=== PATIENT | female | born 1945 | race Caucasian/White ===

== ENCOUNTER 2018-05-12 20:30 | Inpatient (IN) | payer MEDICARE ==
[~2018-05-12] VITALS: Ht 167.6 cm; Wt 97.2 kg
[2018-05-12] MEDS ORDERED: MAG HYDROX/AL HYDROX/SIMETH 30 ML ORAL.SUSP PO PRN (21:45)
[2018-05-12] MEDS ORDERED: METHYL SALICYLATE/MENTHOL TOPICAL OINTMENT 29GM TUBE. TP PRN (21:45)
[2018-05-12] MEDS ORDERED: MAGNESIUM HYDROXIDE 2,400 MG/30 ML ORAL.SUSP. PO PRN (21:45)
[2018-05-12] MEDS ORDERED: ACETAMINOPHEN 325 MG TABLET PO PRN (21:45)
--- NOTE | 2018-05-12 21:49 | EKG ---
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
[2018-05-12 22:22] LABS: BASO % 0 % (0-3); EOS # 0.1 x10^3/uL (0.0-0.7); EOS % 3 % (0-3); HEMATOCRIT 31.8 % (36.0-47.0); HEMOGLOBIN 10.7 g/dL (12.0-15.5); LYMPH # 0.9 x10^3/uL (1.0-4.8); LYMPH % 21 % (24-48); MEAN CORPUSCULAR HEMOGLOBIN 28 pg (25-35); MEAN CORPUSCULAR HGB CONC 34 g/dL (31-37); MEAN CORPUSCULAR VOLUME 83 fL (79-100); MONO # 0.5 x10^3/uL (0.0-1.1); MONO % 11 % (0-9); NEUT # 2.8 x10^3uL (1.8-7.7); NEUT % 65 % (31-73); PLATELET COUNT 228 x10^3/uL (140-400); RED BLOOD COUNT 3.85 x10^6/uL (3.50-5.40); RED CELL DISTRIBUTION WIDTH 17.7 % (11.5-14.5); WHITE BLOOD COUNT 4.3 x10^3/uL (4.0-11.0)
[2018-05-12] MEDS ORDERED: ASCO500T3 PO (22:24)
[2018-05-12] MEDS ORDERED: HYDR30CR61 RC (22:24)
[2018-05-12] MEDS ORDERED: XOPENEX1.25 MG/3 IH (22:24)
[2018-05-12] MEDS ORDERED: CYAN100T PO (22:24)
[2018-05-12] MEDS ORDERED: ACET325T9 PO (22:24)
[2018-05-12] MEDS ORDERED: CARB1TAB2 PO (22:24)
[2018-05-12] MEDS ORDERED: MULT1TAB52 PO (22:24)
[2018-05-12] MEDS ORDERED: SERT50TA PO (22:24)
[2018-05-12] MEDS ORDERED: ROPI1TAB PO ×2 (22:24)
[2018-05-12] MEDS ORDERED: VITA200C7 PO (22:24)
[2018-05-12] MEDS ORDERED: LEVE500T56 PO (22:24)
[2018-05-12] MEDS ORDERED: CEFD300C PO (22:24)
[2018-05-12] MEDS ORDERED: BACL10TA PO (22:24)
[2018-05-12] MEDS ORDERED: PANT20TA58 PO (22:24)
[2018-05-12] MEDS ORDERED: MAGN400T22 PO (22:24)
[2018-05-12] MEDS ORDERED: [UNRECOGNIZED DRUG - CODE] PO (22:24)
[2018-05-12] MEDS ORDERED: CALC1TAB75 PO (22:24)
[2018-05-12] MEDS ORDERED: KRIL1CAP8 PO (22:24)
[2018-05-12] MEDS ORDERED: POTA20TA82 PO (22:24)
[2018-05-12] MEDS ORDERED: BENA20TA16 PO (22:24)
[2018-05-12] MEDS ORDERED: OMEG1CAP2 PO (22:24)
[2018-05-12 22:30] LABS: ALBUMIN 2.9 g/dL (3.4-5.0); CREATININE 0.7 mg/dL (0.6-1.0); GFR 82.3; MAGNESIUM 1.4 mg/dL (1.8-2.4); POTASSIUM 3.3 mmol/L (3.5-5.1); TOTAL BILIRUBIN 0.4 mg/dL (0.2-1.0); TOTAL PROTEIN 5.8 g/dL (6.4-8.2)
[2018-05-12] MEDS ORDERED: HYDROCORTISONE 2.5% RECTAL CREAM 30GM TUBE. RC PRN (22:30)
[2018-05-12] MEDS ORDERED: NON FORMULARY ITEM (Levalbuterol Hcl (Xopenex) 1.25 MG) IH PRN (22:45)
[2018-05-12] MEDS ORDERED: DEXTROSE 50% 25 GM / 50ML DISP.SYRIN. IV PRN (22:45)
[2018-05-12] MEDS: CARBIDOPA/LEVODOPA 25/100MG TABLET PO SCH (22:50)
[2018-05-12] MEDS: levETIRAcetam 500 MG TABLET PO SCH (22:52)
[2018-05-12] MEDS: BACLOFEN 10 MG TABLET PO SCH (22:52)
[2018-05-12] MEDS ORDERED: ALBUTEROL SULFATE 2.5 MG/3 ML NEBU. NEB PRN (23:00)
[2018-05-12] MEDS: CEFPODOXIME PROXETIL 100 MG TABLET PO SCH (23:07)
[2018-05-13] MEDS: ACETAMINOPHEN 325 MG TABLET PO PRN (01:37)
[2018-05-13] MEDS: rOPINIRole 1 MG TABLET. PO SCH ×3 (01:42→14:18)
[2018-05-13] MEDS: CARBIDOPA/LEVODOPA 25/100MG TABLET PO SCH ×8 (01:43→22:58)
[2018-05-13] MEDS: ENTACAPONE 200 MG TABLET PO SCH ×6 (04:00→20:00)
[2018-05-13 04:30] VITALS: BP 176/85
[2018-05-13] MEDS: CALCIUM CARB/VIT D3 500/200 TABLET PO SCH ×2 (05:44→08:08)
[2018-05-13 06:02] VITALS: BP 144/68
[2018-05-13] MEDS: INSULIN LISPRO 300 UNITS/3 ML INSULN.PEN. SQ SCH ×3 (08:00→17:00)
[2018-05-13] MEDS: MAGNESIUM OXIDE 400 MG TABLET PO SCH (08:08)
[2018-05-13] MEDS: MULTIVITAMIN with MINERAL TABLET. PO SCH (08:08)
[2018-05-13] MEDS: levETIRAcetam 500 MG TABLET PO SCH ×2 (08:08→20:12)
[2018-05-13] MEDS: LACTOBACILLUS RHAMNOSUS GG 1 CAPSULE. PO SCH ×2 (08:08→20:12)
[2018-05-13] MEDS: CEFPODOXIME PROXETIL 100 MG TABLET PO SCH ×2 (08:08→20:13)
[2018-05-13] MEDS: POTASSIUM CHLORIDE 20 MEQ TABLET.ER. PO SCH (08:08)
[2018-05-13] MEDS: LISINOPRIL 20 MG TABLET PO SCH (08:08)
[2018-05-13] MEDS: BACLOFEN 10 MG TABLET PO SCH ×4 (08:09→20:12)
[2018-05-13] MEDS: PANTOPRAZOLE 40 MG TABLET. PO SCH ×2 (08:09→17:42)
[2018-05-13] MEDS ORDERED: SERTRALINE 50 MG TABLET. PO SCH (09:00)
[2018-05-13 11:52] LABS: THYROID STIM HORMONE (TSH) 1.754 uIU/mL (0.358-3.740)
[2018-05-13] MEDS ORDERED: CLON0.5T11 PO (13:38)
[2018-05-13] MEDS ORDERED: OXYC-411 PO (13:38)
[2018-05-13] MEDS ORDERED: SERT25TA PO (13:38)
[2018-05-13] MEDS ORDERED: METF10007 PO (13:38)
[2018-05-13] MEDS ORDERED: METF500T16 PO (13:38)
[2018-05-13] MEDS ORDERED: oxyCODONE/APAP 10/325 1 TAB TABLET PO PRN (13:45)
[2018-05-13] MEDS: clonazePAM 0.5 MG TABLET PO SCH ×2 (14:21→20:15)
[2018-05-13 15:42] VITALS: BP 145/73
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
[2018-05-13] MEDS ORDERED: OMEGA ACID ETHYL ESTERS PO SCH (17:00)
[2018-05-13] MEDS: VITAMIN E 200 UNIT CAPSULE. PO SCH (17:00)
[2018-05-13] MEDS: metFORMIN 500 MG TABLET PO SCH (17:41)
[2018-05-13] MEDS: CYANOCOBALAMIN (VITAMIN B-12) 1,000 MCG TABLET. PO SCH (17:42)
[2018-05-13] MEDS: OMEGA-3 FATTY ACIDS/FISH OIL 1,000 MG CAPSULE. PO SCH (17:42)
[2018-05-13] MEDS: rOPINIRole 2 MG TABLET. PO SCH (17:42)
[2018-05-13] MEDS: ASCORBIC ACID 500 MG TABLET PO SCH (17:42)
[2018-05-13 21:07] LABS: HEMOGLOBIN A1C 5.8 % (4.8-5.6); THYROXINE 7.7 ug/dL (4.5-12.0)
--- NOTE | 2018-05-13 22:49 | PDOC ---
Exam Note: Junior Note: Please also refer to the separate dictated note~for this date of service dictated separately.~Patient seen individually. Discussed the patient with Nursing staff reviewed the chart.~Reviewed interim history and current functioning. Reviewed vital signs,~Labs/ Radiology~and current medications noted below. Continue current treatment with the changes noted in the dictated addendum note Assessment: Vital Signs: Vital Signs Date Time Temp Pulse Resp B/P (MAP) Pulse Ox O2 Delivery O2 Flow Rate FiO2 05/13/18 15:42 99.1 77 20 145/73 (97) 95 I&O Intake and Output 05/13/18 07:00 Intake Total 120 ml Balance 120 ml Intake Oral 120 ml # Voids 1 Labs: Laboratory Tests Test 05/12/18 22:54 05/13/18 07:13 05/13/18 11:25 05/13/18 16:53 Glucose (Fingerstick) 152 mg/dL (70-99) H 141 mg/dL (70-99) H 166 mg/dL (70-99) H 153 mg/dL (70-99) H Test 05/13/18 19:07 Glucose (Fingerstick) 159 mg/dL (70-99) H Current Medications: Meds: Current Medications Acetaminophen (Tylenol) 650 mg PRN Q6HRS PRN PO PAIN / TEMP; Start 05/12/18 at 21:45; Stop 05/12/18 at 22:47; Status DC Multi-Ingredient Ointment (Analgesic [place]) 1 mynor PRN QID PRN TP MUSCLE PAIN; Start 05/12/18 at 21:45 Al Hydroxide/Mg Hydroxide (Mylanta Plus Xs) 15 ml PRN AFTMEALHC PRN PO DYSPEPSIA; Start 05/12/18 at 21:45 Magnesium Hydroxide (Milk Of Magnesia) 2,400 mg PRN QHS PRN PO CONSTIPATION; Start 05/12/18 at 21:45 Sertraline HCl (Zoloft) 50 mg DAILY PO Last administered on 05/13/18at 08:08; Start 05/13/18 at 09:00; Stop 05/13/18 at 13:38; Status DC Acetaminophen (Tylenol) 650 mg PRN Q4HRS PRN PO PAIN / TEMP Last administered on 05/13/18at 01:37; Start 05/12/18 at 22:30 Ascorbic Acid (Vitamin C) 500 mg DAILY@1700 PO Last administered on 05/13/18at 17:42; Start 05/13/18 at 17:00 Carbidopa/Levodopa (Sinemet 25/100) 1.5 tab 0200,0530,1100,1700 PO Last administered on 05/13/18 17:41; Start 05/13/18 at 02:00 Carbidopa/Levodopa (Sinemet 25/100) 1 tab 0845,1415,2000,2230 PO Last administered on 05/13/18at 20:12; Start 05/12/18 at 23:00 Cyanocobalamin (Vitamin B-12) 250 mcg DAILY@1700 PO Last administered on 17:42; Start 05/13/18 at 17:00 Hydrocortisone (Proctosol-Hc) 1 mynor PRN QID PRN RC HEMORRHOIDS; Start 05/12/18 at 22:30 Baclofen (Lioresal) 10 mg QID PO Last administered on 05/13/18at 20:12; Start at 23:00 Entacapone (Comtan) 200 mg Q4HRS PO ; Start 05/13/18 at 00:00 Lisinopril (Prinivil) 20 mg DAILY PO Last administered on 05/13/18at 08:08; Start 05/13/18 at 09:00 Calcium/Vitamin D (Oscal D 500mg/ 200uts) 1 tab BID@0530,0845 PO Last administered on 05/13/18 08:08; Start 05/13/18 at 05:30 Cefpodoxime Proxetil (Vantin) 200 mg BID PO Last administered on 05/13/18at 20: 13; Start 05/12/18 at 23:00; Stop 05/19/18 at 09:01 Fish Oil (Fish Oil) 1,000 mg DAILY@1700 PO Last administered on 05/13/18at 17:42 ; Start 05/13/18 at 17:00 Non-Formulary Medication (Levalbuterol Hcl (Xopenex)) 1.25 mg PRN Q6HRS PRN IH SHORTNESS OF BREATH; Start 05/12/18 at 22:45; Status UNV Levetiracetam (Keppra) 500 mg BID PO Last administered on 05/13/18 20:12; Start 05/12/18 at 23:00 Magnesium Oxide (Magnesium Oxide) 400 mg DAILY PO Last administered on 08:08; Start 05/13/18 at 09:00 Multivitamins/ Calcium (Thera-M Plus) 1 tab DAILY PO Last administered on 08:08; Start 05/13/18 at 09:00 Non-Formulary Medication (Sullivan-3 Acid Ethyl Esters (Lovaza)) 1 gm DAILY@1700 PO ; Start 05/13/18 at 17:00; Stop 05/13/18 at 17:00; Status DC Pantoprazole Sodium (Protonix) 20 mg BIDWMEALS PO Last administered on 17:42; Start 05/13/18 at 08:00 Potassium Chloride (Klor-Con) 20 meq DAILYWBKFT PO Last administered on 08:08; Start 05/13/18 at 08:00 Ropinirole HCl (Requip) 1.5 mg TID@0200,0530,1100 PO Last administered on 14:18; Start 05/13/18 at 02:00 Ropinirole HCl (Requip) 2 mg DAILY@1700 PO Last administered on 05/13/18 17:42 ; Start 05/13/18 at 17:00 Vitamin E 200 unit DAILY@1700 PO Last administered on 05/13/18at 17:00; Start at 17:00 Insulin Human Lispro (HumaLOG) 0-9 UNITS TIDWMEALS SQ Last administered on 05/13at 17:00; Start 05/13/18 at 08:00 Dextrose 12.5 gm PRN Q15MIN PRN IV SEE COMMENTS; Start 05/12/18 at 22:45 Albuterol Sulfate (Ventolin) 2.5 mg PRN Q6HRS PRN NEB SHORTNESS OF BREATH; Start 05/12/18 at 23:00 Lactobacillus Rhamnosus (Culturelle) 1 cap BID PO Last administered on at 20:12; Start 05/13/18 at 09:00 Clonazepam (KlonoPIN) 0.5 mg TID PO Last administered on 9/15/18at 20:15; Start 05/13/18 at 14:00 Oxycodone/ Acetaminophen (Percocet 10/325) 1 tab PRN QID PRN PO PAIN; Start at 13:45 Metformin HCl (Glucophage) 1,000 mg DAILYWBKFT PO ; Start 05/14/18 at 08:00 Metformin HCl (Glucophage) 500 mg DAILYWSUP PO Last administered on 05/13/18at 17:41; Start 05/13/18 at 17:00 Sertraline HCl (Zoloft) 25 mg DAILY PO ; Start 05/14/18 at 09:00 Active Scripts Active Reported Oxycodone-Acetaminophen 10-325 (Oxycodone Hcl/Acetaminophen) 1 Each Tablet 1 Each PO PRN QID PRN Metformin Hcl 500 Mg Tablet 500 Mg PO DAILYWSUP Metformin Hcl 1,000 Mg Tablet 1,000 Mg PO DAILYWBKFT Clonazepam 0.5 Mg Tablet 0.5 Mg PO TID Zoloft (Sertraline Hcl) 25 Mg Tablet 25 Mg PO DAILY Requip (Ropinirole Hcl) 1 Mg Tablet 2 Mg PO DAILY@1700 Requip (Ropinirole Hcl) 1 Mg Tablet 1.5 Mg PO TID@0200,0530,1100 Keppra (Levetiracetam) 500 Mg Tablet 500 Mg PO BID Zoloft (Sertraline Hcl) 50 Mg Tablet 50 Mg PO DAILY Potassium Chloride 20 Meq Tablet.er 20 Meq PO DAILY Protonix (Pantoprazole Sodium) 20 Mg Tablet.dr 20 Mg PO BIDWMEALS Lovaza (Sullivan-3 Acid Ethyl Esters) 1 Gm Capsule 1 Gm PO DAILY@1700 Multivitamins (Multivitamin) 1 Each Tablet 1 Each PO DAILY Mag-Oxide (Magnesium Oxide) 400 Mg Tablet 400 Mg PO DAILY Xopenex (Levalbuterol Hcl) 1.25 Mg/3 Ml Vial.neb 1.25 Mg IH PRN Q6HRS PRN Sullivan-3 Krill Oil 300 Mg Sftg (Krill/Sullivan-3/Dha/Epa/Lipids) 1 Each Capsule 1 Each PO DAILY@1700 Anusol-Hc (Hydrocortisone) 30 Gm Cream..g. 1 Mynor RC PRN QID PRN Comtan (Entacapone) 200 Mg Tablet 50 Mg PO Q4HRS Vitamin E (Vitamin E Acetate) 200 Unit Capsule 200 Unit PO DAILY@1700 Vitamin B-12 (Cyanocobalamin (Vitamin B-12)) 100 Mcg Tablet 100 Mcg PO DAILY@ 1700 Cefdinir 300 Mg Capsule 300 Mg PO BID 7 Days Sinemet 25-100 Mg Tablet (Carbidopa/Levodopa) 1 Each Tablet 1 Each PO QID Sinemet 25-100 Mg Tablet (Carbidopa/Levodopa) 1 Each Tablet 1 Each PO QID Calcium 600 + Vit D 200 Tablet (Calcium Carbonate/Vitamin D3) 1 Each Tablet 1 Each PO BID@0530,0845 Lotensin (Benazepril Hcl) 20 Mg Tablet 20 Mg PO DAILY Baclofen 10 Mg Tablet 10 Mg PO QID Ascorbic Acid 500 Mg Tablet 500 Mg PO DAILY@1700 Tylenol (Acetaminophen) 325 Mg Tablet 650 Mg PO PRN Q4HRS PRN I have reviewed the current psychotropics carefully including drug interactions. Risk benefit ratio favors no change other than as noted in my dictated progress note. Diagnosis: Problems: (1) Anxiety disorder (2) Parkinson's disease (3) Impulse control disorder (4) Major depressive disorder, recurrent episode (5) Delirium due to general medical condition VIRY MCGRAW MD May 13, 2018 22:49
[2018-05-14] MEDS: rOPINIRole 1 MG TABLET. PO SCH ×3 (03:02→13:11)
[2018-05-14] MEDS: ENTACAPONE 200 MG TABLET PO SCH ×4 (03:03→12:00)
[2018-05-14] MEDS: CARBIDOPA/LEVODOPA 25/100MG TABLET PO SCH ×8 (03:03→23:14)
[2018-05-14 05:49] VITALS: BP 161/80
[2018-05-14] MEDS: CALCIUM CARB/VIT D3 500/200 TABLET PO SCH ×3 (06:05→20:05)
[2018-05-14] MEDS: MAGNESIUM OXIDE 400 MG TABLET PO SCH (07:20)
[2018-05-14] MEDS: PANTOPRAZOLE 40 MG TABLET. PO SCH ×2 (07:20→18:18)
[2018-05-14] MEDS: MULTIVITAMIN with MINERAL TABLET. PO SCH (07:20)
[2018-05-14] MEDS: LISINOPRIL 20 MG TABLET PO SCH (07:21)
[2018-05-14] MEDS: CEFPODOXIME PROXETIL 100 MG TABLET PO SCH ×2 (07:21→20:07)
[2018-05-14] MEDS: BACLOFEN 10 MG TABLET PO SCH ×4 (07:21→20:08)
[2018-05-14] MEDS: POTASSIUM CHLORIDE 20 MEQ TABLET.ER. PO SCH (07:22)
[2018-05-14] MEDS: LACTOBACILLUS RHAMNOSUS GG 1 CAPSULE. PO SCH ×2 (07:22→20:08)
[2018-05-14] MEDS: levETIRAcetam 500 MG TABLET PO SCH ×2 (07:22→20:07)
[2018-05-14] MEDS: clonazePAM 0.5 MG TABLET PO SCH ×3 (07:28→20:07)
[2018-05-14] MEDS: metFORMIN 500 MG TABLET PO SCH ×2 (07:28→18:17)
[2018-05-14] MEDS: SERTRALINE 25 MG TABLET. PO SCH (07:37)
[2018-05-14] MEDS: INSULIN LISPRO 300 UNITS/3 ML INSULN.PEN. SQ SCH ×3 (08:00→16:56)
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
[2018-05-14 16:36] VITALS: BP 138/71
[2018-05-14] MEDS: VITAMIN E 200 UNIT CAPSULE. PO SCH (17:00)
[2018-05-14] MEDS: ASCORBIC ACID 500 MG TABLET PO SCH (18:17)
[2018-05-14] MEDS: CYANOCOBALAMIN (VITAMIN B-12) 1,000 MCG TABLET. PO SCH (18:17)
[2018-05-14] MEDS: OMEGA-3 FATTY ACIDS/FISH OIL 1,000 MG CAPSULE. PO SCH (18:18)
[2018-05-14] MEDS: rOPINIRole 2 MG TABLET. PO SCH (18:18)
[2018-05-14] MEDS: ENTACAPONE 200 MG PO SCH ×3 (18:18→23:14)
[2018-05-14] MEDS: oxyCODONE/APAP 10/325 1 TAB TABLET PO SCH (20:10)
[2018-05-14] MEDS ORDERED: oxyCODONE/APAP 10/325 1 TAB TABLET PO PRN (21:00)
--- NOTE | 2018-05-14 21:00 | PDOC ---
Exam Note: Junior Note: Please also refer to the separate dictated note~for this date of service dictated separately.~Patient seen individually. Discussed the patient with Nursing staff reviewed the chart.~Reviewed interim history and current functioning. Reviewed vital signs,~Labs/ Radiology~and current medications noted below. Continue current treatment with the changes noted in the dictated addendum note Assessment: Vital Signs: Vital Signs Date Time Temp Pulse Resp B/P (MAP) Pulse Ox O2 Delivery O2 Flow Rate FiO2 05/14/18 16:36 97.6 72 18 138/71 (93) 96 I&O Intake and Output 05/14/18 07:00 Intake Total 240 ml Balance 240 ml Intake Oral 240 ml # Voids 2 # Bowel Movements 2 Labs: Laboratory Tests Test 05/14/18 07:13 05/14/18 11:22 05/14/18 16:31 05/14/18 19:07 Glucose (Fingerstick) 138 mg/dL (70-99) H 161 mg/dL (70-99) H 143 mg/dL (70-99) H 136 mg/dL (70-99) H Current Medications: Meds: Current Medications Acetaminophen (Tylenol) 650 mg PRN Q6HRS PRN PO PAIN / TEMP; Start 05/12/18 at 21:45; Stop 05/12/18 at 22:47; Status DC Multi-Ingredient Ointment (Analgesic [place]) 1 mynor PRN QID PRN TP MUSCLE PAIN; Start 05/12/18 at 21:45 Al Hydroxide/Mg Hydroxide (Mylanta Plus Xs) 15 ml PRN AFTMEALHC PRN PO DYSPEPSIA; Start 05/12/18 at 21:45 Magnesium Hydroxide (Milk Of Magnesia) 2,400 mg PRN QHS PRN PO CONSTIPATION; Start 05/12/18 at 21:45 Sertraline HCl (Zoloft) 50 mg DAILY PO Last administered on 05/13/18at 08:08; Start 05/13/18 at 09:00; Stop 05/13/18 at 13:38; Status DC Acetaminophen (Tylenol) 650 mg PRN Q4HRS PRN PO PAIN / TEMP Last administered on 05/13/18at 01:37; Start 05/12/18 at 22:30 Ascorbic Acid (Vitamin C) 500 mg DAILY@1700 PO Last administered on 05/14/18 18:17; Start 05/13/18 at 17:00 Carbidopa/Levodopa (Sinemet 25/100) 1.5 tab 0200,0530,1100,1700 PO Last administered on 05/14/18 18:17; Start 05/13/18 at 02:00 Carbidopa/Levodopa (Sinemet 25/100) 1 tab 0845,1415,2000,2230 PO Last administered on 05/14/18at 20:07; Start 05/12/18 at 23:00 Cyanocobalamin (Vitamin B-12) 250 mcg DAILY@1700 PO Last administered on 18:17; Start 05/13/18 at 17:00 Hydrocortisone (Proctosol-Hc) 1 mynor PRN QID PRN RC HEMORRHOIDS; Start 05/12/18 at 22:30 Baclofen (Lioresal) 10 mg QID PO Last administered on 05/14/18at 20:08; Start at 23:00 Entacapone (Comtan) 200 mg Q4HRS PO ; Start 05/13/18 at 00:00; Stop 05/14/18 at 12:26; Status DC Lisinopril (Prinivil) 20 mg DAILY PO Last administered on 05/14/18at 07:21; Start 05/13/18 at 09:00 Calcium/Vitamin D (Oscal D 500mg/ 200uts) 1 tab BID@0530,0845 PO Last administered on 05/14/18at 20:05; Start 05/13/18 at 05:30 Cefpodoxime Proxetil (Vantin) 200 mg BID PO Last administered on 05/14/18at 20: 07; Start 05/12/18 at 23:00; Stop 05/19/18 at 09:01 Fish Oil (Fish Oil) 1,000 mg DAILY@1700 PO Last administered on 05/14/18 18:18 ; Start 05/13/18 at 17:00 Non-Formulary Medication (Levalbuterol Hcl (Xopenex)) 1.25 mg PRN Q6HRS PRN IH SHORTNESS OF BREATH; Start 05/12/18 at 22:45; Status UNV Levetiracetam (Keppra) 500 mg BID PO Last administered on 05/14/18 20:07; Start 05/12/18 at 23:00 Magnesium Oxide (Magnesium Oxide) 400 mg DAILY PO Last administered on 07:20; Start 05/13/18 at 09:00 Multivitamins/ Calcium (Thera-M Plus) 1 tab DAILY PO Last administered on at 07:20; Start 05/13/18 at 09:00 Non-Formulary Medication ([place]-3 Acid Ethyl Esters (Lovaza)) 1 gm DAILY@1700 PO ; Start 05/13/18 at 17:00; Stop 05/13/18 at 17:00; Status DC Pantoprazole Sodium (Protonix) 20 mg BIDWMEALS PO Last administered on 18:18; Start 05/13/18 at 08:00 Potassium Chloride (Klor-Con) 20 meq DAILYWBKFT PO Last administered on at 07:22; Start 05/13/18 at 08:00 Ropinirole HCl (Requip) 1.5 mg TID@0200,0530,1100 PO Last administered on at 13:11; Start 05/13/18 at 02:00 Ropinirole HCl (Requip) 2 mg DAILY@1700 PO Last administered on 05/14/18 18:18 ; Start 05/13/18 at 17:00 Vitamin E 200 unit DAILY@1700 PO Last administered on 05/14/18at 17:00; Start at 17:00 Insulin Human Lispro (HumaLOG) 0-9 UNITS TIDWMEALS SQ Last administered on 05/13at 17:00; Start 05/13/18 at 08:00 Dextrose 12.5 gm PRN Q15MIN PRN IV SEE COMMENTS; Start 05/12/18 at 22:45 Albuterol Sulfate (Ventolin) 2.5 mg PRN Q6HRS PRN NEB SHORTNESS OF BREATH; Start 05/12/18 at 23:00 Lactobacillus Rhamnosus (Culturelle) 1 cap BID PO Last administered on at 20:08; Start 05/13/18 at 09:00 Clonazepam (KlonoPIN) 0.5 mg TID PO Last administered on 05/14/18at 07:28; Start 05/13/18 at 14:00; Stop 05/14/18 at 12:07; Status DC Oxycodone/ Acetaminophen (Percocet 10/325) 1 tab PRN QID PRN PO PAIN Last administered on 05/14/18at 07:28; Start 05/13/18 at 13:45; Stop 05/14/18 at 17:29 ; Status DC Metformin HCl (Glucophage) 1,000 mg DAILYWBKFT PO Last administered on at 07:28; Start 05/14/18 at 08:00 Metformin HCl (Glucophage) 500 mg DAILYWSUP PO Last administered on 05/14/18at 18:17; Start 05/13/18 at 17:00 Sertraline HCl (Zoloft) 25 mg DAILY PO Last administered on 05/14/18at 07:37; Start 05/14/18 at 09:00 Clonazepam (KlonoPIN) 0.5 mg BID PO Last administered on 05/14/18at 20:07; Start 05/14/18 at 21:00; Stop 05/16/18 at 21:01 Clonazepam (KlonoPIN) 0.25 mg DAILY@1400 PO ; Start 05/14/18 at 14:00; Stop at 14:01 Non-Formulary Medication 1 ea Q4HRS PO Last administered on 05/14/18at 20:08; Start 05/14/18 at 16:00 Clonazepam (KlonoPIN) 0.25 mg Taper BID92 PO ; Start 05/17/18 at 09:00; Stop at 08:59 Clonazepam (KlonoPIN) 0.5 mg HS PO ; Start 05/17/18 at 21:00; Stop 05/19/18 at 21:01 Olanzapine (ZyPREXA ZYDIS) 1.25 mg PRN Q2HR PRN PO PSYCHOSIS; Start 05/14/18 at 14:15 Oxycodone/ Acetaminophen (Percocet 10/325) 1 tab QID PRN PO PAIN; Start at 21:00; Stop 05/14/18 at 21:00; Status DC Oxycodone/ Acetaminophen (Percocet 10/325) 1 tab QID PO Last administered on at 20:10; Start 05/14/18 at 21:00 Active Scripts Active Reported Oxycodone-Acetaminophen 10-325 (Oxycodone Hcl/Acetaminophen) 1 Each Tablet 1 Each PO PRN QID PRN Metformin Hcl 500 Mg Tablet 500 Mg PO DAILYWSUP Metformin Hcl 1,000 Mg Tablet 1,000 Mg PO DAILYWBKFT Clonazepam 0.5 Mg Tablet 0.5 Mg PO TID Zoloft (Sertraline Hcl) 25 Mg Tablet 25 Mg PO DAILY Requip (Ropinirole Hcl) 1 Mg Tablet 2 Mg PO DAILY@1700 Requip (Ropinirole Hcl) 1 Mg Tablet 1.5 Mg PO TID@0200,0530,1100 Keppra (Levetiracetam) 500 Mg Tablet 500 Mg PO BID Zoloft (Sertraline Hcl) 50 Mg Tablet 50 Mg PO DAILY Potassium Chloride 20 Meq Tablet.er 20 Meq PO DAILY Protonix (Pantoprazole Sodium) 20 Mg Tablet.dr 20 Mg PO BIDWMEALS Lovaza ([place]-3 Acid Ethyl Esters) 1 Gm Capsule 1 Gm PO DAILY@1700 Multivitamins (Multivitamin) 1 Each Tablet 1 Each PO DAILY Mag-Oxide (Magnesium Oxide) 400 Mg Tablet 400 Mg PO DAILY Xopenex (Levalbuterol Hcl) 1.25 Mg/3 Ml Vial.neb 1.25 Mg IH PRN Q6HRS PRN [place]-3 Krill Oil 300 Mg Sftg (Krill/[place]-3/Dha/Epa/Lipids) 1 Each Capsule 1 Each PO DAILY@1700 Anusol-Hc (Hydrocortisone) 30 Gm Cream..g. 1 Mynor RC PRN QID PRN Comtan (Entacapone) 200 Mg Tablet 50 Mg PO Q4HRS Vitamin E (Vitamin E Acetate) 200 Unit Capsule 200 Unit PO DAILY@1700 Vitamin B-12 (Cyanocobalamin (Vitamin B-12)) 100 Mcg Tablet 100 Mcg PO DAILY@ 1700 Cefdinir 300 Mg Capsule 300 Mg PO BID 7 Days Sinemet 25-100 Mg Tablet (Carbidopa/Levodopa) 1 Each Tablet 1 Each PO QID Sinemet 25-100 Mg Tablet (Carbidopa/Levodopa) 1 Each Tablet 1 Each PO QID Calcium 600 + Vit D 200 Tablet (Calcium Carbonate/Vitamin D3) 1 Each Tablet 1 Each PO BID@0530,0845 Lotensin (Benazepril Hcl) 20 Mg Tablet 20 Mg PO DAILY Baclofen 10 Mg Tablet 10 Mg PO QID Ascorbic Acid 500 Mg Tablet 500 Mg PO DAILY@1700 Tylenol (Acetaminophen) 325 Mg Tablet 650 Mg PO PRN Q4HRS PRN I have reviewed the current psychotropics carefully including drug interactions. Risk benefit ratio favors no change other than as noted in my dictated progress note. Diagnosis: Problems: (1) Anxiety disorder (2) Parkinson's disease (3) Impulse control disorder (4) Major depressive disorder, recurrent episode (5) Delirium due to general medical condition VIRY MCGRAW MD May 14, 2018 21:00
[2018-05-15] MEDS: CARBIDOPA/LEVODOPA 25/100MG TABLET PO SCH ×8 (02:19→23:18)
[2018-05-15] MEDS: rOPINIRole 1 MG TABLET. PO SCH ×3 (02:20→12:16)
[2018-05-15] MEDS: ENTACAPONE 200 MG PO SCH ×5 (04:56→20:43)
[2018-05-15 06:33] VITALS: BP 148/68
[2018-05-15] MEDS: metFORMIN 500 MG TABLET PO SCH ×2 (09:35→16:32)
[2018-05-15] MEDS: POTASSIUM CHLORIDE 20 MEQ TABLET.ER. PO SCH (09:35)
[2018-05-15] MEDS: PANTOPRAZOLE 40 MG TABLET. PO SCH ×2 (09:36→16:33)
[2018-05-15] MEDS: LACTOBACILLUS RHAMNOSUS GG 1 CAPSULE. PO SCH ×2 (09:36→20:44)
[2018-05-15] MEDS: levETIRAcetam 500 MG TABLET PO SCH ×2 (09:37→20:44)
[2018-05-15] MEDS: BACLOFEN 10 MG TABLET PO SCH ×4 (09:37→20:45)
[2018-05-15] MEDS: MAGNESIUM OXIDE 400 MG TABLET PO SCH (09:37)
[2018-05-15] MEDS: LISINOPRIL 20 MG TABLET PO SCH (09:38)
[2018-05-15] MEDS: MULTIVITAMIN with MINERAL TABLET. PO SCH (09:38)
[2018-05-15] MEDS: CEFPODOXIME PROXETIL 100 MG TABLET PO SCH ×2 (09:38→20:45)
[2018-05-15] MEDS: SERTRALINE 25 MG TABLET. PO SCH (09:39)
[2018-05-15] MEDS: clonazePAM 0.5 MG TABLET PO SCH ×3 (09:47→20:46)
[2018-05-15] MEDS: CALCIUM CARB/VIT D3 500/200 TABLET PO SCH (09:47)
[2018-05-15] MEDS: oxyCODONE/APAP 10/325 1 TAB TABLET PO SCH ×4 (09:48→20:47)
[2018-05-15] MEDS: INSULIN LISPRO 300 UNITS/3 ML INSULN.PEN. SQ SCH ×3 (09:49→16:35)
[2018-05-15 15:51] VITALS: BP 127/83
[2018-05-15] MEDS: VITAMIN E 200 UNIT CAPSULE. PO SCH (16:30)
[2018-05-15] MEDS: OMEGA-3 FATTY ACIDS/FISH OIL 1,000 MG CAPSULE. PO SCH (16:31)
[2018-05-15] MEDS: rOPINIRole 2 MG TABLET. PO SCH (16:33)
[2018-05-15] MEDS: ASCORBIC ACID 500 MG TABLET PO SCH (16:34)
[2018-05-15] MEDS: CYANOCOBALAMIN (VITAMIN B-12) 1,000 MCG TABLET. PO SCH (16:34)
--- NOTE | 2018-05-15 20:51 | PDOC ---
Exam Note: Junior Note: Please also refer to the separate dictated note~for this date of service dictated separately.~Patient seen individually. Discussed the patient with Nursing staff reviewed the chart.~Reviewed interim history and current functioning. Reviewed vital signs,~Labs/ Radiology~and current medications noted below. Continue current treatment with the changes noted in the dictated addendum note Assessment: Vital Signs: Vital Signs Date Time Temp Pulse Resp B/P (MAP) Pulse Ox O2 Delivery O2 Flow Rate FiO2 05/15/18 15:51 97.9 80 18 127/83 (98) 94 05/15/18 06:33 Room Air I&O Intake and Output 05/15/18 07:00 Intake Total 485 ml Balance 485 ml Intake Oral 485 ml # Voids 1 # Bowel Movements 1 Labs: Laboratory Tests Test 05/15/18 07:13 05/15/18 11:19 05/15/18 16:24 Glucose (Fingerstick) 133 mg/dL (70-99) H 152 mg/dL (70-99) H 69 mg/dL (70-99) L Current Medications: Meds: Current Medications Acetaminophen (Tylenol) 650 mg PRN Q6HRS PRN PO PAIN / TEMP; Start 05/12/18 at 21:45; Stop 05/12/18 at 22:47; Status DC Multi-Ingredient Ointment (Analgesic [place]) 1 mynor PRN QID PRN TP MUSCLE PAIN; Start 05/12/18 at 21:45 Al Hydroxide/Mg Hydroxide (Mylanta Plus Xs) 15 ml PRN AFTMEALHC PRN PO DYSPEPSIA; Start 05/12/18 at 21:45 Magnesium Hydroxide (Milk Of Magnesia) 2,400 mg PRN QHS PRN PO CONSTIPATION; Start 05/12/18 at 21:45 Sertraline HCl (Zoloft) 50 mg DAILY PO Last administered on 05/13/18at 08:08; Start 05/13/18 at 09:00; Stop 05/13/18 at 13:38; Status DC Acetaminophen (Tylenol) 650 mg PRN Q4HRS PRN PO PAIN / TEMP Last administered on 05/13/18at 01:37; Start 05/12/18 at 22:30 Ascorbic Acid (Vitamin C) 500 mg DAILY@1700 PO Last administered on 05/15/18at 16:34; Start 05/13/18 at 17:00 Carbidopa/Levodopa (Sinemet 25/100) 1.5 tab 0200,0530,1100,1700 PO Last administered on 05/15/18at 16:34; Start 05/13/18 at 02:00 Carbidopa/Levodopa (Sinemet 25/100) 1 tab 0845,1415,2000,2230 PO Last administered on 05/15/18at 20:44; Start 05/12/18 at 23:00 Cyanocobalamin (Vitamin B-12) 250 mcg DAILY@1700 PO Last administered on at 16:34; Start 05/13/18 at 17:00 Hydrocortisone (Proctosol-Hc) 1 mynor PRN QID PRN RC HEMORRHOIDS; Start 05/12/18 at 22:30 Baclofen (Lioresal) 10 mg QID PO Last administered on 05/15/18at 20:45; Start at 23:00 Entacapone (Comtan) 200 mg Q4HRS PO ; Start 05/13/18 at 00:00; Stop 05/14/18 at 12:26; Status DC Lisinopril (Prinivil) 20 mg DAILY PO Last administered on 05/15/18at 09:38; Start 05/13/18 at 09:00 Calcium/Vitamin D (Oscal D 500mg/ 200uts) 1 tab BID@0530,0845 PO Last administered on 05/15/18at 09:47; Start 05/13/18 at 05:30 Cefpodoxime Proxetil (Vantin) 200 mg BID PO Last administered on 05/15/18at 20: 45; Start 05/12/18 at 23:00; Stop 05/19/18 at 09:01 Fish Oil (Fish Oil) 1,000 mg DAILY@1700 PO Last administered on 05/15/18at 16:31 ; Start 05/13/18 at 17:00 Non-Formulary Medication (Levalbuterol Hcl (Xopenex)) 1.25 mg PRN Q6HRS PRN IH SHORTNESS OF BREATH; Start 05/12/18 at 22:45; Status UNV Levetiracetam (Keppra) 500 mg BID PO Last administered on 05/15/18at 20:44; Start 05/12/18 at 23:00 Magnesium Oxide (Magnesium Oxide) 400 mg DAILY PO Last administered on 09:37; Start 05/13/18 at 09:00 Multivitamins/ Calcium (Thera-M Plus) 1 tab DAILY PO Last administered on at 09:38; Start 05/13/18 at 09:00 Non-Formulary Medication ([place]-3 Acid Ethyl Esters (Lovaza)) 1 gm DAILY@1700 PO ; Start 05/13/18 at 17:00; Stop 05/13/18 at 17:00; Status DC Pantoprazole Sodium (Protonix) 20 mg BIDWMEALS PO Last administered on 16:33; Start 05/13/18 at 08:00 Potassium Chloride (Klor-Con) 20 meq DAILYWBKFT PO Last administered on at 09:35; Start 05/13/18 at 08:00 Ropinirole HCl (Requip) 1.5 mg TID@0200,0530,1100 PO Last administered on at 12:16; Start 05/13/18 at 02:00 Ropinirole HCl (Requip) 2 mg DAILY@1700 PO Last administered on 05/15/18 16:33 ; Start 05/13/18 at 17:00 Vitamin E 200 unit DAILY@1700 PO Last administered on 05/15/18at 16:30; Start at 17:00 Insulin Human Lispro (HumaLOG) 0-9 UNITS TIDWMEALS SQ Last administered on 05/15 12:19; Start 05/13/18 at 08:00 Dextrose 12.5 gm PRN Q15MIN PRN IV SEE COMMENTS; Start 05/12/18 at 22:45 Albuterol Sulfate (Ventolin) 2.5 mg PRN Q6HRS PRN NEB SHORTNESS OF BREATH; Start 05/12/18 at 23:00 Lactobacillus Rhamnosus (Culturelle) 1 cap BID PO Last administered on at 20:44; Start 05/13/18 at 09:00 Clonazepam (KlonoPIN) 0.5 mg TID PO Last administered on 05/14/18at 07:28; Start 05/13/18 at 14:00; Stop 05/14/18 at 12:07; Status DC Oxycodone/ Acetaminophen (Percocet 10/325) 1 tab PRN QID PRN PO PAIN Last administered on 05/14/18at 07:28; Start 05/13/18 at 13:45; Stop 05/14/18 at 17:29 ; Status DC Metformin HCl (Glucophage) 1,000 mg DAILYWBKFT PO Last administered on at 09:35; Start 05/14/18 at 08:00 Metformin HCl (Glucophage) 500 mg DAILYWSUP PO Last administered on 05/15/18at 16:32; Start 05/13/18 at 17:00 Sertraline HCl (Zoloft) 25 mg DAILY PO Last administered on 05/15/18at 09:39; Start 05/14/18 at 09:00 Clonazepam (KlonoPIN) 0.5 mg BID PO Last administered on 05/15/18at 20:46; Start 05/14/18 at 21:00; Stop 05/16/18 at 21:01 Clonazepam (KlonoPIN) 0.25 mg DAILY@1400 PO Last administered on 05/15/18at 13: 46; Start 05/14/18 at 14:00; Stop 05/16/18 at 14:01 Non-Formulary Medication 1 ea Q4HRS PO Last administered on 05/15/18at 20:43; Start 05/14/18 at 16:00 Clonazepam (KlonoPIN) 0.25 mg Taper BID92 PO ; Start 05/17/18 at 09:00; Stop at 08:59 Clonazepam (KlonoPIN) 0.5 mg HS PO ; Start 05/17/18 at 21:00; Stop 05/19/18 at 21:01 Olanzapine (ZyPREXA ZYDIS) 1.25 mg PRN Q2HR PRN PO PSYCHOSIS; Start 05/14/18 at 14:15 Oxycodone/ Acetaminophen (Percocet 10/325) 1 tab QID PRN PO PAIN; Start at 21:00; Stop 05/14/18 at 21:00; Status DC Oxycodone/ Acetaminophen (Percocet 10/325) 1 tab QID PO Last administered on 9/ 17/18at 20:47; Start 05/14/18 at 21:00 Active Scripts Active Reported Oxycodone-Acetaminophen 10-325 (Oxycodone Hcl/Acetaminophen) 1 Each Tablet 1 Each PO PRN QID PRN Metformin Hcl 500 Mg Tablet 500 Mg PO DAILYWSUP Metformin Hcl 1,000 Mg Tablet 1,000 Mg PO DAILYWBKFT Clonazepam 0.5 Mg Tablet 0.5 Mg PO TID Zoloft (Sertraline Hcl) 25 Mg Tablet 25 Mg PO DAILY Requip (Ropinirole Hcl) 1 Mg Tablet 2 Mg PO DAILY@1700 Requip (Ropinirole Hcl) 1 Mg Tablet 1.5 Mg PO TID@0200,0530,1100 Keppra (Levetiracetam) 500 Mg Tablet 500 Mg PO BID Zoloft (Sertraline Hcl) 50 Mg Tablet 50 Mg PO DAILY Potassium Chloride 20 Meq Tablet.er 20 Meq PO DAILY Protonix (Pantoprazole Sodium) 20 Mg Tablet.dr 20 Mg PO BIDWMEALS Lovaza ([place]-3 Acid Ethyl Esters) 1 Gm Capsule 1 Gm PO DAILY@1700 Multivitamins (Multivitamin) 1 Each Tablet 1 Each PO DAILY Mag-Oxide (Magnesium Oxide) 400 Mg Tablet 400 Mg PO DAILY Xopenex (Levalbuterol Hcl) 1.25 Mg/3 Ml Vial.neb 1.25 Mg IH PRN Q6HRS PRN [place]-3 Krill Oil 300 Mg Sftg (Krill/[place]-3/Dha/Epa/Lipids) 1 Each Capsule 1 Each PO DAILY@1700 Anusol-Hc (Hydrocortisone) 30 Gm Cream..g. 1 Myn[place] RC PRN QID PRN Comtan (Entacapone) 200 Mg Tablet 50 Mg PO Q4HRS Vitamin E (Vitamin E Acetate) 200 Unit Capsule 200 Unit PO DAILY@1700 Vitamin B-12 (Cyanocobalamin (Vitamin B-12)) 100 Mcg Tablet 100 Mcg PO DAILY@ 1700 Cefdinir 300 Mg Capsule 300 Mg PO BID 7 Days Sinemet 25-100 Mg Tablet (Carbidopa/Levodopa) 1 Each Tablet 1 Each PO QID Sinemet 25-100 Mg Tablet (Carbidopa/Levodopa) 1 Each Tablet 1 Each PO QID Calcium 600 + Vit D 200 Tablet (Calcium Carbonate/Vitamin D3) 1 Each Tablet 1 Each PO BID@0530,0845 Lotensin (Benazepril Hcl) 20 Mg Tablet 20 Mg PO DAILY Baclofen 10 Mg Tablet 10 Mg PO QID Ascorbic Acid 500 Mg Tablet 500 Mg PO DAILY@1700 Tylenol (Acetaminophen) 325 Mg Tablet 650 Mg PO PRN Q4HRS PRN I have reviewed the current psychotropics carefully including drug interactions. Risk benefit ratio favors no change other than as noted in my dictated progress note. Diagnosis: Problems: (1) Anxiety disorder (2) Parkinson's disease (3) Impulse control disorder (4) Major depressive disorder, recurrent episode (5) Delirium due to general medical condition VIRY MCGRAW MD May 15, 2018 20:51
[2018-05-16] MEDS: ENTACAPONE 200 MG PO SCH ×7 (00:04→23:54)
--- NOTE | 2018-05-16 00:39 | PN ---
DATE: 05/14/2018 This is a late entry, 05/14/2018, covers the elements not covered in my initial note. SUBJECTIVE: I met with the patient in the evening. This patient slept 4 hours previous night. I have discussed with the nursing staff several times during the day and also in the evening. I met with her individually and also talked with her daughter, Elizabeth at length, but the patient's diagnosis, past history where she was functioning reasonably well, living at home until she had a UTI, became delirious, was admitted to [facility], and continues to have an ongoing urinary tract infection, on Vantin. Previous night, she was screaming, anxious. At home, she was on oxycodone scheduled, but she has been getting it p.r.n. since being [facility]. Klonopin is being tapered gradually. She remains on Zoloft 25 mg a day. REVIEW OF SYSTEMS: Ambulation impaired. No CV, , pulmonary, eye system symptoms on review. MENTAL STATUS EXAM: Reasonably oriented. Speech moderate latency. Abstraction fair, computation impaired, language function intact, attention span short. Mood and affect somewhat withdrawn at times, confused. LABORATORY DATA: Reviewed. IMPRESSION: Major depressive disorder with psychotic features, delirium due to general medical condition gradually improving, rest unchanged. PLAN: Maintain Zoloft, taper the Klonopin. Treat the urinary tract infection and then depending on what symptoms are remaining, we will address these. MAN Radha MCGRAW MD DR: JAIMIE/maverick JOB#: [id number] / [id number]
[2018-05-16] MEDS: rOPINIRole 1 MG TABLET. PO SCH ×3 (02:22→12:01)
[2018-05-16] MEDS: CARBIDOPA/LEVODOPA 25/100MG TABLET PO SCH ×8 (02:23→22:33)
[2018-05-16] MEDS: CALCIUM CARB/VIT D3 500/200 TABLET PO SCH ×2 (05:34→07:58)
[2018-05-16 06:00] VITALS: BP 160/83
[2018-05-16] MEDS: CEFPODOXIME PROXETIL 100 MG TABLET PO SCH ×2 (07:56→20:03)
[2018-05-16] MEDS: MULTIVITAMIN with MINERAL TABLET. PO SCH (07:56)
[2018-05-16] MEDS: BACLOFEN 10 MG TABLET PO SCH ×4 (07:57→20:03)
[2018-05-16] MEDS: clonazePAM 0.5 MG TABLET PO SCH ×3 (07:57→20:04)
[2018-05-16] MEDS: metFORMIN 500 MG TABLET PO SCH ×2 (07:57→17:29)
[2018-05-16] MEDS: MAGNESIUM OXIDE 400 MG TABLET PO SCH (07:58)
[2018-05-16] MEDS: LISINOPRIL 20 MG TABLET PO SCH (07:59)
[2018-05-16] MEDS: levETIRAcetam 500 MG TABLET PO SCH ×2 (07:59→20:03)
[2018-05-16] MEDS: INSULIN LISPRO 300 UNITS/3 ML INSULN.PEN. SQ SCH ×3 (08:00→17:00)
[2018-05-16] MEDS: PANTOPRAZOLE 40 MG TABLET. PO SCH ×2 (08:01→17:30)
[2018-05-16] MEDS: LACTOBACILLUS RHAMNOSUS GG 1 CAPSULE. PO SCH ×2 (08:01→20:03)
[2018-05-16] MEDS: SERTRALINE 25 MG TABLET. PO SCH (08:02)
[2018-05-16] MEDS: POTASSIUM CHLORIDE 20 MEQ TABLET.ER. PO SCH (08:02)
[2018-05-16] MEDS: oxyCODONE/APAP 10/325 1 TAB TABLET PO SCH ×4 (08:03→20:04)
[2018-05-16 15:51] VITALS: BP 141/74
[2018-05-16] MEDS: ASCORBIC ACID 500 MG TABLET PO SCH (17:00)
[2018-05-16] MEDS: rOPINIRole 2 MG TABLET. PO SCH (17:29)
[2018-05-16] MEDS: OMEGA-3 FATTY ACIDS/FISH OIL 1,000 MG CAPSULE. PO SCH (17:29)
[2018-05-16] MEDS: VITAMIN E 200 UNIT CAPSULE. PO SCH (17:29)
[2018-05-16] MEDS: CYANOCOBALAMIN (VITAMIN B-12) 1,000 MCG TABLET. PO SCH (17:31)
--- NOTE | 2018-05-16 20:52 | PDOC ---
Exam Note: Junior Note: Please also refer to the separate dictated note~for this date of service dictated separately.~Patient seen individually. Discussed the patient with Nursing staff reviewed the chart.~Reviewed interim history and current functioning. Reviewed vital signs,~Labs/ Radiology~and current medications noted below. Continue current treatment with the changes noted in the dictated addendum note Assessment: Vital Signs: Vital Signs Date Time Temp Pulse Resp B/P (MAP) Pulse Ox O2 Delivery O2 Flow Rate FiO2 05/16/18 15:51 97.4 87 16 141/74 (96) 93 05/15/18 06:33 Room Air I&O Intake and Output 05/16/18 07:00 Intake Total 480 ml Balance 480 ml Intake Oral 480 ml # Voids 1 Labs: Laboratory Tests Test 05/15/18 23:12 05/16/18 07:13 05/16/18 11:32 05/16/18 16:44 Glucose (Fingerstick) 112 mg/dL (70-99) H 118 mg/dL (70-99) H 155 mg/dL (70-99) H 146 mg/dL (70-99) H Test 05/16/18 19:29 Glucose (Fingerstick) 154 mg/dL (70-99) H Current Medications: Meds: Current Medications Acetaminophen (Tylenol) 650 mg PRN Q6HRS PRN PO PAIN / TEMP; Start 05/12/18 at 21:45; Stop 05/12/18 at 22:47; Status DC Multi-Ingredient Ointment (Analgesic [place]) 1 mynor PRN QID PRN TP MUSCLE PAIN Last administered on 05/16/18at 02:53; Start 05/12/18 at 21:45 Al Hydroxide/Mg Hydroxide (Mylanta Plus Xs) 15 ml PRN AFTMEALHC PRN PO DYSPEPSIA; Start 05/12/18 at 21:45 Magnesium Hydroxide (Milk Of Magnesia) 2,400 mg PRN QHS PRN PO CONSTIPATION; Start 05/12/18 at 21:45 Sertraline HCl (Zoloft) 50 mg DAILY PO Last administered on 05/13/18at 08:08; Start 05/13/18 at 09:00; Stop 05/13/18 at 13:38; Status DC Acetaminophen (Tylenol) 650 mg PRN Q4HRS PRN PO PAIN / TEMP Last administered on 05/13/18at 01:37; Start 05/12/18 at 22:30 Ascorbic Acid (Vitamin C) 500 mg DAILY@1700 PO Last administered on 05/16/18at 17:00; Start 05/13/18 at 17:00 Carbidopa/Levodopa (Sinemet 25/100) 1.5 tab 0200,0530,1100,1700 PO Last administered on 05/16/18at 17:29; Start 05/13/18 at 02:00 Carbidopa/Levodopa (Sinemet 25/100) 1 tab 0845,1415,2000,2230 PO Last administered on 05/16/18at 20:05; Start 05/12/18 at 23:00 Cyanocobalamin (Vitamin B-12) 250 mcg DAILY@1700 PO Last administered on at 17:31; Start 05/13/18 at 17:00 Hydrocortisone (Proctosol-Hc) 1 mynor PRN QID PRN RC HEMORRHOIDS; Start 05/12/18 at 22:30 Baclofen (Lioresal) 10 mg QID PO Last administered on 05/16/18at 20:03; Start at 23:00 Entacapone (Comtan) 200 mg Q4HRS PO ; Start 05/13/18 at 00:00; Stop 05/14/18 at 12:26; Status DC Lisinopril (Prinivil) 20 mg DAILY PO Last administered on 05/16/18at 07:59; Start 05/13/18 at 09:00 Calcium/Vitamin D (Oscal D 500mg/ 200uts) 1 tab BID@0530,0845 PO Last administered on 05/16/18at 07:58; Start 05/13/18 at 05:30 Cefpodoxime Proxetil (Vantin) 200 mg BID PO Last administered on 05/16/18 20: 03; Start 05/12/18 at 23:00; Stop 05/19/18 at 09:01 Fish Oil (Fish Oil) 1,000 mg DAILY@1700 PO Last administered on 05/16/18at 17:29 ; Start 05/13/18 at 17:00 Non-Formulary Medication (Levalbuterol Hcl (Xopenex)) 1.25 mg PRN Q6HRS PRN IH SHORTNESS OF BREATH; Start 05/12/18 at 22:45; Status UNV Levetiracetam (Keppra) 500 mg BID PO Last administered on 05/16/18 20:03; Start 05/12/18 at 23:00 Magnesium Oxide (Magnesium Oxide) 400 mg DAILY PO Last administered on 07:58; Start 05/13/18 at 09:00 Multivitamins/ Calcium (Thera-M Plus) 1 tab DAILY PO Last administered on at 07:56; Start 05/13/18 at 09:00 Non-Formulary Medication ([place]-3 Acid Ethyl Esters (Lovaza)) 1 gm DAILY@1700 PO ; Start 05/13/18 at 17:00; Stop 05/13/18 at 17:00; Status DC Pantoprazole Sodium (Protonix) 20 mg BIDWMEALS PO Last administered on 17:30; Start 05/13/18 at 08:00 Potassium Chloride (Klor-Con) 20 meq DAILYWBKFT PO Last administered on at 08:02; Start 05/13/18 at 08:00 Ropinirole HCl (Requip) 1.5 mg TID@0200,0530,1100 PO Last administered on at 12:01; Start 05/13/18 at 02:00 Ropinirole HCl (Requip) 2 mg DAILY@1700 PO Last administered on 05/16/18at 17:29 ; Start 05/13/18 at 17:00 Vitamin E 200 unit DAILY@1700 PO Last administered on 05/16/18at 17:29; Start at 17:00 Insulin Human Lispro (HumaLOG) 0-9 UNITS TIDWMEALS SQ Last administered on 05/16at 12:11; Start 05/13/18 at 08:00 Dextrose 12.5 gm PRN Q15MIN PRN IV SEE COMMENTS; Start 05/12/18 at 22:45 Albuterol Sulfate (Ventolin) 2.5 mg PRN Q6HRS PRN NEB SHORTNESS OF BREATH; Start 05/12/18 at 23:00 Lactobacillus Rhamnosus (Culturelle) 1 cap BID PO Last administered on at 20:03; Start 05/13/18 at 09:00 Clonazepam (KlonoPIN) 0.5 mg TID PO Last administered on 05/14/18at 07:28; Start 05/13/18 at 14:00; Stop 05/14/18 at 12:07; Status DC Oxycodone/ Acetaminophen (Percocet 10/325) 1 tab PRN QID PRN PO PAIN Last administered on 05/14/18at 07:28; Start 05/13/18 at 13:45; Stop 05/14/18 at 17:29 ; Status DC Metformin HCl (Glucophage) 1,000 mg DAILYWBKFT PO Last administered on at 07:57; Start 05/14/18 at 08:00 Metformin HCl (Glucophage) 500 mg DAILYWSUP PO Last administered on 05/16/18at 17:29; Start 05/13/18 at 17:00 Sertraline HCl (Zoloft) 25 mg DAILY PO Last administered on 05/16/18at 08:02; Start 05/14/18 at 09:00; Stop 05/16/18 at 18:02; Status DC Clonazepam (KlonoPIN) 0.5 mg BID PO Last administered on 05/16/18at 20:04; Start 05/14/18 at 21:00; Stop 05/16/18 at 21:01 Clonazepam (KlonoPIN) 0.25 mg DAILY@1400 PO Last administered on 05/16/18at 14: 42; Start 05/14/18 at 14:00; Stop 05/16/18 at 14:01; Status DC Non-Formulary Medication 1 ea Q4HRS PO Last administered on 05/16/18at 20:08; Start 05/14/18 at 16:00 Clonazepam (KlonoPIN) 0.25 mg Taper BID92 PO ; Start 05/17/18 at 09:00; Stop at 08:59 Clonazepam (KlonoPIN) 0.5 mg HS PO ; Start 05/17/18 at 21:00; Stop 05/19/18 at 21:01 Olanzapine (ZyPREXA ZYDIS) 1.25 mg PRN Q2HR PRN PO PSYCHOSIS; Start 05/14/18 at 14:15 Oxycodone/ Acetaminophen (Percocet 10/325) 1 tab QID PRN PO PAIN; Start at 21:00; Stop 05/14/18 at 21:00; Status DC Oxycodone/ Acetaminophen (Percocet 10/325) 1 tab QID PO Last administered on at 20:04; Start 05/14/18 at 21:00 Sertraline HCl (Zoloft) 50 mg DAILY PO ; Start 05/17/18 at 09:00 Active Scripts Active Reported Oxycodone-Acetaminophen 10-325 (Oxycodone Hcl/Acetaminophen) 1 Each Tablet 1 Each PO PRN QID PRN Metformin Hcl 500 Mg Tablet 500 Mg PO DAILYWSUP Metformin Hcl 1,000 Mg Tablet 1,000 Mg PO DAILYWBKFT Clonazepam 0.5 Mg Tablet 0.5 Mg PO TID Zoloft (Sertraline Hcl) 25 Mg Tablet 25 Mg PO DAILY Requip (Ropinirole Hcl) 1 Mg Tablet 2 Mg PO DAILY@1700 Requip (Ropinirole Hcl) 1 Mg Tablet 1.5 Mg PO TID@0200,0530,1100 Keppra (Levetiracetam) 500 Mg Tablet 500 Mg PO BID Zoloft (Sertraline Hcl) 50 Mg Tablet 50 Mg PO DAILY Potassium Chloride 20 Meq Tablet.er 20 Meq PO DAILY Protonix (Pantoprazole Sodium) 20 Mg Tablet.dr 20 Mg PO BIDWMEALS Lovaza ([place]-3 Acid Ethyl Esters) 1 Gm Capsule 1 Gm PO DAILY@1700 Multivitamins (Multivitamin) 1 Each Tablet 1 Each PO DAILY Mag-Oxide (Magnesium Oxide) 400 Mg Tablet 400 Mg PO DAILY Xopenex (Levalbuterol Hcl) 1.25 Mg/3 Ml Vial.neb 1.25 Mg IH PRN Q6HRS PRN [place]-3 Krill Oil 300 Mg Sftg (Krill/[place]-3/Dha/Epa/Lipids) 1 Each Capsule 1 Each PO DAILY@1700 Anusol-Hc (Hydrocortisone) 30 Gm Cream..g. 1 Mynor RC PRN QID PRN Comtan (Entacapone) 200 Mg Tablet 50 Mg PO Q4HRS Vitamin E (Vitamin E Acetate) 200 Unit Capsule 200 Unit PO DAILY@1700 Vitamin B-12 (Cyanocobalamin (Vitamin B-12)) 100 Mcg Tablet 100 Mcg PO DAILY@ 1700 Cefdinir 300 Mg Capsule 300 Mg PO BID 7 Days Sinemet 25-100 Mg Tablet (Carbidopa/Levodopa) 1 Each Tablet 1 Each PO QID Sinemet 25-100 Mg Tablet (Carbidopa/Levodopa) 1 Each Tablet 1 Each PO QID Calcium 600 + Vit D 200 Tablet (Calcium Carbonate/Vitamin D3) 1 Each Tablet 1 Each PO BID@0530,0845 Lotensin (Benazepril Hcl) 20 Mg Tablet 20 Mg PO DAILY Baclofen 10 Mg Tablet 10 Mg PO QID Ascorbic Acid 500 Mg Tablet 500 Mg PO DAILY@1700 Tylenol (Acetaminophen) 325 Mg Tablet 650 Mg PO PRN Q4HRS PRN I have reviewed the current psychotropics carefully including drug interactions. Risk benefit ratio favors no change other than as noted in my dictated progress note. Diagnosis: Problems: (1) Anxiety disorder (2) Parkinson's disease (3) Impulse control disorder (4) Major depressive disorder, recurrent episode (5) Delirium due to general medical condition VIRY MCGRAW MD May 16, 2018 20:52
--- NOTE | 2018-05-16 23:12 | PN ---
DATE: 05/15/2018 PSYCHIATRIC PROGRESS NOTE This is a late entry of 05/15/2018, covers elements not covered in my initial note. SUBJECTIVE: I met with the patient in the evening. Per nursing report, the patient has been pleasant, compliant with medications, slept 6 hours previous evening. Oral intake is poor. She spends much time in the wheelchair. I met with her in her room. She is not very verbal, appears more confused. Ambulation impaired. REVIEW OF SYSTEMS: No CV, , pulmonary, eye, ENT system symptoms on review. Reliability is somewhat poor. MENTAL STATUS EXAM: Oriented to herself and situation. Speech coherent at times. Abstraction fair, computation impaired, language function intact. Attention span short. She appears a little more delirious. LABORATORY DATA: Reviewed. IMPRESSION: Unchanged from initial note. PLAN: No change from initial note for now, treat the UTI and then we can decide on further changes in psychotropics. VIRY MCGRAW MD DR: JAIMIE/maverick JOB#: [id number] / [id number]
[2018-05-17] MEDS: rOPINIRole 1 MG TABLET. PO SCH ×4 (02:12→17:15)
[2018-05-17] MEDS: CARBIDOPA/LEVODOPA 25/100MG TABLET PO SCH ×8 (02:15→22:42)
[2018-05-17] MEDS: ENTACAPONE 200 MG PO SCH ×5 (04:37→19:52)
[2018-05-17] MEDS: CALCIUM CARB/VIT D3 500/200 TABLET PO SCH ×2 (05:18→08:38)
[2018-05-17 05:56] VITALS: BP 138/67
[2018-05-17] MEDS: LISINOPRIL 20 MG TABLET PO SCH (08:24)
[2018-05-17] MEDS: CEFPODOXIME PROXETIL 100 MG TABLET PO SCH ×2 (08:24→19:53)
[2018-05-17] MEDS: POTASSIUM CHLORIDE 20 MEQ TABLET.ER. PO SCH (08:24)
[2018-05-17] MEDS: metFORMIN 500 MG TABLET PO SCH ×2 (08:24→17:13)
[2018-05-17] MEDS: PANTOPRAZOLE 40 MG TABLET. PO SCH ×2 (08:26→17:29)
[2018-05-17] MEDS: LACTOBACILLUS RHAMNOSUS GG 1 CAPSULE. PO SCH ×2 (08:26→19:53)
[2018-05-17] MEDS: MULTIVITAMIN with MINERAL TABLET. PO SCH (08:26)
[2018-05-17] MEDS: levETIRAcetam 500 MG TABLET PO SCH ×2 (08:27→19:53)
[2018-05-17] MEDS: BACLOFEN 10 MG TABLET PO SCH ×4 (08:27→19:53)
[2018-05-17] MEDS: MAGNESIUM OXIDE 400 MG TABLET PO SCH (08:27)
[2018-05-17] MEDS: clonazePAM 0.5 MG TABLET PO SCH ×3 (08:36→19:56)
[2018-05-17] MEDS: SERTRALINE 50 MG TABLET. PO SCH (08:38)
[2018-05-17] MEDS: oxyCODONE/APAP 10/325 1 TAB TABLET PO SCH ×4 (08:38→19:57)
[2018-05-17] MEDS: INSULIN LISPRO 300 UNITS/3 ML INSULN.PEN. SQ SCH ×3 (08:39→17:27)
[2018-05-17 16:53] VITALS: BP 123/55
[2018-05-17] MEDS: VITAMIN E 200 UNIT CAPSULE. PO SCH (17:00)
[2018-05-17] MEDS: rOPINIRole 2 MG TABLET. PO SCH (17:15)
[2018-05-17] MEDS: OMEGA-3 FATTY ACIDS/FISH OIL 1,000 MG CAPSULE. PO SCH (17:15)
[2018-05-17] MEDS: CYANOCOBALAMIN (VITAMIN B-12) 1,000 MCG TABLET. PO SCH (17:23)
[2018-05-17] MEDS: ASCORBIC ACID 500 MG TABLET PO SCH (17:24)
--- NOTE | 2018-05-17 21:12 | PDOC ---
Exam Note: Junior Note: Please also refer to the separate dictated note~for this date of service dictated separately.~Patient seen individually. Discussed the patient with Nursing staff reviewed the chart.~Reviewed interim history and current functioning. Reviewed vital signs,~Labs/ Radiology~and current medications noted below. Continue current treatment with the changes noted in the dictated addendum note Assessment: Vital Signs: Vital Signs Date Time Temp Pulse Resp B/P (MAP) Pulse Ox O2 Delivery O2 Flow Rate FiO2 05/17/18 16:53 98.3 83 20 123/55 (77) 94 Room Air I&O Intake and Output 05/17/18 07:00 Intake Total 520 ml Balance 520 ml Intake Oral 520 ml # Bowel Movements 1 Labs: Laboratory Tests Test 05/17/18 07:43 05/17/18 11:39 05/17/18 16:42 05/17/18 19:20 Glucose (Fingerstick) 153 mg/dL (70-99) H 102 mg/dL (70-99) H 138 mg/dL (70-99) H 72 mg/dL (70-99) Current Medications: Meds: Current Medications Acetaminophen (Tylenol) 650 mg PRN Q6HRS PRN PO PAIN / TEMP; Start 05/12/18 at 21:45; Stop 05/12/18 at 22:47; Status DC Multi-Ingredient Ointment (Analgesic [place]) 1 mynor PRN QID PRN TP MUSCLE PAIN Last administered on 05/16/18at 02:53; Start 05/12/18 at 21:45 Al Hydroxide/Mg Hydroxide (Mylanta Plus Xs) 15 ml PRN AFTMEALHC PRN PO DYSPEPSIA; Start 05/12/18 at 21:45 Magnesium Hydroxide (Milk Of Magnesia) 2,400 mg PRN QHS PRN PO CONSTIPATION; Start 05/12/18 at 21:45 Sertraline HCl (Zoloft) 50 mg DAILY PO Last administered on 05/13/18at 08:08; Start 05/13/18 at 09:00; Stop 05/13/18 at 13:38; Status DC Acetaminophen (Tylenol) 650 mg PRN Q4HRS PRN PO PAIN / TEMP Last administered on 05/13/18at 01:37; Start 05/12/18 at 22:30 Ascorbic Acid (Vitamin C) 500 mg DAILY@1700 PO Last administered on 05/17/18 17:24; Start 05/13/18 at 17:00 Carbidopa/Levodopa (Sinemet 25/100) 1.5 tab 0200,0530,1100,1700 PO Last administered on 05/17/18at 17:23; Start 05/13/18 at 02:00 Carbidopa/Levodopa (Sinemet 25/100) 1 tab 0845,1415,2000,2230 PO Last administered on 05/17/18at 19:53; Start 05/12/18 at 23:00 Cyanocobalamin (Vitamin B-12) 250 mcg DAILY@1700 PO Last administered on at 17:23; Start 05/13/18 at 17:00 Hydrocortisone (Proctosol-Hc) 1 mynor PRN QID PRN RC HEMORRHOIDS; Start 05/12/18 at 22:30 Baclofen (Lioresal) 10 mg QID PO Last administered on 05/17/18 19:53; Start at 23:00 Entacapone (Comtan) 200 mg Q4HRS PO ; Start 05/13/18 at 00:00; Stop 05/14/18 at 12:26; Status DC Lisinopril (Prinivil) 20 mg DAILY PO Last administered on 05/17/18at 08:24; Start 05/13/18 at 09:00 Calcium/Vitamin D (Oscal D 500mg/ 200uts) 1 tab BID@0530,0845 PO Last administered on 05/17/18at 08:38; Start 05/13/18 at 05:30 Cefpodoxime Proxetil (Vantin) 200 mg BID PO Last administered on 05/17/18 19: 53; Start 05/12/18 at 23:00; Stop 05/19/18 at 09:01 Fish Oil (Fish Oil) 1,000 mg DAILY@1700 PO Last administered on 05/17/18at 17:15 ; Start 05/13/18 at 17:00 Non-Formulary Medication (Levalbuterol Hcl (Xopenex)) 1.25 mg PRN Q6HRS PRN IH SHORTNESS OF BREATH; Start 05/12/18 at 22:45; Status UNV Levetiracetam (Keppra) 500 mg BID PO Last administered on 05/17/18 19:53; Start 05/12/18 at 23:00 Magnesium Oxide (Magnesium Oxide) 400 mg DAILY PO Last administered on 08:27; Start 05/13/18 at 09:00 Multivitamins/ Calcium (Thera-M Plus) 1 tab DAILY PO Last administered on 08:26; Start 05/13/18 at 09:00 Non-Formulary Medication ([place]-3 Acid Ethyl Esters (Lovaza)) 1 gm DAILY@1700 PO ; Start 05/13/18 at 17:00; Stop 05/13/18 at 17:00; Status DC Pantoprazole Sodium (Protonix) 20 mg BIDWMEALS PO Last administered on 17:29; Start 05/13/18 at 08:00 Potassium Chloride (Klor-Con) 20 meq DAILYWBKFT PO Last administered on 08:24; Start 05/13/18 at 08:00 Ropinirole HCl (Requip) 1.5 mg TID@0200,0530,1100 PO Last administered on 17:15; Start 05/13/18 at 02:00 Ropinirole HCl (Requip) 2 mg DAILY@1700 PO Last administered on 05/17/18 17:15 ; Start 05/13/18 at 17:00 Vitamin E 200 unit DAILY@1700 PO Last administered on 05/16/18 17:29; Start at 17:00 Insulin Human Lispro (HumaLOG) 0-9 UNITS TIDWMEALS SQ Last administered on 05/17 17:27; Start 05/13/18 at 08:00 Dextrose 12.5 gm PRN Q15MIN PRN IV SEE COMMENTS; Start 05/12/18 at 22:45 Albuterol Sulfate (Ventolin) 2.5 mg PRN Q6HRS PRN NEB SHORTNESS OF BREATH; Start 05/12/18 at 23:00 Lactobacillus Rhamnosus (Culturelle) 1 cap BID PO Last administered on 19:53; Start 05/13/18 at 09:00 Clonazepam (KlonoPIN) 0.5 mg TID PO Last administered on 9/16/18at 07:28; Start 05/13/18 at 14:00; Stop 05/14/18 at 12:07; Status DC Oxycodone/ Acetaminophen (Percocet 10/325) 1 tab PRN QID PRN PO PAIN Last administered on 05/14/18at 07:28; Start 05/13/18 at 13:45; Stop 05/14/18 at 17:29 ; Status DC Metformin HCl (Glucophage) 1,000 mg DAILYWBKFT PO Last administered on at 08:24; Start 05/14/18 at 08:00 Metformin HCl (Glucophage) 500 mg DAILYWSUP PO Last administered on 05/17/18at 17:13; Start 05/13/18 at 17:00 Sertraline HCl (Zoloft) 25 mg DAILY PO Last administered on 05/16/18at 08:02; Start 05/14/18 at 09:00; Stop 05/16/18 at 18:02; Status DC Clonazepam (KlonoPIN) 0.5 mg BID PO Last administered on 05/16/18at 20:04; Start 05/14/18 at 21:00; Stop 05/16/18 at 21:01; Status DC Clonazepam (KlonoPIN) 0.25 mg DAILY@1400 PO Last administered on 05/16/18at 14: 42; Start 05/14/18 at 14:00; Stop 05/16/18 at 14:01; Status DC Non-Formulary Medication 1 ea Q4HRS PO Last administered on 05/17/18at 19:52; Start 05/14/18 at 16:00 Clonazepam (KlonoPIN) 0.25 mg Taper BID92 PO Last administered on 05/17/18at 15: 56; Start 05/17/18 at 09:00; Stop 05/29/18 at 08:59 Clonazepam (KlonoPIN) 0.5 mg HS PO Last administered on 05/17/18at 19:56; Start 05/17/18 at 21:00; Stop 05/19/18 at 21:01 Olanzapine (ZyPREXA ZYDIS) 1.25 mg PRN Q2HR PRN PO PSYCHOSIS; Start 05/14/18 at 14:15 Oxycodone/ Acetaminophen (Percocet 10/325) 1 tab QID PRN PO PAIN; Start at 21:00; Stop 05/14/18 at 21:00; Status DC Oxycodone/ Acetaminophen (Percocet 10/325) 1 tab QID PO Last administered on at 19:57; Start 05/14/18 at 21:00 Sertraline HCl (Zoloft) 50 mg DAILY PO Last administered on 05/17/18at 08:38; Start 05/17/18 at 09:00 Active Scripts Active Reported Oxycodone-Acetaminophen 10-325 (Oxycodone Hcl/Acetaminophen) 1 Each Tablet 1 Each PO PRN QID PRN Metformin Hcl 500 Mg Tablet 500 Mg PO DAILYWSUP Metformin Hcl 1,000 Mg Tablet 1,000 Mg PO DAILYWBKFT Clonazepam 0.5 Mg Tablet 0.5 Mg PO TID Zoloft (Sertraline Hcl) 25 Mg Tablet 25 Mg PO DAILY Requip (Ropinirole Hcl) 1 Mg Tablet 2 Mg PO DAILY@1700 Requip (Ropinirole Hcl) 1 Mg Tablet 1.5 Mg PO TID@0200,0530,1100 Keppra (Levetiracetam) 500 Mg Tablet 500 Mg PO BID Zoloft (Sertraline Hcl) 50 Mg Tablet 50 Mg PO DAILY Potassium Chloride 20 Meq Tablet.er 20 Meq PO DAILY Protonix (Pantoprazole Sodium) 20 Mg Tablet.dr 20 Mg PO BIDWMEALS Lovaza ([place]-3 Acid Ethyl Esters) 1 Gm Capsule 1 Gm PO DAILY@1700 Multivitamins (Multivitamin) 1 Each Tablet 1 Each PO DAILY Mag-Oxide (Magnesium Oxide) 400 Mg Tablet 400 Mg PO DAILY Xopenex (Levalbuterol Hcl) 1.25 Mg/3 Ml Vial.neb 1.25 Mg IH PRN Q6HRS PRN [place]-3 Krill Oil 300 Mg Sftg (Krill/[place]-3/Dha/Epa/Lipids) 1 Each Capsule 1 Each PO DAILY@1700 Anusol-Hc (Hydrocortisone) 30 Gm Cream..g. 1 Mynor RC PRN QID PRN Comtan (Entacapone) 200 Mg Tablet 50 Mg PO Q4HRS Vitamin E (Vitamin E Acetate) 200 Unit Capsule 200 Unit PO DAILY@1700 Vitamin B-12 (Cyanocobalamin (Vitamin B-12)) 100 Mcg Tablet 100 Mcg PO DAILY@ 1700 Cefdinir 300 Mg Capsule 300 Mg PO BID 7 Days Sinemet 25-100 Mg Tablet (Carbidopa/Levodopa) 1 Each Tablet 1 Each PO QID Sinemet 25-100 Mg Tablet (Carbidopa/Levodopa) 1 Each Tablet 1 Each PO QID Calcium 600 + Vit D 200 Tablet (Calcium Carbonate/Vitamin D3) 1 Each Tablet 1 Each PO BID@0530,0845 Lotensin (Benazepril Hcl) 20 Mg Tablet 20 Mg PO DAILY Baclofen 10 Mg Tablet 10 Mg PO QID Ascorbic Acid 500 Mg Tablet 500 Mg PO DAILY@1700 Tylenol (Acetaminophen) 325 Mg Tablet 650 Mg PO PRN Q4HRS PRN I have reviewed the current psychotropics carefully including drug interactions. Risk benefit ratio favors no change other than as noted in my dictated progress note. Diagnosis: Problems: (1) Anxiety disorder (2) Parkinson's disease (3) Impulse control disorder (4) Major depressive disorder, recurrent episode (5) Delirium due to general medical condition VIRY MCGRAW MD May 17, 2018 21:12
--- NOTE | 2018-05-17 22:07 | PN ---
DATE: 05/16/2018 PSYCHIATRIC PROGRESS NOTE This late entry 05/16/2018 covers elements not covered in my initial note. SUBJECTIVE: Met with the patient at length in the evening. The patient slept 4 hours previous night. Per nursing report, she pretends as if she cannot do anything including feeding herself or taking care of any ADLs herself some of which she is capable off. She has been obsessive, anxious. REVIEW OF SYSTEMS: Ambulation impaired, in wheelchair. No CV, , pulmonary, eye, ENT system symptoms on review. MENTAL STATUS EXAM: Oriented to herself and situation. Speech has some latency, coherent. Abstraction fair, computation impaired, language function intact, attention span short. Mood and affect remain somewhat labile, anxious, withdrawn. LABORATORY DATA: Reviewed. IMPRESSION: Delirium due to general medical condition, urinary tract infection, major depressive disorder with psychotic features; anxiety disorder, unspecified. PLAN: Given her ongoing mood symptoms, increase Zoloft from 25 mg a day to 50 after she has been on 25 for 3 days. Klonopin is being tapered. Maintain Zyprexa p.r.n. MAN Radha MCGRAW MD DR: JAIMIE/maverick JOB#: [id number] / [id number]
[2018-05-18] MEDS: ENTACAPONE 200 MG PO SCH ×7 (00:02→23:54)
[2018-05-18] MEDS: CARBIDOPA/LEVODOPA 25/100MG TABLET PO SCH ×8 (02:10→22:37)
[2018-05-18 05:51] VITALS: BP 140/72
[2018-05-18] MEDS: rOPINIRole 1 MG TABLET. PO SCH ×2 (06:27→13:11)
[2018-05-18] MEDS: CALCIUM CARB/VIT D3 500/200 TABLET PO SCH ×2 (06:28→09:12)
[2018-05-18] MEDS: LISINOPRIL 20 MG TABLET PO SCH (08:54)
[2018-05-18] MEDS: PANTOPRAZOLE 40 MG TABLET. PO SCH ×2 (08:55→18:45)
[2018-05-18] MEDS: metFORMIN 500 MG TABLET PO SCH ×2 (08:56→18:45)
[2018-05-18] MEDS: POTASSIUM CHLORIDE 20 MEQ TABLET.ER. PO SCH (08:56)
[2018-05-18] MEDS: CEFPODOXIME PROXETIL 100 MG TABLET PO SCH ×2 (08:56→20:39)
[2018-05-18] MEDS: levETIRAcetam 500 MG TABLET PO SCH ×2 (08:57→20:38)
[2018-05-18] MEDS: SERTRALINE 50 MG TABLET. PO SCH (08:57)
[2018-05-18] MEDS: BACLOFEN 10 MG TABLET PO SCH ×4 (08:57→20:38)
[2018-05-18] MEDS: MAGNESIUM OXIDE 400 MG TABLET PO SCH (08:58)
[2018-05-18] MEDS: INSULIN LISPRO 300 UNITS/3 ML INSULN.PEN. SQ SCH ×3 (08:58→18:47)
[2018-05-18] MEDS: LACTOBACILLUS RHAMNOSUS GG 1 CAPSULE. PO SCH ×2 (08:58→20:38)
[2018-05-18] MEDS: MULTIVITAMIN with MINERAL TABLET. PO SCH (08:58)
[2018-05-18] MEDS: clonazePAM 0.5 MG TABLET PO SCH ×4 (09:08→20:41)
[2018-05-18] MEDS: oxyCODONE/APAP 10/325 1 TAB TABLET PO SCH ×4 (09:09→20:40)
[2018-05-18 16:50] VITALS: BP 112/58
[2018-05-18] MEDS: OMEGA-3 FATTY ACIDS/FISH OIL 1,000 MG CAPSULE. PO SCH (18:44)
[2018-05-18] MEDS: rOPINIRole 2 MG TABLET. PO SCH (18:44)
[2018-05-18] MEDS: ASCORBIC ACID 500 MG TABLET PO SCH (18:45)
[2018-05-18] MEDS: CYANOCOBALAMIN (VITAMIN B-12) 1,000 MCG TABLET. PO SCH (18:46)
[2018-05-18] MEDS: VITAMIN E 200 UNIT CAPSULE. PO SCH (18:47)
--- NOTE | 2018-05-18 20:45 | PDOC ---
Exam Note: Junior Note: Please also refer to the separate dictated note~for this date of service dictated separately.~Patient seen individually. Discussed the patient with Nursing staff reviewed the chart.~Reviewed interim history and current functioning. Reviewed vital signs,~Labs/ Radiology~and current medications noted below. Continue current treatment with the changes noted in the dictated addendum note Assessment: Vital Signs: Vital Signs Date Time Temp Pulse Resp B/P (MAP) Pulse Ox O2 Delivery O2 Flow Rate FiO2 05/18/18 16:50 98.0 73 18 112/58 (76) 96 05/17/18 16:53 Room Air I&O Intake and Output 05/18/18 07:00 Intake Total 720 ml Balance 720 ml Intake Oral 720 ml # Voids 1 # Bowel Movements 1 Labs: Laboratory Tests Test 05/17/18 22:53 05/18/18 07:39 05/18/18 11:54 05/18/18 16:37 Glucose (Fingerstick) 138 mg/dL (70-99) H 140 mg/dL (70-99) H 187 mg/dL (70-99) H 157 mg/dL (70-99) H Test 05/18/18 19:06 Glucose (Fingerstick) 177 mg/dL (70-99) H Current Medications: Meds: Current Medications Acetaminophen (Tylenol) 650 mg PRN Q6HRS PRN PO PAIN / TEMP; Start 05/12/18 at 21:45; Stop 05/12/18 at 22:47; Status DC Multi-Ingredient Ointment (Analgesic [place]) 1 mynor PRN QID PRN TP MUSCLE PAIN Last administered on 05/16/18at 02:53; Start 05/12/18 at 21:45 Al Hydroxide/Mg Hydroxide (Mylanta Plus Xs) 15 ml PRN AFTMEALHC PRN PO DYSPEPSIA; Start 05/12/18 at 21:45 Magnesium Hydroxide (Milk Of Magnesia) 2,400 mg PRN QHS PRN PO CONSTIPATION; Start 05/12/18 at 21:45 Sertraline HCl (Zoloft) 50 mg DAILY PO Last administered on 05/13/18at 08:08; Start 05/13/18 at 09:00; Stop 05/13/18 at 13:38; Status DC Acetaminophen (Tylenol) 650 mg PRN Q4HRS PRN PO PAIN / TEMP Last administered on 05/13/18at 01:37; Start 05/12/18 at 22:30 Ascorbic Acid (Vitamin C) 500 mg DAILY@1700 PO Last administered on 05/18/18 18:45; Start 05/13/18 at 17:00 Carbidopa/Levodopa (Sinemet 25/100) 1.5 tab 0200,0530,1100,1700 PO Last administered on 05/18/18 18:45; Start 05/13/18 at 02:00 Carbidopa/Levodopa (Sinemet 25/100) 1 tab 0845,1415,2000,2230 PO Last administered on 05/18/18at 20:38; Start 05/12/18 at 23:00 Cyanocobalamin (Vitamin B-12) 250 mcg DAILY@1700 PO Last administered on at 18:46; Start 05/13/18 at 17:00 Hydrocortisone (Proctosol-Hc) 1 mynor PRN QID PRN RC HEMORRHOIDS; Start 05/12/18 at 22:30 Baclofen (Lioresal) 10 mg QID PO Last administered on 05/18/18at 20:38; Start at 23:00 Entacapone (Comtan) 200 mg Q4HRS PO ; Start 05/13/18 at 00:00; Stop 05/14/18 at 12:26; Status DC Lisinopril (Prinivil) 20 mg DAILY PO Last administered on 05/18/18at 08:54; Start 05/13/18 at 09:00 Calcium/Vitamin D (Oscal D 500mg/ 200uts) 1 tab BID@0530,0845 PO Last administered on 05/18/18at 09:12; Start 05/13/18 at 05:30 Cefpodoxime Proxetil (Vantin) 200 mg BID PO Last administered on 05/18/18 20: 39; Start 05/12/18 at 23:00; Stop 05/19/18 at 09:01 Fish Oil (Fish Oil) 1,000 mg DAILY@1700 PO Last administered on 05/18/18at 18:44 ; Start 05/13/18 at 17:00 Non-Formulary Medication (Levalbuterol Hcl (Xopenex)) 1.25 mg PRN Q6HRS PRN IH SHORTNESS OF BREATH; Start 05/12/18 at 22:45; Status UNV Levetiracetam (Keppra) 500 mg BID PO Last administered on 05/18/18 20:38; Start 05/12/18 at 23:00 Magnesium Oxide (Magnesium Oxide) 400 mg DAILY PO Last administered on 08:58; Start 05/13/18 at 09:00 Multivitamins/ Calcium (Thera-M Plus) 1 tab DAILY PO Last administered on 08:58; Start 05/13/18 at 09:00 Non-Formulary Medication ([place]-3 Acid Ethyl Esters (Lovaza)) 1 gm DAILY@1700 PO ; Start 05/13/18 at 17:00; Stop 05/13/18 at 17:00; Status DC Pantoprazole Sodium (Protonix) 20 mg BIDWMEALS PO Last administered on 18:45; Start 05/13/18 at 08:00 Potassium Chloride (Klor-Con) 20 meq DAILYWBKFT PO Last administered on 08:56; Start 05/13/18 at 08:00 Ropinirole HCl (Requip) 1.5 mg TID@0200,0530,1100 PO Last administered on 13:11; Start 05/13/18 at 02:00 Ropinirole HCl (Requip) 2 mg DAILY@1700 PO Last administered on 05/18/18 18:44 ; Start 05/13/18 at 17:00 Vitamin E 200 unit DAILY@1700 PO Last administered on 05/16/18at 17:29; Start at 17:00 Insulin Human Lispro (HumaLOG) 0-9 UNITS TIDWMEALS SQ Last administered on 05/18 18:47; Start 05/13/18 at 08:00 Dextrose 12.5 gm PRN Q15MIN PRN IV SEE COMMENTS; Start 05/12/18 at 22:45 Albuterol Sulfate (Ventolin) 2.5 mg PRN Q6HRS PRN NEB SHORTNESS OF BREATH; Start 05/12/18 at 23:00 Lactobacillus Rhamnosus (Culturelle) 1 cap BID PO Last administered on 9/20/ 18at 20:38; Start 05/13/18 at 09:00 Clonazepam (KlonoPIN) 0.5 mg TID PO Last administered on 05/14/18at 07:28; Start 05/13/18 at 14:00; Stop 05/14/18 at 12:07; Status DC Oxycodone/ Acetaminophen (Percocet 10/325) 1 tab PRN QID PRN PO PAIN Last administered on 05/14/18at 07:28; Start 05/13/18 at 13:45; Stop 05/14/18 at 17:29 ; Status DC Metformin HCl (Glucophage) 1,000 mg DAILYWBKFT PO Last administered on at 08:56; Start 05/14/18 at 08:00 Metformin HCl (Glucophage) 500 mg DAILYWSUP PO Last administered on 05/18/18at 18:45; Start 05/13/18 at 17:00 Sertraline HCl (Zoloft) 25 mg DAILY PO Last administered on 05/16/18at 08:02; Start 05/14/18 at 09:00; Stop 05/16/18 at 18:02; Status DC Clonazepam (KlonoPIN) 0.5 mg BID PO Last administered on 05/16/18at 20:04; Start 05/14/18 at 21:00; Stop 05/16/18 at 21:01; Status DC Clonazepam (KlonoPIN) 0.25 mg DAILY@1400 PO Last administered on 05/16/18at 14: 42; Start 05/14/18 at 14:00; Stop 05/16/18 at 14:01; Status DC Non-Formulary Medication 1 ea Q4HRS PO Last administered on 05/18/18at 20:37; Start 05/14/18 at 16:00 Clonazepam (KlonoPIN) 0.25 mg Taper BID92 PO Last administered on 05/18/18at 15: 30; Start 05/17/18 at 09:00; Stop 05/29/18 at 08:59 Clonazepam (KlonoPIN) 0.5 mg HS PO Last administered on 05/18/18at 20:41; Start 05/17/18 at 21:00; Stop 05/19/18 at 21:01 Olanzapine (ZyPREXA ZYDIS) 1.25 mg PRN Q2HR PRN PO PSYCHOSIS; Start 05/14/18 at 14:15 Oxycodone/ Acetaminophen (Percocet 10/325) 1 tab QID PRN PO PAIN; Start at 21:00; Stop 05/14/18 at 21:00; Status DC Oxycodone/ Acetaminophen (Percocet 10/325) 1 tab QID PO Last administered on at 20:40; Start 05/14/18 at 21:00 Sertraline HCl (Zoloft) 50 mg DAILY PO Last administered on 05/18/18at 08:57; Start 05/17/18 at 09:00 Active Scripts Active Reported Oxycodone-Acetaminophen 10-325 (Oxycodone Hcl/Acetaminophen) 1 Each Tablet 1 Each PO PRN QID PRN Metformin Hcl 500 Mg Tablet 500 Mg PO DAILYWSUP Metformin Hcl 1,000 Mg Tablet 1,000 Mg PO DAILYWBKFT Clonazepam 0.5 Mg Tablet 0.5 Mg PO TID Zoloft (Sertraline Hcl) 25 Mg Tablet 25 Mg PO DAILY Requip (Ropinirole Hcl) 1 Mg Tablet 2 Mg PO DAILY@1700 Requip (Ropinirole Hcl) 1 Mg Tablet 1.5 Mg PO TID@0200,0530,1100 Keppra (Levetiracetam) 500 Mg Tablet 500 Mg PO BID Zoloft (Sertraline Hcl) 50 Mg Tablet 50 Mg PO DAILY Potassium Chloride 20 Meq Tablet.er 20 Meq PO DAILY Protonix (Pantoprazole Sodium) 20 Mg Tablet.dr 20 Mg PO BIDWMEALS Lovaza ([place]-3 Acid Ethyl Esters) 1 Gm Capsule 1 Gm PO DAILY@1700 Multivitamins (Multivitamin) 1 Each Tablet 1 Each PO DAILY Mag-Oxide (Magnesium Oxide) 400 Mg Tablet 400 Mg PO DAILY Xopenex (Levalbuterol Hcl) 1.25 Mg/3 Ml Vial.neb 1.25 Mg IH PRN Q6HRS PRN [place]-3 Krill Oil 300 Mg Sftg (Krill/[place]-3/Dha/Epa/Lipids) 1 Each Capsule 1 Each PO DAILY@1700 Anusol-Hc (Hydrocortisone) 30 Gm Cream..g. 1 Mynor RC PRN QID PRN Comtan (Entacapone) 200 Mg Tablet 50 Mg PO Q4HRS Vitamin E (Vitamin E Acetate) 200 Unit Capsule 200 Unit PO DAILY@1700 Vitamin B-12 (Cyanocobalamin (Vitamin B-12)) 100 Mcg Tablet 100 Mcg PO DAILY@ 1700 Cefdinir 300 Mg Capsule 300 Mg PO BID 7 Days Sinemet 25-100 Mg Tablet (Carbidopa/Levodopa) 1 Each Tablet 1 Each PO QID Sinemet 25-100 Mg Tablet (Carbidopa/Levodopa) 1 Each Tablet 1 Each PO QID Calcium 600 + Vit D 200 Tablet (Calcium Carbonate/Vitamin D3) 1 Each Tablet 1 Each PO BID@0530,0845 Lotensin (Benazepril Hcl) 20 Mg Tablet 20 Mg PO DAILY Baclofen 10 Mg Tablet 10 Mg PO QID Ascorbic Acid 500 Mg Tablet 500 Mg PO DAILY@1700 Tylenol (Acetaminophen) 325 Mg Tablet 650 Mg PO PRN Q4HRS PRN I have reviewed the current psychotropics carefully including drug interactions. Risk benefit ratio favors no change other than as noted in my dictated progress note. Diagnosis: Problems: (1) Anxiety disorder (2) Parkinson's disease (3) Impulse control disorder (4) Major depressive disorder, recurrent episode (5) Delirium due to general medical condition VIRY MCGRAW MD May 18, 2018 20:45
[2018-05-19] MEDS: CARBIDOPA/LEVODOPA 25/100MG TABLET PO SCH ×8 (02:03→22:31)
[2018-05-19] MEDS: rOPINIRole 1 MG TABLET. PO SCH ×3 (02:03→08:05)
[2018-05-19] MEDS: ENTACAPONE 200 MG PO SCH ×6 (04:01→23:47)
[2018-05-19] MEDS: CALCIUM CARB/VIT D3 500/200 TABLET PO SCH ×2 (04:58→08:06)
[2018-05-19 06:22] VITALS: BP 132/61
[2018-05-19] MEDS: INSULIN LISPRO 300 UNITS/3 ML INSULN.PEN. SQ SCH ×3 (08:00→17:00)
[2018-05-19] MEDS: MAGNESIUM OXIDE 400 MG TABLET PO SCH (08:04)
[2018-05-19] MEDS: BACLOFEN 10 MG TABLET PO SCH ×4 (08:04→20:03)
[2018-05-19] MEDS: levETIRAcetam 500 MG TABLET PO SCH ×2 (08:04→20:03)
[2018-05-19] MEDS: LACTOBACILLUS RHAMNOSUS GG 1 CAPSULE. PO SCH ×2 (08:05→20:03)
[2018-05-19] MEDS: PANTOPRAZOLE 40 MG TABLET. PO SCH ×2 (08:05→18:23)
[2018-05-19] MEDS: LISINOPRIL 20 MG TABLET PO SCH (08:05)
[2018-05-19] MEDS: POTASSIUM CHLORIDE 20 MEQ TABLET.ER. PO SCH (08:05)
[2018-05-19] MEDS: MULTIVITAMIN with MINERAL TABLET. PO SCH (08:05)
[2018-05-19] MEDS: SERTRALINE 50 MG TABLET. PO SCH (08:06)
[2018-05-19] MEDS: metFORMIN 500 MG TABLET PO SCH ×2 (08:06→18:23)
[2018-05-19] MEDS: CEFPODOXIME PROXETIL 100 MG TABLET PO SCH (08:06)
[2018-05-19] MEDS: oxyCODONE/APAP 10/325 1 TAB TABLET PO SCH ×4 (08:10→20:04)
[2018-05-19] MEDS: clonazePAM 0.5 MG TABLET PO SCH ×3 (08:11→20:03)
[2018-05-19 16:49] VITALS: BP 138/80
[2018-05-19] MEDS: VITAMIN E 200 UNIT CAPSULE. PO SCH (17:00)
[2018-05-19] MEDS: CYANOCOBALAMIN (VITAMIN B-12) 1,000 MCG TABLET. PO SCH (17:00)
[2018-05-19] MEDS: rOPINIRole 2 MG TABLET. PO SCH (18:24)
[2018-05-19] MEDS: OMEGA-3 FATTY ACIDS/FISH OIL 1,000 MG CAPSULE. PO SCH (18:24)
[2018-05-19] MEDS: ASCORBIC ACID 500 MG TABLET PO SCH (18:24)
--- NOTE | 2018-05-19 20:50 | PDOC ---
Exam Note: Junior Note: Please also refer to the separate dictated note~for this date of service dictated separately.~Patient seen individually. Discussed the patient with Nursing staff reviewed the chart.~Reviewed interim history and current functioning. Reviewed vital signs,~Labs/ Radiology~and current medications noted below. Continue current treatment with the changes noted in the dictated addendum note Assessment: Vital Signs: Vital Signs Date Time Temp Pulse Resp B/P (MAP) Pulse Ox O2 Delivery O2 Flow Rate FiO2 05/19/18 16:49 97.3 83 16 138/80 (99) 95 05/17/18 16:53 Room Air I&O Intake and Output 05/19/18 07:00 Intake Total 720 ml Balance 720 ml Intake Oral 720 ml # Voids 1 # Bowel Movements 1 Labs: Laboratory Tests Test 05/19/18 07:26 05/19/18 11:47 05/19/18 16:59 05/19/18 19:34 Glucose (Fingerstick) 139 mg/dL (70-99) H 135 mg/dL (70-99) H 105 mg/dL (70-99) H 193 mg/dL (70-99) H Current Medications: Meds: Current Medications Acetaminophen (Tylenol) 650 mg PRN Q6HRS PRN PO PAIN / TEMP; Start 05/12/18 at 21:45; Stop 05/12/18 at 22:47; Status DC Multi-Ingredient Ointment (Analgesic [place]) 1 mynor PRN QID PRN TP MUSCLE PAIN Last administered on 05/16/18at 02:53; Start 05/12/18 at 21:45 Al Hydroxide/Mg Hydroxide (Mylanta Plus Xs) 15 ml PRN AFTMEALHC PRN PO DYSPEPSIA; Start 05/12/18 at 21:45 Magnesium Hydroxide (Milk Of Magnesia) 2,400 mg PRN QHS PRN PO CONSTIPATION; Start 05/12/18 at 21:45 Sertraline HCl (Zoloft) 50 mg DAILY PO Last administered on 05/13/18at 08:08; Start 05/13/18 at 09:00; Stop 05/13/18 at 13:38; Status DC Acetaminophen (Tylenol) 650 mg PRN Q4HRS PRN PO PAIN / TEMP Last administered on 05/13/18at 01:37; Start 05/12/18 at 22:30 Ascorbic Acid (Vitamin C) 500 mg DAILY@1700 PO Last administered on 05/19/18at 18:24; Start 05/13/18 at 17:00 Carbidopa/Levodopa (Sinemet 25/100) 1.5 tab 0200,0530,1100,1700 PO Last administered on 05/19/18at 18:24; Start 05/13/18 at 02:00 Carbidopa/Levodopa (Sinemet 25/100) 1 tab 0845,1415,2000,2230 PO Last administered on 05/19/18at 20:02; Start 05/12/18 at 23:00 Cyanocobalamin (Vitamin B-12) 250 mcg DAILY@1700 PO Last administered on at 17:00; Start 05/13/18 at 17:00 Hydrocortisone (Proctosol-Hc) 1 mynor PRN QID PRN RC HEMORRHOIDS; Start 05/12/18 at 22:30 Baclofen (Lioresal) 10 mg QID PO Last administered on 05/19/18at 20:03; Start at 23:00 Entacapone (Comtan) 200 mg Q4HRS PO ; Start 05/13/18 at 00:00; Stop 05/14/18 at 12:26; Status DC Lisinopril (Prinivil) 20 mg DAILY PO Last administered on 05/19/18at 08:05; Start 05/13/18 at 09:00 Calcium/Vitamin D (Oscal D 500mg/ 200uts) 1 tab BID@0530,0845 PO Last administered on 05/19/18at 08:06; Start 05/13/18 at 05:30 Cefpodoxime Proxetil (Vantin) 200 mg BID PO Last administered on 05/19/18at 08: 06; Start 05/12/18 at 23:00; Stop 05/19/18 at 09:01; Status DC Fish Oil (Fish Oil) 1,000 mg DAILY@1700 PO Last administered on 05/19/18at 18:24 ; Start 05/13/18 at 17:00 Non-Formulary Medication (Levalbuterol Hcl (Xopenex)) 1.25 mg PRN Q6HRS PRN IH SHORTNESS OF BREATH; Start 05/12/18 at 22:45; Status UNV Levetiracetam (Keppra) 500 mg BID PO Last administered on 05/19/18 20:03; Start 05/12/18 at 23:00 Magnesium Oxide (Magnesium Oxide) 400 mg DAILY PO Last administered on at 08:04; Start 05/13/18 at 09:00 Multivitamins/ Calcium (Thera-M Plus) 1 tab DAILY PO Last administered on at 08:05; Start 05/13/18 at 09:00 Non-Formulary Medication ([place]-3 Acid Ethyl Esters (Lovaza)) 1 gm DAILY@1700 PO ; Start 05/13/18 at 17:00; Stop 05/13/18 at 17:00; Status DC Pantoprazole Sodium (Protonix) 20 mg BIDWMEALS PO Last administered on 18:23; Start 05/13/18 at 08:00 Potassium Chloride (Klor-Con) 20 meq DAILYWBKFT PO Last administered on at 08:05; Start 05/13/18 at 08:00 Ropinirole HCl (Requip) 1.5 mg TID@0200,0530,1100 PO Last administered on 08:05; Start 05/13/18 at 02:00 Ropinirole HCl (Requip) 2 mg DAILY@1700 PO Last administered on 05/19/18at 18:24 ; Start 05/13/18 at 17:00 Vitamin E 200 unit DAILY@1700 PO Last administered on 05/19/18at 17:00; Start at 17:00 Insulin Human Lispro (HumaLOG) 0-9 UNITS TIDWMEALS SQ Last administered on 05/18at 18:47; Start 05/13/18 at 08:00 Dextrose 12.5 gm PRN Q15MIN PRN IV SEE COMMENTS; Start 05/12/18 at 22:45 Albuterol Sulfate (Ventolin) 2.5 mg PRN Q6HRS PRN NEB SHORTNESS OF BREATH; Start 05/12/18 at 23:00 Lactobacillus Rhamnosus (Culturelle) 1 cap BID PO Last administered on at 20:03; Start 05/13/18 at 09:00 Clonazepam (KlonoPIN) 0.5 mg TID PO Last administered on 05/14/18at 07:28; Start 05/13/18 at 14:00; Stop 05/14/18 at 12:07; Status DC Oxycodone/ Acetaminophen (Percocet 10/325) 1 tab PRN QID PRN PO PAIN Last administered on 05/14/18at 07:28; Start 05/13/18 at 13:45; Stop 05/14/18 at 17:29 ; Status DC Metformin HCl (Glucophage) 1,000 mg DAILYWBKFT PO Last administered on at 08:06; Start 05/14/18 at 08:00 Metformin HCl (Glucophage) 500 mg DAILYWSUP PO Last administered on 05/19/18at 18:23; Start 05/13/18 at 17:00 Sertraline HCl (Zoloft) 25 mg DAILY PO Last administered on 05/16/18at 08:02; Start 05/14/18 at 09:00; Stop 05/16/18 at 18:02; Status DC Clonazepam (KlonoPIN) 0.5 mg BID PO Last administered on 05/16/18at 20:04; Start 05/14/18 at 21:00; Stop 05/16/18 at 21:01; Status DC Clonazepam (KlonoPIN) 0.25 mg DAILY@1400 PO Last administered on 05/16/18at 14: 42; Start 05/14/18 at 14:00; Stop 05/16/18 at 14:01; Status DC Non-Formulary Medication 1 ea Q4HRS PO Last administered on 05/19/18at 20:02; Start 05/14/18 at 16:00 Clonazepam (KlonoPIN) 0.25 mg Taper BID92 PO Last administered on 05/19/18at 14: 02; Start 05/17/18 at 09:00; Stop 05/29/18 at 08:59 Clonazepam (KlonoPIN) 0.5 mg HS PO Last administered on 05/19/18at 20:03; Start 05/17/18 at 21:00; Stop 05/19/18 at 21:01 Olanzapine (ZyPREXA ZYDIS) 1.25 mg PRN Q2HR PRN PO PSYCHOSIS; Start 05/14/18 at 14:15 Oxycodone/ Acetaminophen (Percocet 10/325) 1 tab QID PRN PO PAIN; Start at 21:00; Stop 05/14/18 at 21:00; Status DC Oxycodone/ Acetaminophen (Percocet 10/325) 1 tab QID PO Last administered on at 20:04; Start 05/14/18 at 21:00 Sertraline HCl (Zoloft) 50 mg DAILY PO Last administered on 05/19/18at 08:06; Start 05/17/18 at 09:00 Active Scripts Active Reported Oxycodone-Acetaminophen 10-325 (Oxycodone Hcl/Acetaminophen) 1 Each Tablet 1 Each PO PRN QID PRN Metformin Hcl 500 Mg Tablet 500 Mg PO DAILYWSUP Metformin Hcl 1,000 Mg Tablet 1,000 Mg PO DAILYWBKFT Clonazepam 0.5 Mg Tablet 0.5 Mg PO TID Zoloft (Sertraline Hcl) 25 Mg Tablet 25 Mg PO DAILY Requip (Ropinirole Hcl) 1 Mg Tablet 2 Mg PO DAILY@1700 Requip (Ropinirole Hcl) 1 Mg Tablet 1.5 Mg PO TID@0200,0530,1100 Keppra (Levetiracetam) 500 Mg Tablet 500 Mg PO BID Zoloft (Sertraline Hcl) 50 Mg Tablet 50 Mg PO DAILY Potassium Chloride 20 Meq Tablet.er 20 Meq PO DAILY Protonix (Pantoprazole Sodium) 20 Mg Tablet.dr 20 Mg PO BIDWMEALS Lovaza ([place]-3 Acid Ethyl Esters) 1 Gm Capsule 1 Gm PO DAILY@1700 Multivitamins (Multivitamin) 1 Each Tablet 1 Each PO DAILY Mag-Oxide (Magnesium Oxide) 400 Mg Tablet 400 Mg PO DAILY Xopenex (Levalbuterol Hcl) 1.25 Mg/3 Ml Vial.neb 1.25 Mg IH PRN Q6HRS PRN [place]-3 Krill Oil 300 Mg Sftg (Krill/[place]-3/Dha/Epa/Lipids) 1 Each Capsule 1 Each PO DAILY@1700 Anusol-Hc (Hydrocortisone) 30 Gm Cream..g. 1 Mynor RC PRN QID PRN Comtan (Entacapone) 200 Mg Tablet 50 Mg PO Q4HRS Vitamin E (Vitamin E Acetate) 200 Unit Capsule 200 Unit PO DAILY@1700 Vitamin B-12 (Cyanocobalamin (Vitamin B-12)) 100 Mcg Tablet 100 Mcg PO DAILY@ 1700 Cefdinir 300 Mg Capsule 300 Mg PO BID 7 Days Sinemet 25-100 Mg Tablet (Carbidopa/Levodopa) 1 Each Tablet 1 Each PO QID Sinemet 25-100 Mg Tablet (Carbidopa/Levodopa) 1 Each Tablet 1 Each PO QID Calcium 600 + Vit D 200 Tablet (Calcium Carbonate/Vitamin D3) 1 Each Tablet 1 Each PO BID@0530,0845 Lotensin (Benazepril Hcl) 20 Mg Tablet 20 Mg PO DAILY Baclofen 10 Mg Tablet 10 Mg PO QID Ascorbic Acid 500 Mg Tablet 500 Mg PO DAILY@1700 Tylenol (Acetaminophen) 325 Mg Tablet 650 Mg PO PRN Q4HRS PRN I have reviewed the current psychotropics carefully including drug interactions. Risk benefit ratio favors no change other than as noted in my dictated progress note. Diagnosis: Problems: (1) Anxiety disorder (2) Parkinson's disease (3) Impulse control disorder (4) Major depressive disorder, recurrent episode (5) Delirium due to general medical condition VIRY MCGRAW MD May 19, 2018 20:50
[2018-05-19] MEDS ORDERED: NYSTATIN TOPICAL POWDER 15GM BOTTLE. TP ONE (22:19)
[2018-05-19] MEDS ORDERED: NYSTATIN TOPICAL POWDER 15GM BOTTLE. TP PRN ×2 (22:30)
[2018-05-19 23:02] LABS: BACTERIA,URINE 0 /HPF (0-FEW); BILIRUBIN,URINE NEG (NEG); CLARITY,URINE HAZY; COLOR,URINE AMBER; GLUCOSE,URINE NEG (NEG); NITRITE,URINE NEG (NEG); RBC,URINE RARE /HPF (0-2); SQUAMOUS EPITHELIAL CELL,UR MANY /LPF; UROBILINOGEN,URINE 0.2 mg/dL (0.2 mg/dL)
--- NOTE | 2018-05-19 23:37 | PN ---
DATE: 05/17/2018 This is a late entry for 05/17/2018 covers elements not covered in my initial note. SUBJECTIVE: I met with the patient evening of 05/17/2018. The patient slept 6-1/2 hours previous evening. The patient has been pleasant, had lunch with her , fed herself a little more, awake, alert. She does get confused intermittently even during the day. REVIEW OF SYSTEMS: Ambulation impaired, in wheelchair. No CV, , pulmonary, eye, ENT system symptoms on review. MENTAL STATUS EXAM: Oriented to herself and situation. Speech has some latency, low in volume, coherent. Abstraction fair, computation unable to do serial sevens even one step. No active psychotic symptoms, suicidal or homicidal ideation. Attention span short. Language function intact. LABORATORY DATA: Reviewed. IMPRESSION: Unchanged from initial note. PLAN: No change from initial note for now. VIRY MCGRAW MD DR: JAIMIE/maverick JOB#: [id number] / [id number]
--- NOTE | 2018-05-19 23:39 | PN ---
DATE: 05/18/2018 This is a late entry for 05/18/2018 covers elements not covered in my initial note. SUBJECTIVE: I met with the patient in the evening and staffed at a treatment team meeting with the entire team in the morning and the patient's , Shoaib, attended the morning conference at length with the entire staff as did her daughter. I also met with the at some length in the evening. The patient is compliant with her medications. Appetite 55%. Slept 4-1/2 hours average, 5-1/2 hours previous night. REVIEW OF SYSTEMS: Ambulation impaired, in wheelchair, complains of neck pain, ankle pain. No CV, , pulmonary, eye system symptoms on review. MENTAL STATUS EXAM: Oriented to herself and situation. Speech moderate latency, often responses monosyllabic. Abstraction fair, computation impaired, language function intact. Mood and affect still somewhat withdrawn, at times, but no active psychotic symptoms, suicidal or homicidal ideation. Appears somewhat dysphoric. She is tolerating the taper of Klonopin. LABORATORY DATA: Reviewed. IMPRESSION: Unchanged from initial note. PLAN: No change from initial note. described how she had a seizure episode prior to her admission to [facility] and was started on Keppra. We will consult Dr. Ponce for clarification. Taper the Klonopin. Maintain Zoloft. Adjust further as clinically indicated. VIRY MCGRAW MD DR: JAIMIE/maverick JOB#: [id number] / [id number]
[2018-05-20] MEDS: rOPINIRole 1 MG TABLET. PO SCH ×3 (03:38→11:00)
[2018-05-20] MEDS: CARBIDOPA/LEVODOPA 25/100MG TABLET PO SCH ×8 (03:45→22:46)
[2018-05-20] MEDS: ENTACAPONE 200 MG PO SCH ×6 (03:45→23:50)
[2018-05-20] MEDS: CALCIUM CARB/VIT D3 500/200 TABLET PO SCH ×2 (05:22→08:10)
[2018-05-20 06:46] VITALS: BP 140/79
[2018-05-20 07:01] LABS: BASO % 1 % (0-3); EOS # 0.3 x10^3/uL (0.0-0.7); EOS % 6 % (0-3); HEMATOCRIT 30.4 % (36.0-47.0); HEMOGLOBIN 10.1 g/dL (12.0-15.5); LYMPH # 1.4 x10^3/uL (1.0-4.8); LYMPH % 28 % (24-48); MEAN CORPUSCULAR HEMOGLOBIN 28 pg (25-35); MEAN CORPUSCULAR HGB CONC 33 g/dL (31-37); MEAN CORPUSCULAR VOLUME 83 fL (79-100); MONO # 0.4 x10^3/uL (0.0-1.1); MONO % 8 % (0-9); NEUT # 2.7 x10^3uL (1.8-7.7); NEUT % 57 % (31-73); PLATELET COUNT 282 x10^3/uL (140-400); RED BLOOD COUNT 3.66 x10^6/uL (3.50-5.40); RED CELL DISTRIBUTION WIDTH 17.2 % (11.5-14.5); WHITE BLOOD COUNT 4.8 x10^3/uL (4.0-11.0)
[2018-05-20 07:11] LABS: ALBUMIN 2.7 g/dL (3.4-5.0); ALBUMIN/GLOBULIN RATIO 0.9 (1.0-1.7); CALCIUM 9.3 mg/dL (8.5-10.1); CREATININE 0.7 mg/dL (0.6-1.0); GFR 82.3; POTASSIUM 3.8 mmol/L (3.5-5.1); TOTAL BILIRUBIN 0.4 mg/dL (0.2-1.0); TOTAL PROTEIN 5.6 g/dL (6.4-8.2)
[2018-05-20] MEDS: INSULIN LISPRO 300 UNITS/3 ML INSULN.PEN. SQ SCH ×3 (08:00→17:00)
[2018-05-20] MEDS: LACTOBACILLUS RHAMNOSUS GG 1 CAPSULE. PO SCH ×2 (08:03→20:44)
[2018-05-20] MEDS: PANTOPRAZOLE 40 MG TABLET. PO SCH ×2 (08:04→17:53)
[2018-05-20] MEDS: BACLOFEN 10 MG TABLET PO SCH ×4 (08:04→20:45)
[2018-05-20] MEDS: MULTIVITAMIN with MINERAL TABLET. PO SCH (08:04)
[2018-05-20] MEDS: POTASSIUM CHLORIDE 20 MEQ TABLET.ER. PO SCH (08:04)
[2018-05-20] MEDS: MAGNESIUM OXIDE 400 MG TABLET PO SCH (08:04)
[2018-05-20] MEDS: metFORMIN 500 MG TABLET PO SCH ×2 (08:04→17:51)
[2018-05-20] MEDS: LISINOPRIL 20 MG TABLET PO SCH (08:07)
[2018-05-20] MEDS: oxyCODONE/APAP 10/325 1 TAB TABLET PO SCH ×4 (08:10→20:45)
[2018-05-20] MEDS: SERTRALINE 50 MG TABLET. PO SCH (08:10)
[2018-05-20] MEDS: levETIRAcetam 500 MG TABLET PO SCH ×2 (08:10→20:44)
[2018-05-20] MEDS: clonazePAM 0.5 MG TABLET PO SCH ×3 (08:10→20:48)
[2018-05-20 16:29] VITALS: BP 130/74
[2018-05-20] MEDS: OMEGA-3 FATTY ACIDS/FISH OIL 1,000 MG CAPSULE. PO SCH (17:51)
[2018-05-20] MEDS: VITAMIN E 200 UNIT CAPSULE. PO SCH (17:52)
[2018-05-20] MEDS: CYANOCOBALAMIN (VITAMIN B-12) 1,000 MCG TABLET. PO SCH (17:52)
[2018-05-20] MEDS: rOPINIRole 2 MG TABLET. PO SCH (17:52)
[2018-05-20] MEDS: ASCORBIC ACID 500 MG TABLET PO SCH (17:52)
--- NOTE | 2018-05-20 23:02 | PDOC ---
Exam Note: Junior Note: Please also refer to the separate dictated note~for this date of service dictated separately.~Patient seen individually. Discussed the patient with Nursing staff reviewed the chart.~Reviewed interim history and current functioning. Reviewed vital signs,~Labs/ Radiology~and current medications noted below. Continue current treatment with the changes noted in the dictated addendum note Assessment: Vital Signs: Vital Signs Date Time Temp Pulse Resp B/P (MAP) Pulse Ox O2 Delivery O2 Flow Rate FiO2 05/20/18 16:29 97.4 73 20 130/74 (92) 96 05/17/18 16:53 Room Air I&O Intake and Output 05/20/18 07:00 Intake Total 840 ml Balance 840 ml Intake Oral 840 ml # Bowel Movements 1 Labs: Laboratory Tests Test 05/20/18 06:35 05/20/18 07:22 05/20/18 12:07 05/20/18 16:37 White Blood Count 4.8 x10^3/uL (4.0-11.0) Red Blood Count 3.66 x10^6/uL (3.50-5.40) Hemoglobin 10.1 g/dL (12.0-15.5) L Hematocrit 30.4 % (36.0-47.0) L Mean Corpuscular Volume 83 fL (79-100) Mean Corpuscular Hemoglobin 28 pg (25-35) Mean Corpuscular Hemoglobin Concent 33 g/dL (31-37) Red Cell Distribution Width 17.2 % (11.5-14.5) H Platelet Count 282 x10^3/uL (140-400) Neutrophils (%) (Auto) 57 % (31-73) Lymphocytes (%) (Auto) 28 % (24-48) Monocytes (%) (Auto) 8 % (0-9) Eosinophils (%) (Auto) 6 % (0-3) H Basophils (%) (Auto) 1 % (0-3) Neutrophils # (Auto) 2.7 x10^3uL (1.8-7.7) Lymphocytes # (Auto) 1.4 x10^3/uL (1.0-4.8) Monocytes # (Auto) 0.4 x10^3/uL (0.0-1.1) Eosinophils # (Auto) 0.3 x10^3/uL (0.0-0.7) Basophils # (Auto) 0.0 x10^3/uL (0.0-0.2) Sodium Level 143 mmol/L (136-145) Potassium Level 3.8 mmol/L (3.5-5.1) Chloride Level 107 mmol/L (98-107) Carbon Dioxide Level 35 mmol/L (21-32) H Anion Gap 1 (6-14) L Blood Urea Nitrogen 12 mg/dL (7-20) Creatinine 0.7 mg/dL (0.6-1.0) Estimated GFR (Cockcroft-Gault) 82.3 BUN/Creatinine Ratio 17 (6-20) Glucose Level 114 mg/dL (70-99) H Calcium Level 9.3 mg/dL (8.5-10.1) Total Bilirubin 0.4 mg/dL (0.2-1.0) Aspartate Amino Transferase (AST) 14 U/L (15-37) L Alanine Aminotransferase (ALT) 8 U/L (14-59) L Alkaline Phosphatase 68 U/L (46-116) Total Protein 5.6 g/dL (6.4-8.2) L Albumin 2.7 g/dL (3.4-5.0) L Albumin/Globulin Ratio 0.9 (1.0-1.7) L Glucose (Fingerstick) 127 mg/dL (70-99) H 142 mg/dL (70-99) H 135 mg/dL (70-99) H Test 05/20/18 19:21 Glucose (Fingerstick) 120 mg/dL (70-99) H Current Medications: Meds: Current Medications Acetaminophen (Tylenol) 650 mg PRN Q6HRS PRN PO PAIN / TEMP; Start 05/12/18 at 21:45; Stop 05/12/18 at 22:47; Status DC Multi-Ingredient Ointment (Analgesic [place]) 1 mynor PRN QID PRN TP MUSCLE PAIN Last administered on 05/16/18at 02:53; Start 05/12/18 at 21:45 Al Hydroxide/Mg Hydroxide (Mylanta Plus Xs) 15 ml PRN AFTMEALHC PRN PO DYSPEPSIA; Start 05/12/18 at 21:45 Magnesium Hydroxide (Milk Of Magnesia) 2,400 mg PRN QHS PRN PO CONSTIPATION; Start 05/12/18 at 21:45 Sertraline HCl (Zoloft) 50 mg DAILY PO Last administered on 05/13/18at 08:08; Start 05/13/18 at 09:00; Stop 05/13/18 at 13:38; Status DC Acetaminophen (Tylenol) 650 mg PRN Q4HRS PRN PO PAIN / TEMP Last administered on 05/13/18at 01:37; Start 05/12/18 at 22:30 Ascorbic Acid (Vitamin C) 500 mg DAILY@1700 PO Last administered on 05/20/18at 17:52; Start 05/13/18 at 17:00 Carbidopa/Levodopa (Sinemet 25/100) 1.5 tab 0200,0530,1100,1700 PO Last administered on 05/20/18 17:52; Start 05/13/18 at 02:00 Carbidopa/Levodopa (Sinemet 25/100) 1 tab 0845,1415,2000,2230 PO Last administered on 05/20/18at 22:46; Start 05/12/18 at 23:00 Cyanocobalamin (Vitamin B-12) 250 mcg DAILY@1700 PO Last administered on at 17:52; Start 05/13/18 at 17:00 Hydrocortisone (Proctosol-Hc) 1 mynor PRN QID PRN RC HEMORRHOIDS; Start 05/12/18 at 22:30 Baclofen (Lioresal) 10 mg QID PO Last administered on 05/20/18at 20:45; Start at 23:00 Entacapone (Comtan) 200 mg Q4HRS PO ; Start 05/13/18 at 00:00; Stop 05/14/18 at 12:26; Status DC Lisinopril (Prinivil) 20 mg DAILY PO Last administered on 05/20/18at 08:07; Start 05/13/18 at 09:00 Calcium/Vitamin D (Oscal D 500mg/ 200uts) 1 tab BID@0530,0845 PO Last administered on 05/20/18at 08:10; Start 05/13/18 at 05:30 Cefpodoxime Proxetil (Vantin) 200 mg BID PO Last administered on 05/19/18at 08: 06; Start 05/12/18 at 23:00; Stop 05/19/18 at 09:01; Status DC Fish Oil (Fish Oil) 1,000 mg DAILY@1700 PO Last administered on 05/20/18 17:51 ; Start 05/13/18 at 17:00 Non-Formulary Medication (Levalbuterol Hcl (Xopenex)) 1.25 mg PRN Q6HRS PRN IH SHORTNESS OF BREATH; Start 05/12/18 at 22:45; Status UNV Levetiracetam (Keppra) 500 mg BID PO Last administered on 05/20/18at 20:44; Start 05/12/18 at 23:00 Magnesium Oxide (Magnesium Oxide) 400 mg DAILY PO Last administered on 08:04; Start 05/13/18 at 09:00 Multivitamins/ Calcium (Thera-M Plus) 1 tab DAILY PO Last administered on at 08:04; Start 05/13/18 at 09:00 Non-Formulary Medication (Avalon-3 Acid Ethyl Esters (Lovaza)) 1 gm DAILY@1700 PO ; Start 05/13/18 at 17:00; Stop 05/13/18 at 17:00; Status DC Pantoprazole Sodium (Protonix) 20 mg BIDWMEALS PO Last administered on at 17:53; Start 05/13/18 at 08:00 Potassium Chloride (Klor-Con) 20 meq DAILYWBKFT PO Last administered on at 08:04; Start 05/13/18 at 08:00 Ropinirole HCl (Requip) 1.5 mg TID@0200,0530,1100 PO Last administered on at 11:00; Start 05/13/18 at 02:00 Ropinirole HCl (Requip) 2 mg DAILY@1700 PO Last administered on 05/20/18 17:52 ; Start 05/13/18 at 17:00 Vitamin E 200 unit DAILY@1700 PO Last administered on 05/20/18at 17:52; Start at 17:00 Insulin Human Lispro (HumaLOG) 0-9 UNITS TIDWMEALS SQ Last administered on 05/18at 18:47; Start 05/13/18 at 08:00 Dextrose 12.5 gm PRN Q15MIN PRN IV SEE COMMENTS; Start 05/12/18 at 22:45 Albuterol Sulfate (Ventolin) 2.5 mg PRN Q6HRS PRN NEB SHORTNESS OF BREATH; Start 05/12/18 at 23:00 Lactobacillus Rhamnosus (Culturelle) 1 cap BID PO Last administered on at 20:44; Start 05/13/18 at 09:00 Clonazepam (KlonoPIN) 0.5 mg TID PO Last administered on 05/14/18at 07:28; Start 05/13/18 at 14:00; Stop 05/14/18 at 12:07; Status DC Oxycodone/ Acetaminophen (Percocet 10/325) 1 tab PRN QID PRN PO PAIN Last administered on 05/14/18at 07:28; Start 05/13/18 at 13:45; Stop 05/14/18 at 17:29 ; Status DC Metformin HCl (Glucophage) 1,000 mg DAILYWBKFT PO Last administered on at 08:04; Start 05/14/18 at 08:00 Metformin HCl (Glucophage) 500 mg DAILYWSUP PO Last administered on 05/20/18at 17:51; Start 05/13/18 at 17:00 Sertraline HCl (Zoloft) 25 mg DAILY PO Last administered on 05/16/18at 08:02; Start 05/14/18 at 09:00; Stop 05/16/18 at 18:02; Status DC Clonazepam (KlonoPIN) 0.5 mg BID PO Last administered on 05/16/18at 20:04; Start 05/14/18 at 21:00; Stop 05/16/18 at 21:01; Status DC Clonazepam (KlonoPIN) 0.25 mg DAILY@1400 PO Last administered on 05/16/18at 14: 42; Start 05/14/18 at 14:00; Stop 05/16/18 at 14:01; Status DC Non-Formulary Medication 1 ea Q4HRS PO Last administered on 05/20/18at 20:41; Start 05/14/18 at 16:00 Clonazepam (KlonoPIN) 0.25 mg Taper TID PO Last administered on 05/20/18at 20:48 ; Start 05/17/18 at 09:00; Stop 05/29/18 at 08:59 Clonazepam (KlonoPIN) 0.5 mg HS PO Last administered on 05/19/18at 20:03; Start 05/17/18 at 21:00; Stop 05/19/18 at 21:01; Status DC Olanzapine (ZyPREXA ZYDIS) 1.25 mg PRN Q2HR PRN PO PSYCHOSIS; Start 05/14/18 at 14:15 Oxycodone/ Acetaminophen (Percocet 10/325) 1 tab QID PRN PO PAIN; Start at 21:00; Stop 05/14/18 at 21:00; Status DC Oxycodone/ Acetaminophen (Percocet 10/325) 1 tab QID PO Last administered on at 20:45; Start 05/14/18 at 21:00 Sertraline HCl (Zoloft) 50 mg DAILY PO Last administered on 05/20/18at 08:10; Start 05/17/18 at 09:00 Nystatin (Nystop) 15 mynor STK-MED ONCE TP ; Start 05/19/18 at 22:19; Stop at 22:25; Status DC Nystatin (Nystop) 1 mynor PRN BID PRN TP SKIN BREAKDOWN; Start 05/19/18 at 22:30 Nystatin (Nystop) 1 mynor PRN BID PRN TP SKIN PROTECTION; Start 05/19/18 at 22:30 ; Status UNV Active Scripts Active Reported Oxycodone-Acetaminophen 10-325 (Oxycodone Hcl/Acetaminophen) 1 Each Tablet 1 Each PO PRN QID PRN Metformin Hcl 500 Mg Tablet 500 Mg PO DAILYWSUP Metformin Hcl 1,000 Mg Tablet 1,000 Mg PO DAILYWBKFT Clonazepam 0.5 Mg Tablet 0.5 Mg PO TID Zoloft (Sertraline Hcl) 25 Mg Tablet 25 Mg PO DAILY Requip (Ropinirole Hcl) 1 Mg Tablet 2 Mg PO DAILY@1700 Requip (Ropinirole Hcl) 1 Mg Tablet 1.5 Mg PO TID@0200,0530,1100 Keppra (Levetiracetam) 500 Mg Tablet 500 Mg PO BID Zoloft (Sertraline Hcl) 50 Mg Tablet 50 Mg PO DAILY Potassium Chloride 20 Meq Tablet.er 20 Meq PO DAILY Protonix (Pantoprazole Sodium) 20 Mg Tablet.dr 20 Mg PO BIDWMEALS Lovaza (Avalon-3 Acid Ethyl Esters) 1 Gm Capsule 1 Gm PO DAILY@1700 Multivitamins (Multivitamin) 1 Each Tablet 1 Each PO DAILY Mag-Oxide (Magnesium Oxide) 400 Mg Tablet 400 Mg PO DAILY Xopenex (Levalbuterol Hcl) 1.25 Mg/3 Ml Vial.neb 1.25 Mg IH PRN Q6HRS PRN Avalon-3 Krill Oil 300 Mg Sftg (Krill/Avalon-3/Dha/Epa/Lipids) 1 Each Capsule 1 Each PO DAILY@1700 Anusol-Hc (Hydrocortisone) 30 Gm Cream..g. 1 Mynor RC PRN QID PRN Comtan (Entacapone) 200 Mg Tablet 50 Mg PO Q4HRS Vitamin E (Vitamin E Acetate) 200 Unit Capsule 200 Unit PO DAILY@1700 Vitamin B-12 (Cyanocobalamin (Vitamin B-12)) 100 Mcg Tablet 100 Mcg PO DAILY@ 1700 Cefdinir 300 Mg Capsule 300 Mg PO BID 7 Days Sinemet 25-100 Mg Tablet (Carbidopa/Levodopa) 1 Each Tablet 1 Each PO QID Sinemet 25-100 Mg Tablet (Carbidopa/Levodopa) 1 Each Tablet 1 Each PO QID Calcium 600 + Vit D 200 Tablet (Calcium Carbonate/Vitamin D3) 1 Each Tablet 1 Each PO BID@0530,0845 Lotensin (Benazepril Hcl) 20 Mg Tablet 20 Mg PO DAILY Baclofen 10 Mg Tablet 10 Mg PO QID Ascorbic Acid 500 Mg Tablet 500 Mg PO DAILY@1700 Tylenol (Acetaminophen) 325 Mg Tablet 650 Mg PO PRN Q4HRS PRN I have reviewed the current psychotropics carefully including drug interactions. Risk benefit ratio favors no change other than as noted in my dictated progress note. Diagnosis: Problems: (1) Anxiety disorder (2) Parkinson's disease (3) Impulse control disorder (4) Major depressive disorder, recurrent episode (5) Delirium due to general medical condition VIRY MCGRAW MD May 20, 2018 23:02
[2018-05-21] MEDS: rOPINIRole 1 MG TABLET. PO SCH ×3 (01:53→13:43)
[2018-05-21] MEDS: CARBIDOPA/LEVODOPA 25/100MG TABLET PO SCH ×8 (01:53→22:30)
[2018-05-21] MEDS: ENTACAPONE 200 MG PO SCH ×5 (03:48→20:13)
[2018-05-21] MEDS: CALCIUM CARB/VIT D3 500/200 TABLET PO SCH ×2 (05:39→08:02)
[2018-05-21 06:23] VITALS: BP 133/73
[2018-05-21] MEDS: PANTOPRAZOLE 40 MG TABLET. PO SCH ×2 (07:55→18:42)
[2018-05-21] MEDS: BACLOFEN 10 MG TABLET PO SCH ×4 (07:55→20:12)
[2018-05-21] MEDS: levETIRAcetam 500 MG TABLET PO SCH ×2 (07:55→20:12)
[2018-05-21] MEDS: MULTIVITAMIN with MINERAL TABLET. PO SCH (07:55)
[2018-05-21] MEDS: SERTRALINE 50 MG TABLET. PO SCH (07:55)
[2018-05-21] MEDS: LACTOBACILLUS RHAMNOSUS GG 1 CAPSULE. PO SCH ×2 (07:55→20:13)
[2018-05-21] MEDS: metFORMIN 500 MG TABLET PO SCH ×2 (07:55→18:41)
[2018-05-21] MEDS: POTASSIUM CHLORIDE 20 MEQ TABLET.ER. PO SCH (07:55)
[2018-05-21] MEDS: MAGNESIUM OXIDE 400 MG TABLET PO SCH (07:55)
[2018-05-21] MEDS: LISINOPRIL 20 MG TABLET PO SCH (07:56)
[2018-05-21] MEDS: INSULIN LISPRO 300 UNITS/3 ML INSULN.PEN. SQ SCH ×3 (08:00→17:00)
[2018-05-21] MEDS: oxyCODONE/APAP 10/325 1 TAB TABLET PO SCH ×4 (08:03→20:13)
[2018-05-21] MEDS: clonazePAM 0.5 MG TABLET PO SCH ×3 (08:03→20:17)
[2018-05-21 16:36] VITALS: BP 102/68
--- NOTE | 2018-05-21 18:31 | PN ---
DATE: 05/19/2018 This is a late entry, 05/19/2018, covers the elements not covered in my initial note. SUBJECTIVE: I met with the patient in the evening. The patient has been more lucid and she was able to stand for transfer in the bathroom, which is an improvement. She slept 8 hours the previous night. REVIEW OF SYSTEMS: No CV, , pulmonary, eye system symptoms on review. Gait unsteady. MENTAL STATUS EXAM: Oriented to herself and situation. Speech has some latency, low in volume, coherent, abstraction fair. Computation able to do no step on serial seven, remembered 1/3 objects at 3 minutes. No psychotic symptoms, suicidal or homicidal ideation. Mood and affect less dysphoric, less anxious. LABORATORY DATA: Reviewed. IMPRESSION: Unchanged from initial note. PLAN: No change from initial note. MAN Radha MCGRAW MD DR: JAIMIE/maverick JOB#: [id number] / [id number]
[2018-05-21] MEDS: OMEGA-3 FATTY ACIDS/FISH OIL 1,000 MG CAPSULE. PO SCH (18:42)
[2018-05-21] MEDS: rOPINIRole 2 MG TABLET. PO SCH (18:42)
[2018-05-21] MEDS: ASCORBIC ACID 500 MG TABLET PO SCH (18:42)
[2018-05-21] MEDS: CYANOCOBALAMIN (VITAMIN B-12) 1,000 MCG TABLET. PO SCH (18:43)
[2018-05-21] MEDS: VITAMIN E 200 UNIT CAPSULE. PO SCH (18:43)
--- NOTE | 2018-05-21 21:04 | PDOC ---
Exam Note: Junior Note: Please also refer to the separate dictated note~for this date of service dictated separately.~Patient seen individually. Discussed the patient with Nursing staff reviewed the chart.~Reviewed interim history and current functioning. Reviewed vital signs,~Labs/ Radiology~and current medications noted below. Continue current treatment with the changes noted in the dictated addendum note Assessment: Vital Signs: Vital Signs Date Time Temp Pulse Resp B/P (MAP) Pulse Ox O2 Delivery O2 Flow Rate FiO2 05/21/18 16:36 97.4 73 18 102/68 (79) 95 05/21/18 06:23 Room Air I&O Intake and Output 05/21/18 07:00 Intake Total 720 ml Balance 720 ml Intake Oral 720 ml Labs: Laboratory Tests Test 05/21/18 07:32 05/21/18 13:09 05/21/18 17:00 05/21/18 19:22 Glucose (Fingerstick) 132 mg/dL (70-99) H 125 mg/dL (70-99) H 118 mg/dL (70-99) H 144 mg/dL (70-99) H Current Medications: Meds: Current Medications Acetaminophen (Tylenol) 650 mg PRN Q6HRS PRN PO PAIN / TEMP; Start 05/12/18 at 21:45; Stop 05/12/18 at 22:47; Status DC Multi-Ingredient Ointment (Analgesic [place]) 1 mynor PRN QID PRN TP MUSCLE PAIN Last administered on 05/16/18at 02:53; Start 05/12/18 at 21:45 Al Hydroxide/Mg Hydroxide (Mylanta Plus Xs) 15 ml PRN AFTMEALHC PRN PO DYSPEPSIA; Start 05/12/18 at 21:45 Magnesium Hydroxide (Milk Of Magnesia) 2,400 mg PRN QHS PRN PO CONSTIPATION; Start 05/12/18 at 21:45 Sertraline HCl (Zoloft) 50 mg DAILY PO Last administered on 05/13/18at 08:08; Start 05/13/18 at 09:00; Stop 05/13/18 at 13:38; Status DC Acetaminophen (Tylenol) 650 mg PRN Q4HRS PRN PO PAIN / TEMP Last administered on 05/13/18at 01:37; Start 05/12/18 at 22:30 Ascorbic Acid (Vitamin C) 500 mg DAILY@1700 PO Last administered on 05/21/18 18:42; Start 05/13/18 at 17:00 Carbidopa/Levodopa (Sinemet 25/100) 1.5 tab 0200,0530,1100,1700 PO Last administered on 05/21/18 18:43; Start 05/13/18 at 02:00 Carbidopa/Levodopa (Sinemet 25/100) 1 tab 0845,1415,2000,2230 PO Last administered on 05/21/18at 20:13; Start 05/12/18 at 23:00 Cyanocobalamin (Vitamin B-12) 250 mcg DAILY@1700 PO Last administered on 18:43; Start 05/13/18 at 17:00 Hydrocortisone (Proctosol-Hc) 1 mynor PRN QID PRN RC HEMORRHOIDS; Start 05/12/18 at 22:30 Baclofen (Lioresal) 10 mg QID PO Last administered on 05/21/18at 20:12; Start at 23:00 Entacapone (Comtan) 200 mg Q4HRS PO ; Start 05/13/18 at 00:00; Stop 05/14/18 at 12:26; Status DC Lisinopril (Prinivil) 20 mg DAILY PO Last administered on 05/21/18at 07:56; Start 05/13/18 at 09:00 Calcium/Vitamin D (Oscal D 500mg/ 200uts) 1 tab BID@0530,0845 PO Last administered on 05/21/18at 08:02; Start 05/13/18 at 05:30 Cefpodoxime Proxetil (Vantin) 200 mg BID PO Last administered on 05/19/18at 08: 06; Start 05/12/18 at 23:00; Stop 05/19/18 at 09:01; Status DC Fish Oil (Fish Oil) 1,000 mg DAILY@1700 PO Last administered on 05/21/18at 18:42 ; Start 05/13/18 at 17:00 Non-Formulary Medication (Levalbuterol Hcl (Xopenex)) 1.25 mg PRN Q6HRS PRN IH SHORTNESS OF BREATH; Start 05/12/18 at 22:45; Status UNV Levetiracetam (Keppra) 500 mg BID PO Last administered on 05/21/18 20:12; Start 05/12/18 at 23:00 Magnesium Oxide (Magnesium Oxide) 400 mg DAILY PO Last administered on 07:55; Start 05/13/18 at 09:00 Multivitamins/ Calcium (Thera-M Plus) 1 tab DAILY PO Last administered on 07:55; Start 05/13/18 at 09:00 Non-Formulary Medication (Lane-3 Acid Ethyl Esters (Lovaza)) 1 gm DAILY@1700 PO ; Start 05/13/18 at 17:00; Stop 05/13/18 at 17:00; Status DC Pantoprazole Sodium (Protonix) 20 mg BIDWMEALS PO Last administered on 18:42; Start 05/13/18 at 08:00 Potassium Chloride (Klor-Con) 20 meq DAILYWBKFT PO Last administered on 07:55; Start 05/13/18 at 08:00 Ropinirole HCl (Requip) 1.5 mg TID@0200,0530,1100 PO Last administered on 13:43; Start 05/13/18 at 02:00 Ropinirole HCl (Requip) 2 mg DAILY@1700 PO Last administered on 05/21/18 18:42 ; Start 05/13/18 at 17:00 Vitamin E 200 unit DAILY@1700 PO Last administered on 05/21/18 18:43; Start at 17:00 Insulin Human Lispro (HumaLOG) 0-9 UNITS TIDWMEALS SQ Last administered on 05/18 18:47; Start 05/13/18 at 08:00 Dextrose 12.5 gm PRN Q15MIN PRN IV SEE COMMENTS; Start 05/12/18 at 22:45 Albuterol Sulfate (Ventolin) 2.5 mg PRN Q6HRS PRN NEB SHORTNESS OF BREATH; Start 05/12/18 at 23:00 Lactobacillus Rhamnosus (Culturelle) 1 cap BID PO Last administered on 20:13; Start 05/13/18 at 09:00 Clonazepam (KlonoPIN) 0.5 mg TID PO Last administered on 05/14/18at 07:28; Start 05/13/18 at 14:00; Stop 05/14/18 at 12:07; Status DC Oxycodone/ Acetaminophen (Percocet 10/325) 1 tab PRN QID PRN PO PAIN Last administered on 05/14/18at 07:28; Start 05/13/18 at 13:45; Stop 05/14/18 at 17:29 ; Status DC Metformin HCl (Glucophage) 1,000 mg DAILYWBKFT PO Last administered on at 07:55; Start 05/14/18 at 08:00 Metformin HCl (Glucophage) 500 mg DAILYWSUP PO Last administered on 05/21/18at 18:41; Start 05/13/18 at 17:00 Sertraline HCl (Zoloft) 25 mg DAILY PO Last administered on 05/16/18at 08:02; Start 05/14/18 at 09:00; Stop 05/16/18 at 18:02; Status DC Clonazepam (KlonoPIN) 0.5 mg BID PO Last administered on 05/16/18at 20:04; Start 05/14/18 at 21:00; Stop 05/16/18 at 21:01; Status DC Clonazepam (KlonoPIN) 0.25 mg DAILY@1400 PO Last administered on 05/16/18at 14: 42; Start 05/14/18 at 14:00; Stop 05/16/18 at 14:01; Status DC Non-Formulary Medication 1 ea Q4HRS PO Last administered on 05/21/18at 20:13; Start 05/14/18 at 16:00 Clonazepam (KlonoPIN) 0.25 mg Taper TID PO Last administered on 05/21/18at 20:17 ; Start 05/17/18 at 09:00; Stop 05/29/18 at 08:59 Clonazepam (KlonoPIN) 0.5 mg HS PO Last administered on 05/19/18at 20:03; Start 05/17/18 at 21:00; Stop 05/19/18 at 21:01; Status DC Olanzapine (ZyPREXA ZYDIS) 1.25 mg PRN Q2HR PRN PO PSYCHOSIS; Start 05/14/18 at 14:15 Oxycodone/ Acetaminophen (Percocet 10/325) 1 tab QID PRN PO PAIN; Start at 21:00; Stop 05/14/18 at 21:00; Status DC Oxycodone/ Acetaminophen (Percocet 10/325) 1 tab QID PO Last administered on at 20:13; Start 05/14/18 at 21:00 Sertraline HCl (Zoloft) 50 mg DAILY PO Last administered on 05/21/18at 07:55; Start 05/17/18 at 09:00 Nystatin (Nystop) 15 mynor STK-MED ONCE TP ; Start 05/19/18 at 22:19; Stop at 22:25; Status DC Nystatin (Nystop) 1 mynor PRN BID PRN TP SKIN BREAKDOWN; Start 05/19/18 at 22:30 Nystatin (Nystop) 1 mynor PRN BID PRN TP SKIN PROTECTION; Start 05/19/18 at 22:30 ; Status UNV Active Scripts Active Reported Oxycodone-Acetaminophen 10-325 (Oxycodone Hcl/Acetaminophen) 1 Each Tablet 1 Each PO PRN QID PRN Metformin Hcl 500 Mg Tablet 500 Mg PO DAILYWSUP Metformin Hcl 1,000 Mg Tablet 1,000 Mg PO DAILYWBKFT Clonazepam 0.5 Mg Tablet 0.5 Mg PO TID Zoloft (Sertraline Hcl) 25 Mg Tablet 25 Mg PO DAILY Requip (Ropinirole Hcl) 1 Mg Tablet 2 Mg PO DAILY@1700 Requip (Ropinirole Hcl) 1 Mg Tablet 1.5 Mg PO TID@0200,0530,1100 Keppra (Levetiracetam) 500 Mg Tablet 500 Mg PO BID Zoloft (Sertraline Hcl) 50 Mg Tablet 50 Mg PO DAILY Potassium Chloride 20 Meq Tablet.er 20 Meq PO DAILY Protonix (Pantoprazole Sodium) 20 Mg Tablet.dr 20 Mg PO BIDWMEALS Lovaza (Lane-3 Acid Ethyl Esters) 1 Gm Capsule 1 Gm PO DAILY@1700 Multivitamins (Multivitamin) 1 Each Tablet 1 Each PO DAILY Mag-Oxide (Magnesium Oxide) 400 Mg Tablet 400 Mg PO DAILY Xopenex (Levalbuterol Hcl) 1.25 Mg/3 Ml Vial.neb 1.25 Mg IH PRN Q6HRS PRN Lane-3 Krill Oil 300 Mg Sftg (Krill/Lane-3/Dha/Epa/Lipids) 1 Each Capsule 1 Each PO DAILY@1700 Anusol-Hc (Hydrocortisone) 30 Gm Cream..g. 1 Mynor RC PRN QID PRN Comtan (Entacapone) 200 Mg Tablet 50 Mg PO Q4HRS Vitamin E (Vitamin E Acetate) 200 Unit Capsule 200 Unit PO DAILY@1700 Vitamin B-12 (Cyanocobalamin (Vitamin B-12)) 100 Mcg Tablet 100 Mcg PO DAILY@ 1700 Cefdinir 300 Mg Capsule 300 Mg PO BID 7 Days Sinemet 25-100 Mg Tablet (Carbidopa/Levodopa) 1 Each Tablet 1 Each PO QID Sinemet 25-100 Mg Tablet (Carbidopa/Levodopa) 1 Each Tablet 1 Each PO QID Calcium 600 + Vit D 200 Tablet (Calcium Carbonate/Vitamin D3) 1 Each Tablet 1 Each PO BID@0530,0845 Lotensin (Benazepril Hcl) 20 Mg Tablet 20 Mg PO DAILY Baclofen 10 Mg Tablet 10 Mg PO QID Ascorbic Acid 500 Mg Tablet 500 Mg PO DAILY@1700 Tylenol (Acetaminophen) 325 Mg Tablet 650 Mg PO PRN Q4HRS PRN I have reviewed the current psychotropics carefully including drug interactions. Risk benefit ratio favors no change other than as noted in my dictated progress note. Diagnosis: Problems: (1) Anxiety disorder (2) Parkinson's disease (3) Impulse control disorder (4) Major depressive disorder, recurrent episode (5) Delirium due to general medical condition VIRY MCGRAW MD May 21, 2018 21:04
[2018-05-22] MEDS: rOPINIRole 1 MG TABLET. PO SCH ×3 (02:00→10:15)
[2018-05-22] MEDS: CARBIDOPA/LEVODOPA 25/100MG TABLET PO SCH ×8 (02:00→22:35)
[2018-05-22] MEDS: ENTACAPONE 200 MG PO SCH ×6 (04:00→20:31)
[2018-05-22] MEDS: CALCIUM CARB/VIT D3 500/200 TABLET PO SCH ×2 (05:03→08:01)
[2018-05-22 06:03] VITALS: BP 166/74
[2018-05-22] MEDS: SERTRALINE 50 MG TABLET. PO SCH (08:00)
[2018-05-22] MEDS: POTASSIUM CHLORIDE 20 MEQ TABLET.ER. PO SCH (08:00)
[2018-05-22] MEDS: INSULIN LISPRO 300 UNITS/3 ML INSULN.PEN. SQ SCH ×3 (08:00→18:22)
[2018-05-22] MEDS: BACLOFEN 10 MG TABLET PO SCH ×4 (08:00→20:32)
[2018-05-22] MEDS: PANTOPRAZOLE 40 MG TABLET. PO SCH ×2 (08:02→15:29)
[2018-05-22] MEDS: MAGNESIUM OXIDE 400 MG TABLET PO SCH (08:02)
[2018-05-22] MEDS: LACTOBACILLUS RHAMNOSUS GG 1 CAPSULE. PO SCH ×2 (08:02→20:32)
[2018-05-22] MEDS: levETIRAcetam 500 MG TABLET PO SCH ×2 (08:03→20:33)
[2018-05-22] MEDS: MULTIVITAMIN with MINERAL TABLET. PO SCH (08:03)
[2018-05-22] MEDS: metFORMIN 500 MG TABLET PO SCH ×2 (08:09→15:30)
[2018-05-22] MEDS: clonazePAM 0.5 MG TABLET PO SCH ×3 (08:09→20:32)
[2018-05-22] MEDS: LISINOPRIL 20 MG TABLET PO SCH (09:00)
[2018-05-22] MEDS: oxyCODONE/APAP 10/325 1 TAB TABLET PO SCH ×4 (10:12→20:33)
[2018-05-22] MEDS: rOPINIRole 2 MG TABLET. PO SCH (15:30)
[2018-05-22] MEDS: ASCORBIC ACID 500 MG TABLET PO SCH (15:31)
[2018-05-22] MEDS: VITAMIN E 200 UNIT CAPSULE. PO SCH (15:34)
[2018-05-22] MEDS: CYANOCOBALAMIN (VITAMIN B-12) 1,000 MCG TABLET. PO SCH (15:37)
[2018-05-22] MEDS: OMEGA-3 FATTY ACIDS/FISH OIL 1,000 MG CAPSULE. PO SCH (15:37)
[2018-05-22 16:11] VITALS: BP 107/72
[2018-05-22] MEDS: ACETAMINOPHEN 325 MG TABLET PO PRN (18:13)
--- NOTE | 2018-05-22 22:14 | PN ---
DATE: 05/20/2018 This is a late entry for 05/20/2018 covers elements not covered in my initial note. SUBJECTIVE: I met with the patient in the evening. The patient slept 6-3/4 hours previous evening. She has appeared somewhat weaker than the day before and is in a wheelchair. We did check her UA and it is negative. CBC is unremarkable. REVIEW OF SYSTEMS: Ambulation impaired, in wheelchair. No CV, , pulmonary, eye, ENT system symptoms on review. MENTAL STATUS EXAM: Oriented to herself and situation. Speech has some latency, low in rate and rhythm, low in volume. Abstraction fair, computation impaired, language function intact, attention span short. Mood and affect somewhat withdrawn, but improved, less anxious, smiling as I met with her. LABORATORY DATA: Reviewed. IMPRESSION: Major depressive disorder, recurrent, in partial remission; anxiety disorder, unspecified; delirium due to general medical condition, improved. PLAN: Continue psychotropics from initial note. We will adjust further as clinically indicated. Klonopin is being tapered. VIRY MCGRAW MD DR: JAIMIE/maverick JOB#: [id number] / [id number]
--- NOTE | 2018-05-22 22:19 | PN ---
DATE: 05/21/2018 This is a late entry for 05/21/2018 covers elements not covered in my initial note. SUBJECTIVE: I met with the patient in the evening. The patient had a good day on 05/21/2018, pleasant. Her visited. She watched some movies. REVIEW OF SYSTEMS: Ambulation impaired, in wheelchair. No CV, , pulmonary, eye system symptoms on review. MENTAL STATUS EXAM: The patient is reasonably oriented to place and situation. Speech moderate latency, often responses monosyllabic. Mood and affect is improved. Attention span short. She appears less confused. LABORATORY DATA: Reviewed. IMPRESSION: Major depressive disorder in partial remission; anxiety disorder, unspecified; delirium, unspecified, improving due to general medical condition. PLAN: No change from a psychiatric standpoint. MAN Radha MCGRAW MD DR: JAIMIE/maverick JOB#: [id number] / [id number]
--- NOTE | 2018-05-22 22:47 | PDOC ---
Exam Note: Junior Note: Please also refer to the separate dictated note~for this date of service dictated separately.~Patient seen individually. Discussed the patient with Nursing staff reviewed the chart.~Reviewed interim history and current functioning. Reviewed vital signs,~Labs/ Radiology~and current medications noted below. Continue current treatment with the changes noted in the dictated addendum note Assessment: Vital Signs: Vital Signs Date Time Temp Pulse Resp B/P (MAP) Pulse Ox O2 Delivery O2 Flow Rate FiO2 05/22/18 16:11 98.6 72 18 107/72 (84) 95 Room Air I&O Intake and Output 05/22/18 07:00 Intake Total 1440 ml Balance 1440 ml Intake Oral 1440 ml # Bowel Movements 1 Labs: Laboratory Tests Test 05/22/18 07:27 05/22/18 11:25 05/22/18 16:27 05/22/18 19:50 Glucose (Fingerstick) 135 mg/dL (70-99) H 136 mg/dL (70-99) H 157 mg/dL (70-99) H 102 mg/dL (70-99) H Current Medications: Meds: Current Medications Acetaminophen (Tylenol) 650 mg PRN Q6HRS PRN PO PAIN / TEMP; Start 05/12/18 at 21:45; Stop 05/12/18 at 22:47; Status DC Multi-Ingredient Ointment (Analgesic [place]) 1 mynor PRN QID PRN TP MUSCLE PAIN Last administered on 05/16/18at 02:53; Start 05/12/18 at 21:45 Al Hydroxide/Mg Hydroxide (Mylanta Plus Xs) 15 ml PRN AFTMEALHC PRN PO DYSPEPSIA; Start 05/12/18 at 21:45 Magnesium Hydroxide (Milk Of Magnesia) 2,400 mg PRN QHS PRN PO CONSTIPATION; Start 05/12/18 at 21:45 Sertraline HCl (Zoloft) 50 mg DAILY PO Last administered on 05/13/18at 08:08; Start 05/13/18 at 09:00; Stop 05/13/18 at 13:38; Status DC Acetaminophen (Tylenol) 650 mg PRN Q4HRS PRN PO PAIN / TEMP Last administered on 05/22/18at 18:13; Start 05/12/18 at 22:30 Ascorbic Acid (Vitamin C) 500 mg DAILY@1700 PO Last administered on 05/22/18at 15:31; Start 05/13/18 at 17:00 Carbidopa/Levodopa (Sinemet 25/100) 1.5 tab 0200,0530,1100,1700 PO Last administered on 05/22/18at 15:37; Start 05/13/18 at 02:00 Carbidopa/Levodopa (Sinemet 25/100) 1 tab 0845,1415,2000,2230 PO Last administered on 05/22/18at 22:35; Start 05/12/18 at 23:00 Cyanocobalamin (Vitamin B-12) 250 mcg DAILY@1700 PO Last administered on 15:37; Start 05/13/18 at 17:00 Hydrocortisone (Proctosol-Hc) 1 mynor PRN QID PRN RC HEMORRHOIDS; Start 05/12/18 at 22:30 Baclofen (Lioresal) 10 mg QID PO Last administered on 05/22/18at 20:32; Start at 23:00 Entacapone (Comtan) 200 mg Q4HRS PO ; Start 05/13/18 at 00:00; Stop 05/14/18 at 12:26; Status DC Lisinopril (Prinivil) 20 mg DAILY PO Last administered on 05/22/18at 09:00; Start 05/13/18 at 09:00 Calcium/Vitamin D (Oscal D 500mg/ 200uts) 1 tab BID@0530,0845 PO Last administered on 05/22/18at 08:01; Start 05/13/18 at 05:30 Cefpodoxime Proxetil (Vantin) 200 mg BID PO Last administered on 05/19/18at 08: 06; Start 05/12/18 at 23:00; Stop 05/19/18 at 09:01; Status DC Fish Oil (Fish Oil) 1,000 mg DAILY@1700 PO Last administered on 05/22/18at 15:37 ; Start 05/13/18 at 17:00 Non-Formulary Medication (Levalbuterol Hcl (Xopenex)) 1.25 mg PRN Q6HRS PRN IH SHORTNESS OF BREATH; Start 05/12/18 at 22:45; Status UNV Levetiracetam (Keppra) 500 mg BID PO Last administered on 05/22/18 20:33; Start 05/12/18 at 23:00 Magnesium Oxide (Magnesium Oxide) 400 mg DAILY PO Last administered on 08:02; Start 05/13/18 at 09:00 Multivitamins/ Calcium (Thera-M Plus) 1 tab DAILY PO Last administered on 08:03; Start 05/13/18 at 09:00 Non-Formulary Medication (Eden-3 Acid Ethyl Esters (Lovaza)) 1 gm DAILY@1700 PO ; Start 05/13/18 at 17:00; Stop 05/13/18 at 17:00; Status DC Pantoprazole Sodium (Protonix) 20 mg BIDWMEALS PO Last administered on 15:29; Start 05/13/18 at 08:00 Potassium Chloride (Klor-Con) 20 meq DAILYWBKFT PO Last administered on 08:00; Start 05/13/18 at 08:00 Ropinirole HCl (Requip) 1.5 mg TID@0200,0530,1100 PO Last administered on 10:15; Start 05/13/18 at 02:00 Ropinirole HCl (Requip) 2 mg DAILY@1700 PO Last administered on 05/22/18 15:30 ; Start 05/13/18 at 17:00 Vitamin E 200 unit DAILY@1700 PO Last administered on 05/22/18 15:34; Start at 17:00 Insulin Human Lispro (HumaLOG) 0-9 UNITS TIDWMEALS SQ Last administered on 05/22 18:22; Start 05/13/18 at 08:00 Dextrose 12.5 gm PRN Q15MIN PRN IV SEE COMMENTS; Start 05/12/18 at 22:45 Albuterol Sulfate (Ventolin) 2.5 mg PRN Q6HRS PRN NEB SHORTNESS OF BREATH; Start 05/12/18 at 23:00 Lactobacillus Rhamnosus (Culturelle) 1 cap BID PO Last administered on 20:32; Start 05/13/18 at 09:00 Clonazepam (KlonoPIN) 0.5 mg TID PO Last administered on 05/14/18at 07:28; Start 05/13/18 at 14:00; Stop 05/14/18 at 12:07; Status DC Oxycodone/ Acetaminophen (Percocet 10/325) 1 tab PRN QID PRN PO PAIN Last administered on 05/14/18at 07:28; Start 05/13/18 at 13:45; Stop 05/14/18 at 17:29 ; Status DC Metformin HCl (Glucophage) 1,000 mg DAILYWBKFT PO Last administered on at 08:09; Start 05/14/18 at 08:00 Metformin HCl (Glucophage) 500 mg DAILYWSUP PO Last administered on 05/22/18at 15:30; Start 05/13/18 at 17:00 Sertraline HCl (Zoloft) 25 mg DAILY PO Last administered on 05/16/18at 08:02; Start 05/14/18 at 09:00; Stop 05/16/18 at 18:02; Status DC Clonazepam (KlonoPIN) 0.5 mg BID PO Last administered on 05/16/18at 20:04; Start 05/14/18 at 21:00; Stop 05/16/18 at 21:01; Status DC Clonazepam (KlonoPIN) 0.25 mg DAILY@1400 PO Last administered on 05/16/18at 14: 42; Start 05/14/18 at 14:00; Stop 05/16/18 at 14:01; Status DC Non-Formulary Medication 1 ea Q4HRS PO Last administered on 05/22/18at 20:31; Start 05/14/18 at 16:00 Clonazepam (KlonoPIN) 0.25 mg Taper TID PO Last administered on 05/22/18at 20:32 ; Start 05/17/18 at 09:00; Stop 05/29/18 at 08:59 Clonazepam (KlonoPIN) 0.5 mg HS PO Last administered on 05/19/18at 20:03; Start 05/17/18 at 21:00; Stop 05/19/18 at 21:01; Status DC Olanzapine (ZyPREXA ZYDIS) 1.25 mg PRN Q2HR PRN PO PSYCHOSIS; Start 05/14/18 at 14:15 Oxycodone/ Acetaminophen (Percocet 10/325) 1 tab QID PRN PO PAIN; Start at 21:00; Stop 05/14/18 at 21:00; Status DC Oxycodone/ Acetaminophen (Percocet 10/325) 1 tab QID PO Last administered on at 20:33; Start 05/14/18 at 21:00 Sertraline HCl (Zoloft) 50 mg DAILY PO Last administered on 05/22/18at 08:00; Start 05/17/18 at 09:00 Nystatin (Nystop) 15 mynor STK-MED ONCE TP ; Start 05/19/18 at 22:19; Stop at 22:25; Status DC Nystatin (Nystop) 1 mynor PRN BID PRN TP SKIN BREAKDOWN; Start 05/19/18 at 22:30 Nystatin (Nystop) 1 mynor PRN BID PRN TP SKIN PROTECTION; Start 05/19/18 at 22:30 ; Status UNV Active Scripts Active Reported Oxycodone-Acetaminophen 10-325 (Oxycodone Hcl/Acetaminophen) 1 Each Tablet 1 Each PO PRN QID PRN Metformin Hcl 500 Mg Tablet 500 Mg PO DAILYWSUP Metformin Hcl 1,000 Mg Tablet 1,000 Mg PO DAILYWBKFT Clonazepam 0.5 Mg Tablet 0.5 Mg PO TID Zoloft (Sertraline Hcl) 25 Mg Tablet 25 Mg PO DAILY Requip (Ropinirole Hcl) 1 Mg Tablet 2 Mg PO DAILY@1700 Requip (Ropinirole Hcl) 1 Mg Tablet 1.5 Mg PO TID@0200,0530,1100 Keppra (Levetiracetam) 500 Mg Tablet 500 Mg PO BID Zoloft (Sertraline Hcl) 50 Mg Tablet 50 Mg PO DAILY Potassium Chloride 20 Meq Tablet.er 20 Meq PO DAILY Protonix (Pantoprazole Sodium) 20 Mg Tablet.dr 20 Mg PO BIDWMEALS Lovaza (Eden-3 Acid Ethyl Esters) 1 Gm Capsule 1 Gm PO DAILY@1700 Multivitamins (Multivitamin) 1 Each Tablet 1 Each PO DAILY Mag-Oxide (Magnesium Oxide) 400 Mg Tablet 400 Mg PO DAILY Xopenex (Levalbuterol Hcl) 1.25 Mg/3 Ml Vial.neb 1.25 Mg IH PRN Q6HRS PRN Eden-3 Krill Oil 300 Mg Sftg (Krill/Eden-3/Dha/Epa/Lipids) 1 Each Capsule 1 Each PO DAILY@1700 Anusol-Hc (Hydrocortisone) 30 Gm Cream..g. 1 Myn[place] RC PRN QID PRN Comtan (Entacapone) 200 Mg Tablet 50 Mg PO Q4HRS Vitamin E (Vitamin E Acetate) 200 Unit Capsule 200 Unit PO DAILY@1700 Vitamin B-12 (Cyanocobalamin (Vitamin B-12)) 100 Mcg Tablet 100 Mcg PO DAILY@ 1700 Cefdinir 300 Mg Capsule 300 Mg PO BID 7 Days Sinemet 25-100 Mg Tablet (Carbidopa/Levodopa) 1 Each Tablet 1 Each PO QID Sinemet 25-100 Mg Tablet (Carbidopa/Levodopa) 1 Each Tablet 1 Each PO QID Calcium 600 + Vit D 200 Tablet (Calcium Carbonate/Vitamin D3) 1 Each Tablet 1 Each PO BID@0530,0845 Lotensin (Benazepril Hcl) 20 Mg Tablet 20 Mg PO DAILY Baclofen 10 Mg Tablet 10 Mg PO QID Ascorbic Acid 500 Mg Tablet 500 Mg PO DAILY@1700 Tylenol (Acetaminophen) 325 Mg Tablet 650 Mg PO PRN Q4HRS PRN I have reviewed the current psychotropics carefully including drug interactions. Risk benefit ratio favors no change other than as noted in my dictated progress note. Diagnosis: Problems: (1) Anxiety disorder (2) Parkinson's disease (3) Impulse control disorder (4) Major depressive disorder, recurrent episode (5) Delirium due to general medical condition VIRY MCGRAW MD May 22, 2018 22:47
[2018-05-23] MEDS: ENTACAPONE 200 MG PO SCH ×6 (00:22→20:46)
[2018-05-23] MEDS: CARBIDOPA/LEVODOPA 25/100MG TABLET PO SCH ×8 (02:06→22:33)
[2018-05-23] MEDS: rOPINIRole 1 MG TABLET. PO SCH ×3 (02:06→11:48)
[2018-05-23 05:46] VITALS: BP 145/77
[2018-05-23] MEDS: CALCIUM CARB/VIT D3 500/200 TABLET PO SCH ×2 (06:22→08:46)
[2018-05-23] MEDS: INSULIN LISPRO 300 UNITS/3 ML INSULN.PEN. SQ SCH ×3 (08:00→17:00)
[2018-05-23] MEDS: POTASSIUM CHLORIDE 20 MEQ TABLET.ER. PO SCH (08:35)
[2018-05-23] MEDS: BACLOFEN 10 MG TABLET PO SCH ×4 (08:36→20:46)
[2018-05-23] MEDS: MULTIVITAMIN with MINERAL TABLET. PO SCH (08:36)
[2018-05-23] MEDS: LACTOBACILLUS RHAMNOSUS GG 1 CAPSULE. PO SCH ×2 (08:36→20:46)
[2018-05-23] MEDS: metFORMIN 500 MG TABLET PO SCH ×2 (08:36→17:30)
[2018-05-23] MEDS: LISINOPRIL 20 MG TABLET PO SCH (08:37)
[2018-05-23] MEDS: SERTRALINE 50 MG TABLET. PO SCH (08:37)
[2018-05-23] MEDS: levETIRAcetam 500 MG TABLET PO SCH ×2 (08:38→20:45)
[2018-05-23] MEDS: PANTOPRAZOLE 40 MG TABLET. PO SCH ×2 (08:38→17:30)
[2018-05-23] MEDS: oxyCODONE/APAP 10/325 1 TAB TABLET PO SCH ×4 (08:44→20:55)
[2018-05-23] MEDS: clonazePAM 0.5 MG TABLET PO SCH ×2 (08:45→20:56)
[2018-05-23] MEDS: MAGNESIUM OXIDE 400 MG TABLET PO SCH (08:46)
--- NOTE | 2018-05-23 12:27 | PN ---
DATE: 05/22/2018 SUBJECTIVE: The patient continued to complain of generalized weakness and difficulty to walk. She has not had any recurrent seizure since admission; however, the last seizure was a few months ago. OBJECTIVE: GENERAL: Moderately obese white female, not in acute distress. VITAL SIGNS: Blood pressure 130/74, respiratory rate 20, pulse is 73 and regular, temperature 97.4, and oxygen saturation 96% on room air. HEENT: Normocephalic, atraumatic, otherwise unremarkable. NECK: Supple. Negative for carotid bruit, lymphadenopathy or thyromegaly. LUNGS: Clear to A and P. CARDIOVASCULAR: Regular rhythm, normal S1, S2. There is no S3, S4, or murmur. ABDOMEN: Soft. Bowel sounds positive. EXTREMITIES: Negative for cyanosis, clubbing, pitting edema. NEUROLOGICAL EXAM: Mental Status: The patient is alert and oriented x 2. The speech is fluent. There is no language dysfunction. Memory, judgment, and abstract thinking are fair. The patient denies hallucination or delusion. Cranial Nerves: The cranial nerves are grossly intact. Motor Examination: No focal muscle bulk was seen. The tone is normal. The strength is 4/5 throughout. The patient has no obvious resting tremor. Sensory: Revealed normal pinprick and light touch senses throughout. Deep tendon reflexes were symmetric and hypoactive with absent Achilles responses. Gait: The patient able to stand and walk. IMPRESSION: 1. Parkinson disease -- with symptoms of gait disturbances. No obvious tremor or rigidity. 2. History of seizure disorder of unknown etiology. 3. Multiple psychiatric problems include depressions, anxiety, with psychotic features. 4. Multiple medical problems include diabetes mellitus, hypertension, and anxiety. RECOMMENDATIONS: Continue with current medical and psychiatric care and continue with current home medications. M Isma LIVINGSTON MD DR: VIJAYA/maverick JOB#: [id number] / [id number]
--- NOTE | 2018-05-23 12:48 | CONS ---
DATE OF CONSULTATION: 05/19/2018 NEUROLOGIC CONSULTATION REFERRING PHYSICIAN: Khai Mack MD REASON FOR CONSULTATION: History of seizure and Parkinson's disease. HISTORY OF PRESENT ILLNESS: This is a 73-year-old right-handed female who was admitted on 05/12/2018, on account of worsening of Parkinson disease, worsening of depressions and mental status changes. Apparently, the patient sustained a fall at home. She decided to stay on the floor for 3 days and was found to have feces and urine on the floor as well. The patient who lives with her , was found by her primary care physician when he tried to check on her. The case was reported. Therefore, the patient was transferred via [facility] in [place] and she was treated for urinary tract infections and for encephalopathy. Neuro consult was requested because the patient has had history of seizure disorder diagnosed a few months ago and had longstanding history of Parkinson disease diagnosed several years ago. She has been followed by a neurologist, Dr. Cook in [place]. The patient and her were not able to describe the cause of her seizure or the type of seizure. She was initially evaluated in the Emergency Room by ER physician and given medication Keppra then she was followed by a neurologist who continued with the same medications. However, reviewing the old medical record, it was dictated that the patient underwent a head CT scan which was normal and it was reported that she had a normal electroencephalogram. Since admission, the patient has not had any recurrent seizures and apparently her Parkinson's symptoms have been stable without any worsening. The patient is suffering from major depressions and delirium. She was admitted for further mood stabilization. The patient denies suicidal ideation or suicidal attempt. Appetite has been erratic. Sleep has been disturbed. She denies chest pain, shortness of breath, or palpitation, dysarthria, dysphagia, or vertigo. PAST MEDICAL HISTORY: Significant for Parkinson's disease, anxiety, vitamin B12 deficiency, diabetes mellitus, history of seizure disorder, hypertension, and GERD. SOCIAL HISTORY: The patient lives with her at home. She denies smoking, alcohol drinking, or illicit drug use. CURRENT HOME MEDICATIONS: Zoloft, clonazepam, oxycodone, olanzapine, metformin, vitamin E, ropinirole 2 mg daily, fish oil, vitamin B12, vitamin C, magnesium, lisinopril 20 mg daily, potassium, Protonix, calcium with vitamin D, carbidopa/levodopa 25/100 1.5 tablet 4 times daily, Keppra 500 mg twice daily, albuterol inhaler, baclofen 10 mg q.i.d. and carbidopa 25/100 four times daily, and Tylenol. ALLERGIES: SULFA DRUGS. REVIEW OF SYSTEMS: A 10-point review of system was performed as mentioned above in history of present illness, otherwise unremarkable. PHYSICAL EXAMINATION: GENERAL: Moderately obese female, not in acute distress. She weighs 214 pounds. VITAL SIGNS: Blood pressure 138/80, respiratory rate 16, pulse is 83 and regular, temperature 97.3, oxygen saturation 95% on room air. HEENT: Normocephalic, atraumatic, otherwise unremarkable. NECK: Supple. Negative for carotid bruit, lymphadenopathy or thyromegaly. LUNGS: Clear to A and P. CARDIOVASCULAR: Regular rhythm, normal S1, S2. ABDOMEN: Soft. Bowel sounds positive. EXTREMITIES: Negative for cyanosis, clubbing, pitting edema. MENTAL STATUS: The patient is alert and oriented x 2. The speech is fluent. There is no language dysfunction. Memory, judgment, and abstract thinking are fair. The patient denies hallucination or delusion. CRANIAL NERVES: Visual cole are full. The pupils are reactive to light and accommodation. The extraocular movements are intact. There is no nystagmus. There is no facial motor or sensory deficit. Hearing is intact bilaterally. The palate is elevated symmetrically. Sternocleidomastoid muscles are powerful bilaterally. The patient shrugs her shoulders symmetrically and protrudes her tongue in the midline without fasciculation or atrophy. MOTOR EXAMINATION: No focal muscle bulk was seen. The tone is normal. The strength is 4/5 throughout. SENSORY EXAMINATION: Revealed normal pinprick and light touch senses throughout. Deep tendon reflexes were symmetric and hypoactive with absent Achilles responses. GAIT: The patient has unsteady stance. LABORATORY DATA: From 05/12/2018 revealed a CBC of 4300, hemoglobin 10.7, hematocrit 31.8, platelet count 228,000. Chemistry from 05/12/2018 revealed normal cholesterol and LDL. Normal vitamin B12 at 927, but low vitamin D at 29.3 with normal thyroid profile. Urinalysis is negative for urinary tract infections. IMPRESSION: 1. Longstanding history of Parkinson disease, presented with generalized weakness. 2. History of seizure disorder of unknown etiology. She has not had recurrent seizures since first diagnosis few months back. 3. Multiple medical problems include diabetes mellitus, depressions, and anxiety, and gastroesophageal reflux disease. RECOMMENDATIONS: 1. Continue with current medical and psychiatric care. 2. Continue with current home medications for now. M Isma LIVINGSTON MD DR: VIJAYA/maverick JOB#: [id number] / [id number]
[2018-05-23 15:45] VITALS: BP 118/76
[2018-05-23] MEDS: OMEGA-3 FATTY ACIDS/FISH OIL 1,000 MG CAPSULE. PO SCH (17:29)
[2018-05-23] MEDS: CYANOCOBALAMIN (VITAMIN B-12) 1,000 MCG TABLET. PO SCH (17:30)
[2018-05-23] MEDS: VITAMIN E 200 UNIT CAPSULE. PO SCH (17:30)
[2018-05-23] MEDS: rOPINIRole 2 MG TABLET. PO SCH (17:30)
[2018-05-23] MEDS: ASCORBIC ACID 500 MG TABLET PO SCH (17:31)
--- NOTE | 2018-05-23 20:59 | PDOC ---
Exam Note: Junior Note: Please also refer to the separate dictated note~for this date of service dictated separately.~Patient seen individually. Discussed the patient with Nursing staff reviewed the chart.~Reviewed interim history and current functioning. Reviewed vital signs,~Labs/ Radiology~and current medications noted below. Continue current treatment with the changes noted in the dictated addendum note Assessment: Vital Signs: Vital Signs Date Time Temp Pulse Resp B/P (MAP) Pulse Ox O2 Delivery O2 Flow Rate FiO2 05/23/18 15:45 97.6 77 20 118/76 (90) 94 Room Air I&O Intake and Output 05/23/18 07:00 Intake Total 840 ml Balance 840 ml Intake Oral 840 ml # Bowel Movements 2 Labs: Laboratory Tests Test 05/23/18 07:25 05/23/18 11:22 05/23/18 17:06 05/23/18 19:11 Glucose (Fingerstick) 134 mg/dL (70-99) H 176 mg/dL (70-99) H 120 mg/dL (70-99) H 172 mg/dL (70-99) H Current Medications: Meds: Current Medications Acetaminophen (Tylenol) 650 mg PRN Q6HRS PRN PO PAIN / TEMP; Start 05/12/18 at 21:45; Stop 05/12/18 at 22:47; Status DC Multi-Ingredient Ointment (Analgesic [place]) 1 mynor PRN QID PRN TP MUSCLE PAIN Last administered on 05/16/18at 02:53; Start 05/12/18 at 21:45 Al Hydroxide/Mg Hydroxide (Mylanta Plus Xs) 15 ml PRN AFTMEALHC PRN PO DYSPEPSIA; Start 05/12/18 at 21:45 Magnesium Hydroxide (Milk Of Magnesia) 2,400 mg PRN QHS PRN PO CONSTIPATION; Start 05/12/18 at 21:45 Sertraline HCl (Zoloft) 50 mg DAILY PO Last administered on 05/13/18at 08:08; Start 05/13/18 at 09:00; Stop 05/13/18 at 13:38; Status DC Acetaminophen (Tylenol) 650 mg PRN Q4HRS PRN PO PAIN / TEMP Last administered on 05/22/18at 18:13; Start 05/12/18 at 22:30 Ascorbic Acid (Vitamin C) 500 mg DAILY@1700 PO Last administered on 05/23/18 17:31; Start 05/13/18 at 17:00 Carbidopa/Levodopa (Sinemet 25/100) 1.5 tab 0200,0530,1100,1700 PO Last administered on 05/23/18 17:31; Start 05/13/18 at 02:00 Carbidopa/Levodopa (Sinemet 25/100) 1 tab 0845,1415,2000,2230 PO Last administered on 05/23/18 20:46; Start 05/12/18 at 23:00 Cyanocobalamin (Vitamin B-12) 250 mcg DAILY@1700 PO Last administered on 17:30; Start 05/13/18 at 17:00 Hydrocortisone (Proctosol-Hc) 1 mynor PRN QID PRN RC HEMORRHOIDS; Start 05/12/18 at 22:30 Baclofen (Lioresal) 10 mg QID PO Last administered on 05/23/18 20:46; Start at 23:00 Entacapone (Comtan) 200 mg Q4HRS PO ; Start 05/13/18 at 00:00; Stop 05/14/18 at 12:26; Status DC Lisinopril (Prinivil) 20 mg DAILY PO Last administered on 05/23/18at 08:37; Start 05/13/18 at 09:00 Calcium/Vitamin D (Oscal D 500mg/ 200uts) 1 tab BID@0530,0845 PO Last administered on 05/23/18 08:46; Start 05/13/18 at 05:30 Cefpodoxime Proxetil (Vantin) 200 mg BID PO Last administered on 05/19/18 08: 06; Start 05/12/18 at 23:00; Stop 05/19/18 at 09:01; Status DC Fish Oil (Fish Oil) 1,000 mg DAILY@1700 PO Last administered on 05/23/18 17:29 ; Start 05/13/18 at 17:00 Non-Formulary Medication (Levalbuterol Hcl (Xopenex)) 1.25 mg PRN Q6HRS PRN IH SHORTNESS OF BREATH; Start 05/12/18 at 22:45; Status UNV Levetiracetam (Keppra) 500 mg BID PO Last administered on 05/23/18 20:45; Start 05/12/18 at 23:00 Magnesium Oxide (Magnesium Oxide) 400 mg DAILY PO Last administered on 08:46; Start 05/13/18 at 09:00 Multivitamins/ Calcium (Thera-M Plus) 1 tab DAILY PO Last administered on 08:36; Start 05/13/18 at 09:00 Non-Formulary Medication ([place]-3 Acid Ethyl Esters (Lovaza)) 1 gm DAILY@1700 PO ; Start 05/13/18 at 17:00; Stop 05/13/18 at 17:00; Status DC Pantoprazole Sodium (Protonix) 20 mg BIDWMEALS PO Last administered on 17:30; Start 05/13/18 at 08:00 Potassium Chloride (Klor-Con) 20 meq DAILYWBKFT PO Last administered on 08:35; Start 05/13/18 at 08:00 Ropinirole HCl (Requip) 1.5 mg TID@0200,0530,1100 PO Last administered on 11:48; Start 05/13/18 at 02:00 Ropinirole HCl (Requip) 2 mg DAILY@1700 PO Last administered on 05/23/18 17:30 ; Start 05/13/18 at 17:00 Vitamin E 200 unit DAILY@1700 PO Last administered on 05/23/18 17:30; Start at 17:00 Insulin Human Lispro (HumaLOG) 0-9 UNITS TIDWMEALS SQ Last administered on 05/23 11:55; Start 05/13/18 at 08:00 Dextrose 12.5 gm PRN Q15MIN PRN IV SEE COMMENTS; Start 05/12/18 at 22:45 Albuterol Sulfate (Ventolin) 2.5 mg PRN Q6HRS PRN NEB SHORTNESS OF BREATH; Start 05/12/18 at 23:00 Lactobacillus Rhamnosus (Culturelle) 1 cap BID PO Last administered on 20:46; Start 05/13/18 at 09:00 Clonazepam (KlonoPIN) 0.5 mg TID PO Last administered on 05/14/18at 07:28; Start 05/13/18 at 14:00; Stop 05/14/18 at 12:07; Status DC Oxycodone/ Acetaminophen (Percocet 10/325) 1 tab PRN QID PRN PO PAIN Last administered on 05/14/18at 07:28; Start 05/13/18 at 13:45; Stop 05/14/18 at 17:29 ; Status DC Metformin HCl (Glucophage) 1,000 mg DAILYWBKFT PO Last administered on at 08:36; Start 05/14/18 at 08:00 Metformin HCl (Glucophage) 500 mg DAILYWSUP PO Last administered on 05/23/18 17:30; Start 05/13/18 at 17:00 Sertraline HCl (Zoloft) 25 mg DAILY PO Last administered on 05/16/18at 08:02; Start 05/14/18 at 09:00; Stop 05/16/18 at 18:02; Status DC Clonazepam (KlonoPIN) 0.5 mg BID PO Last administered on 05/16/18at 20:04; Start 05/14/18 at 21:00; Stop 05/16/18 at 21:01; Status DC Clonazepam (KlonoPIN) 0.25 mg DAILY@1400 PO Last administered on 05/16/18at 14: 42; Start 05/14/18 at 14:00; Stop 05/16/18 at 14:01; Status DC Non-Formulary Medication 1 ea Q4HRS PO Last administered on 05/23/18 20:46; Start 05/14/18 at 16:00 Clonazepam (KlonoPIN) 0.25 mg Taper BID PO Last administered on 05/23/18at 20:56 ; Start 05/17/18 at 09:00; Stop 05/29/18 at 08:59 Clonazepam (KlonoPIN) 0.5 mg HS PO Last administered on 05/19/18at 20:03; Start 05/17/18 at 21:00; Stop 05/19/18 at 21:01; Status DC Olanzapine (ZyPREXA ZYDIS) 1.25 mg PRN Q2HR PRN PO PSYCHOSIS; Start 05/14/18 at 14:15 Oxycodone/ Acetaminophen (Percocet 10/325) 1 tab QID PRN PO PAIN; Start at 21:00; Stop 05/14/18 at 21:00; Status DC Oxycodone/ Acetaminophen (Percocet 10/325) 1 tab QID PO Last administered on at 20:55; Start 05/14/18 at 21:00 Sertraline HCl (Zoloft) 50 mg DAILY PO Last administered on 05/23/18at 08:37; Start 05/17/18 at 09:00; Stop 05/23/18 at 19:17; Status DC Nystatin (Nystop) 15 mynor STK-MED ONCE TP ; Start 05/19/18 at 22:19; Stop at 22:25; Status DC Nystatin (Nystop) 1 mynor PRN BID PRN TP SKIN BREAKDOWN; Start 05/19/18 at 22:30 Nystatin (Nystop) 1 mynor PRN BID PRN TP SKIN PROTECTION; Start 05/19/18 at 22:30 ; Status UNV Sertraline HCl (Zoloft) 75 mg DAILY PO ; Start 05/24/18 at 09:00 Active Scripts Active Reported Oxycodone-Acetaminophen 10-325 (Oxycodone Hcl/Acetaminophen) 1 Each Tablet 1 Each PO PRN QID PRN Metformin Hcl 500 Mg Tablet 500 Mg PO DAILYWSUP Metformin Hcl 1,000 Mg Tablet 1,000 Mg PO DAILYWBKFT Clonazepam 0.5 Mg Tablet 0.5 Mg PO TID Zoloft (Sertraline Hcl) 25 Mg Tablet 25 Mg PO DAILY Requip (Ropinirole Hcl) 1 Mg Tablet 2 Mg PO DAILY@1700 Requip (Ropinirole Hcl) 1 Mg Tablet 1.5 Mg PO TID@0200,0530,1100 Keppra (Levetiracetam) 500 Mg Tablet 500 Mg PO BID Zoloft (Sertraline Hcl) 50 Mg Tablet 50 Mg PO DAILY Potassium Chloride 20 Meq Tablet.er 20 Meq PO DAILY Protonix (Pantoprazole Sodium) 20 Mg Tablet.dr 20 Mg PO BIDWMEALS Lovaza ([place]-3 Acid Ethyl Esters) 1 Gm Capsule 1 Gm PO DAILY@1700 Multivitamins (Multivitamin) 1 Each Tablet 1 Each PO DAILY Mag-Oxide (Magnesium Oxide) 400 Mg Tablet 400 Mg PO DAILY Xopenex (Levalbuterol Hcl) 1.25 Mg/3 Ml Vial.neb 1.25 Mg IH PRN Q6HRS PRN [place]-3 Krill Oil 300 Mg Sftg (Krill/[place]-3/Dha/Epa/Lipids) 1 Each Capsule 1 Each PO DAILY@1700 Anusol-Hc (Hydrocortisone) 30 Gm Cream..g. 1 Myn[place] RC PRN QID PRN Comtan (Entacapone) 200 Mg Tablet 50 Mg PO Q4HRS Vitamin E (Vitamin E Acetate) 200 Unit Capsule 200 Unit PO DAILY@1700 Vitamin B-12 (Cyanocobalamin (Vitamin B-12)) 100 Mcg Tablet 100 Mcg PO DAILY@ 1700 Cefdinir 300 Mg Capsule 300 Mg PO BID 7 Days Sinemet 25-100 Mg Tablet (Carbidopa/Levodopa) 1 Each Tablet 1 Each PO QID Sinemet 25-100 Mg Tablet (Carbidopa/Levodopa) 1 Each Tablet 1 Each PO QID Calcium 600 + Vit D 200 Tablet (Calcium Carbonate/Vitamin D3) 1 Each Tablet 1 Each PO BID@0530,0845 Lotensin (Benazepril Hcl) 20 Mg Tablet 20 Mg PO DAILY Baclofen 10 Mg Tablet 10 Mg PO QID Ascorbic Acid 500 Mg Tablet 500 Mg PO DAILY@1700 Tylenol (Acetaminophen) 325 Mg Tablet 650 Mg PO PRN Q4HRS PRN I have reviewed the current psychotropics carefully including drug interactions. Risk benefit ratio favors no change other than as noted in my dictated progress note. Diagnosis: Problems: (1) Anxiety disorder (2) Parkinson's disease (3) Impulse control disorder (4) Major depressive disorder, recurrent episode (5) Delirium due to general medical condition VIRY MCGRAW MD May 23, 2018 20:59
--- NOTE | 2018-05-23 22:59 | PN ---
DATE: 05/22/2018 This note covers elements not covered in my initial note of 05/22/2018. SUBJECTIVE: I met with the patient in the evening. Overall, the patient is doing better. She slept reasonably previous night. Appears less confused. She remains somewhat anxious, withdrawn at times. REVIEW OF SYSTEMS: Ambulation impaired, in wheelchair. No CV, , pulmonary, eye, ENT system symptoms on review. MENTAL STATUS EXAM: Oriented to herself and situation. Speech moderate latency, often responses monosyllabic. She is able to do only one step on serial sevens, able to spell world forward, backward with 2 errors. She gets a little upset when orientation and similar questions are asked of her "why do you keep asking these things." No suicidal or homicidal ideation. LABORATORY DATA: Reviewed. IMPRESSION: Major depressive disorder; anxiety disorder, unspecified; delirium due to general medical condition appears to be resolving. PLAN: Continue to taper the Klonopin. Continue Zoloft along with Zyprexa p.r.n. VIRY MCGRAW MD DR: JAIMIE/maverick JOB#: [id number] / [id number]
[2018-05-24] MEDS: ENTACAPONE 200 MG PO SCH ×3 (00:17→09:16)
[2018-05-24] MEDS: CARBIDOPA/LEVODOPA 25/100MG TABLET PO SCH ×8 (02:01→23:05)
[2018-05-24] MEDS: rOPINIRole 1 MG TABLET. PO SCH ×3 (02:01→12:07)
[2018-05-24 05:38] VITALS: BP 126/76
[2018-05-24] MEDS: CALCIUM CARB/VIT D3 500/200 TABLET PO SCH ×2 (06:20→09:24)
[2018-05-24] MEDS: LISINOPRIL 20 MG TABLET PO SCH (09:00)
[2018-05-24] MEDS: levETIRAcetam 500 MG TABLET PO SCH ×2 (09:13→20:31)
[2018-05-24] MEDS: metFORMIN 500 MG TABLET PO SCH ×2 (09:14→17:55)
[2018-05-24] MEDS: LACTOBACILLUS RHAMNOSUS GG 1 CAPSULE. PO SCH ×2 (09:14→20:31)
[2018-05-24] MEDS: PANTOPRAZOLE 40 MG TABLET. PO SCH ×2 (09:14→17:49)
[2018-05-24] MEDS: MULTIVITAMIN with MINERAL TABLET. PO SCH (09:15)
[2018-05-24] MEDS: BACLOFEN 10 MG TABLET PO SCH ×4 (09:15→20:31)
[2018-05-24] MEDS: POTASSIUM CHLORIDE 20 MEQ TABLET.ER. PO SCH (09:15)
[2018-05-24] MEDS: MAGNESIUM OXIDE 400 MG TABLET PO SCH (09:15)
[2018-05-24] MEDS: SERTRALINE 50 MG TABLET. PO SCH (09:24)
[2018-05-24] MEDS: oxyCODONE/APAP 10/325 1 TAB TABLET PO SCH ×4 (09:25→20:36)
[2018-05-24] MEDS: clonazePAM 0.5 MG TABLET PO SCH ×2 (09:25→20:36)
[2018-05-24] MEDS: INSULIN LISPRO 300 UNITS/3 ML INSULN.PEN. SQ SCH ×4 (09:25→17:00)
[2018-05-24] MEDS: NON FORMULARY ITEM PO SCH ×3 (12:08→20:39)
[2018-05-24 16:25] VITALS: BP 115/67
[2018-05-24] MEDS: ASCORBIC ACID 500 MG TABLET PO SCH (17:48)
[2018-05-24] MEDS: rOPINIRole 2 MG TABLET. PO SCH (17:49)
[2018-05-24] MEDS: OMEGA-3 FATTY ACIDS/FISH OIL 1,000 MG CAPSULE. PO SCH (17:49)
[2018-05-24] MEDS: CYANOCOBALAMIN (VITAMIN B-12) 1,000 MCG TABLET. PO SCH (17:49)
[2018-05-24] MEDS: VITAMIN E 200 UNIT CAPSULE. PO SCH (17:53)
--- NOTE | 2018-05-24 20:48 | PDOC ---
Exam Note: Junior Note: Please also refer to the separate dictated note~for this date of service dictated separately.~Patient seen individually. Discussed the patient with Nursing staff reviewed the chart.~Reviewed interim history and current functioning. Reviewed vital signs,~Labs/ Radiology~and current medications noted below. Continue current treatment with the changes noted in the dictated addendum note Assessment: Vital Signs: Vital Signs Date Time Temp Pulse Resp B/P (MAP) Pulse Ox O2 Delivery O2 Flow Rate FiO2 05/24/18 16:25 97.5 80 20 115/67 (83) 98 05/23/18 15:45 Room Air I&O Intake and Output 05/24/18 07:00 Intake Total 1080 ml Balance 1080 ml Intake Oral 1080 ml # Bowel Movements 1 Labs: Laboratory Tests Test 05/24/18 07:35 05/24/18 12:02 05/24/18 17:17 05/24/18 19:22 Glucose (Fingerstick) 157 mg/dL (70-99) H 125 mg/dL (70-99) H 122 mg/dL (70-99) H 137 mg/dL (70-99) H Current Medications: Meds: Current Medications Acetaminophen (Tylenol) 650 mg PRN Q6HRS PRN PO PAIN / TEMP; Start 05/12/18 at 21:45; Stop 05/12/18 at 22:47; Status DC Multi-Ingredient Ointment (Analgesic [place]) 1 mynor PRN QID PRN TP MUSCLE PAIN Last administered on 05/16/18at 02:53; Start 05/12/18 at 21:45 Al Hydroxide/Mg Hydroxide (Mylanta Plus Xs) 15 ml PRN AFTMEALHC PRN PO DYSPEPSIA; Start 05/12/18 at 21:45 Magnesium Hydroxide (Milk Of Magnesia) 2,400 mg PRN QHS PRN PO CONSTIPATION; Start 05/12/18 at 21:45 Sertraline HCl (Zoloft) 50 mg DAILY PO Last administered on 05/13/18at 08:08; Start 05/13/18 at 09:00; Stop 05/13/18 at 13:38; Status DC Acetaminophen (Tylenol) 650 mg PRN Q4HRS PRN PO PAIN / TEMP Last administered on 05/22/18at 18:13; Start 05/12/18 at 22:30 Ascorbic Acid (Vitamin C) 500 mg DAILY@1700 PO Last administered on 05/24/18at 17:48; Start 05/13/18 at 17:00 Carbidopa/Levodopa (Sinemet 25/100) 1.5 tab 0200,0530,1100,1700 PO Last administered on 05/24/18at 17:50; Start 05/13/18 at 02:00 Carbidopa/Levodopa (Sinemet 25/100) 1 tab 0845,1415,2000,2230 PO Last administered on 05/24/18at 12:59; Start 05/12/18 at 23:00 Cyanocobalamin (Vitamin B-12) 250 mcg DAILY@1700 PO Last administered on at 17:49; Start 05/13/18 at 17:00 Hydrocortisone (Proctosol-Hc) 1 mynor PRN QID PRN RC HEMORRHOIDS; Start 05/12/18 at 22:30 Baclofen (Lioresal) 10 mg QID PO Last administered on 05/24/18at 17:51; Start at 23:00 Entacapone (Comtan) 200 mg Q4HRS PO ; Start 05/13/18 at 00:00; Stop 05/14/18 at 12:26; Status DC Lisinopril (Prinivil) 20 mg DAILY PO Last administered on 05/24/18at 09:00; Start 05/13/18 at 09:00 Calcium/Vitamin D (Oscal D 500mg/ 200uts) 1 tab BID@0530,0845 PO Last administered on 05/24/18at 09:24; Start 05/13/18 at 05:30 Cefpodoxime Proxetil (Vantin) 200 mg BID PO Last administered on 05/19/18at 08: 06; Start 05/12/18 at 23:00; Stop 05/19/18 at 09:01; Status DC Fish Oil (Fish Oil) 1,000 mg DAILY@1700 PO Last administered on 05/24/18at 17:49 ; Start 05/13/18 at 17:00 Non-Formulary Medication (Levalbuterol Hcl (Xopenex)) 1.25 mg PRN Q6HRS PRN IH SHORTNESS OF BREATH; Start 05/12/18 at 22:45; Status UNV Levetiracetam (Keppra) 500 mg BID PO Last administered on 05/24/18 09:13; Start 05/12/18 at 23:00 Magnesium Oxide (Magnesium Oxide) 400 mg DAILY PO Last administered on 09:15; Start 05/13/18 at 09:00 Multivitamins/ Calcium (Thera-M Plus) 1 tab DAILY PO Last administered on at 09:15; Start 05/13/18 at 09:00 Non-Formulary Medication ([place]-3 Acid Ethyl Esters (Lovaza)) 1 gm DAILY@1700 PO ; Start 05/13/18 at 17:00; Stop 05/13/18 at 17:00; Status DC Pantoprazole Sodium (Protonix) 20 mg BIDWMEALS PO Last administered on 17:49; Start 05/13/18 at 08:00 Potassium Chloride (Klor-Con) 20 meq DAILYWBKFT PO Last administered on 09:15; Start 05/13/18 at 08:00 Ropinirole HCl (Requip) 1.5 mg TID@0200,0530,1100 PO Last administered on 12:07; Start 05/13/18 at 02:00 Ropinirole HCl (Requip) 2 mg DAILY@1700 PO Last administered on 05/24/18 17:49 ; Start 05/13/18 at 17:00 Vitamin E 200 unit DAILY@1700 PO Last administered on 05/24/18at 17:53; Start at 17:00 Insulin Human Lispro (HumaLOG) 0-9 UNITS TIDWMEALS SQ Last administered on 05/23 11:55; Start 05/13/18 at 08:00 Dextrose 12.5 gm PRN Q15MIN PRN IV SEE COMMENTS; Start 05/12/18 at 22:45 Albuterol Sulfate (Ventolin) 2.5 mg PRN Q6HRS PRN NEB SHORTNESS OF BREATH; Start 05/12/18 at 23:00 Lactobacillus Rhamnosus (Culturelle) 1 cap BID PO Last administered on at 09:14; Start 05/13/18 at 09:00 Clonazepam (KlonoPIN) 0.5 mg TID PO Last administered on 05/14/18at 07:28; Start 05/13/18 at 14:00; Stop 05/14/18 at 12:07; Status DC Oxycodone/ Acetaminophen (Percocet 10/325) 1 tab PRN QID PRN PO PAIN Last administered on 05/14/18at 07:28; Start 05/13/18 at 13:45; Stop 05/14/18 at 17:29 ; Status DC Metformin HCl (Glucophage) 1,000 mg DAILYWBKFT PO Last administered on at 09:14; Start 05/14/18 at 08:00 Metformin HCl (Glucophage) 500 mg DAILYWSUP PO Last administered on 05/24/18at 17:55; Start 05/13/18 at 17:00 Sertraline HCl (Zoloft) 25 mg DAILY PO Last administered on 05/16/18at 08:02; Start 05/14/18 at 09:00; Stop 05/16/18 at 18:02; Status DC Clonazepam (KlonoPIN) 0.5 mg BID PO Last administered on 05/16/18at 20:04; Start 05/14/18 at 21:00; Stop 05/16/18 at 21:01; Status DC Clonazepam (KlonoPIN) 0.25 mg DAILY@1400 PO Last administered on 05/16/18at 14: 42; Start 05/14/18 at 14:00; Stop 05/16/18 at 14:01; Status DC Non-Formulary Medication 1 ea Q4HRS PO Last administered on 05/24/18at 09:16; Start 05/14/18 at 16:00; Stop 05/24/18 at 12:04; Status DC Clonazepam (KlonoPIN) 0.25 mg Taper BID PO Last administered on 05/24/18at 09:25 ; Start 05/17/18 at 09:00; Stop 05/29/18 at 08:59 Clonazepam (KlonoPIN) 0.5 mg HS PO Last administered on 05/19/18at 20:03; Start 05/17/18 at 21:00; Stop 05/19/18 at 21:01; Status DC Olanzapine (ZyPREXA ZYDIS) 1.25 mg PRN Q2HR PRN PO PSYCHOSIS; Start 05/14/18 at 14:15 Oxycodone/ Acetaminophen (Percocet 10/325) 1 tab QID PRN PO PAIN; Start at 21:00; Stop 05/14/18 at 21:00; Status DC Oxycodone/ Acetaminophen (Percocet 10/325) 1 tab QID PO Last administered on at 17:50; Start 05/14/18 at 21:00 Sertraline HCl (Zoloft) 50 mg DAILY PO Last administered on 05/23/18at 08:37; Start 05/17/18 at 09:00; Stop 05/23/18 at 19:17; Status DC Nystatin (Nystop) 15 mynor STK-MED ONCE TP ; Start 05/19/18 at 22:19; Stop at 22:25; Status DC Nystatin (Nystop) 1 mynor PRN BID PRN TP SKIN BREAKDOWN; Start 05/19/18 at 22:30 Nystatin (Nystop) 1 mynor PRN BID PRN TP SKIN PROTECTION; Start 05/19/18 at 22:30 ; Status UNV Sertraline HCl (Zoloft) 75 mg DAILY PO Last administered on 05/24/18at 09:24; Start 05/24/18 at 09:00; Stop 05/26/18 at 23:50 Non-Formulary Medication 0.25 ea Q4HRS PO Last administered on 05/24/18at 17:54 ; Start 05/24/18 at 12:00 Sertraline HCl (Zoloft) 100 mg DAILY PO ; Start 05/27/18 at 09:00 Active Scripts Active Reported Oxycodone-Acetaminophen 10-325 (Oxycodone Hcl/Acetaminophen) 1 Each Tablet 1 Each PO PRN QID PRN Metformin Hcl 500 Mg Tablet 500 Mg PO DAILYWSUP Metformin Hcl 1,000 Mg Tablet 1,000 Mg PO DAILYWBKFT Clonazepam 0.5 Mg Tablet 0.5 Mg PO TID Zoloft (Sertraline Hcl) 25 Mg Tablet 25 Mg PO DAILY Requip (Ropinirole Hcl) 1 Mg Tablet 2 Mg PO DAILY@1700 Requip (Ropinirole Hcl) 1 Mg Tablet 1.5 Mg PO TID@0200,0530,1100 Keppra (Levetiracetam) 500 Mg Tablet 500 Mg PO BID Zoloft (Sertraline Hcl) 50 Mg Tablet 50 Mg PO DAILY Potassium Chloride 20 Meq Tablet.er 20 Meq PO DAILY Protonix (Pantoprazole Sodium) 20 Mg Tablet.dr 20 Mg PO BIDWMEALS Lovaza ([place]-3 Acid Ethyl Esters) 1 Gm Capsule 1 Gm PO DAILY@1700 Multivitamins (Multivitamin) 1 Each Tablet 1 Each PO DAILY Mag-Oxide (Magnesium Oxide) 400 Mg Tablet 400 Mg PO DAILY Xopenex (Levalbuterol Hcl) 1.25 Mg/3 Ml Vial.neb 1.25 Mg IH PRN Q6HRS PRN [place]-3 Krill Oil 300 Mg Sftg ([place]rill/[place]-3/Dha/Epa/Lipids) 1 Each Capsule 1 Each PO DAILY@1700 Anusol-Hc (Hydrocortisone) 30 Gm Cream..g. 1 [place] RC PRN QID PRN Comtan (Entacapone) 200 Mg Tablet 50 Mg PO Q4HRS Vitamin E (Vitamin E Acetate) 200 Unit Capsule 200 Unit PO DAILY@1700 Vitamin B-12 (Cyanocobalamin (Vitamin B-12)) 100 Mcg Tablet 100 Mcg PO DAILY@ 1700 Cefdinir 300 Mg Capsule 300 Mg PO BID 7 Days Sinemet 25-100 Mg Tablet (Carbidopa/Levodopa) 1 Each Tablet 1 Each PO QID Sinemet 25-100 Mg Tablet (Carbidopa/Levodopa) 1 Each Tablet 1 Each PO QID Calcium 600 + Vit D 200 Tablet (Calcium Carbonate/Vitamin D3) 1 Each Tablet 1 Each PO BID@0530,0845 Lotensin (Benazepril Hcl) 20 Mg Tablet 20 Mg PO DAILY Baclofen 10 Mg Tablet 10 Mg PO QID Ascorbic Acid 500 Mg Tablet 500 Mg PO DAILY@1700 Tylenol (Acetaminophen) 325 Mg Tablet 650 Mg PO PRN Q4HRS PRN I have reviewed the current psychotropics carefully including drug interactions. Risk benefit ratio favors no change other than as noted in my dictated progress note. Diagnosis: Problems: (1) Anxiety disorder (2) Parkinson's disease (3) Impulse control disorder (4) Major depressive disorder, recurrent episode (5) Delirium due to general medical condition VIRY MCGRAW MD May 24, 2018 20:48
--- NOTE | 2018-05-24 23:26 | PN ---
DATE: 05/23/2018 This is a late entry for 05/23/2018 covers elements not covered in my initial note. SUBJECTIVE: I met with the patient in the evening. The patient slept 6 hours previous night, is compliant with medications and gets frustrated with having to take her Parkinson's medications multiple times a day. She acts helpless per nursing report, can do more for herself than she does. PT was pushing the patient to walk, but she was resistive to this. REVIEW OF SYSTEMS: Ambulation impaired, in wheelchair. No CV, , pulmonary, eye, ENT system symptoms on review. MENTAL STATUS EXAM: Reasonably oriented. Speech is coherent, has some latency. Abstraction fair, computation impaired, language function intact. Able to do one step serial sevens, able to spell world forward no error, backward 1 error. Mood and affect is improved. LABORATORY DATA: Reviewed. IMPRESSION: Unchanged from initial note. PLAN: Increase Zoloft from 50 to 75 mg a day. Taper the Klonopin. Continue Zyprexa p.r.n. VIRY MCGRAW MD DR: JAIMIE/maverick JOB#: [id number] / [id number]
[2018-05-25] MEDS: NON FORMULARY ITEM PO SCH ×7 (00:34→23:01)
[2018-05-25] MEDS: rOPINIRole 1 MG TABLET. PO SCH ×3 (03:37→12:28)
[2018-05-25] MEDS: CARBIDOPA/LEVODOPA 25/100MG TABLET PO SCH ×8 (03:37→23:01)
[2018-05-25 05:23] VITALS: BP 116/72
[2018-05-25] MEDS: CALCIUM CARB/VIT D3 500/200 TABLET PO SCH ×2 (05:53→10:31)
[2018-05-25] MEDS: INSULIN LISPRO 300 UNITS/3 ML INSULN.PEN. SQ SCH ×3 (07:34→17:00)
[2018-05-25] MEDS: SERTRALINE 50 MG TABLET. PO SCH (10:22)
[2018-05-25] MEDS: PANTOPRAZOLE 40 MG TABLET. PO SCH ×2 (10:23→17:56)
[2018-05-25] MEDS: BACLOFEN 10 MG TABLET PO SCH ×4 (10:23→20:31)
[2018-05-25] MEDS: metFORMIN 500 MG TABLET PO SCH ×2 (10:23→17:56)
[2018-05-25] MEDS: levETIRAcetam 500 MG TABLET PO SCH ×2 (10:24→20:31)
[2018-05-25] MEDS: LISINOPRIL 20 MG TABLET PO SCH (10:25)
[2018-05-25] MEDS: MULTIVITAMIN with MINERAL TABLET. PO SCH (10:25)
[2018-05-25] MEDS: POTASSIUM CHLORIDE 20 MEQ TABLET.ER. PO SCH (10:25)
[2018-05-25] MEDS: MAGNESIUM OXIDE 400 MG TABLET PO SCH (10:25)
[2018-05-25] MEDS: LACTOBACILLUS RHAMNOSUS GG 1 CAPSULE. PO SCH ×2 (10:25→20:31)
[2018-05-25] MEDS: oxyCODONE/APAP 10/325 1 TAB TABLET PO SCH ×4 (10:31→20:34)
[2018-05-25] MEDS: clonazePAM 0.5 MG TABLET PO SCH ×2 (10:32→20:34)
[2018-05-25 15:55] VITALS: BP 94/54
[2018-05-25] MEDS: rOPINIRole 2 MG TABLET. PO SCH (17:55)
[2018-05-25] MEDS: OMEGA-3 FATTY ACIDS/FISH OIL 1,000 MG CAPSULE. PO SCH (17:55)
[2018-05-25] MEDS: ASCORBIC ACID 500 MG TABLET PO SCH (17:56)
[2018-05-25] MEDS: VITAMIN E 200 UNIT CAPSULE. PO SCH (17:59)
[2018-05-25] MEDS: CYANOCOBALAMIN (VITAMIN B-12) 1,000 MCG TABLET. PO SCH (17:59)
--- NOTE | 2018-05-25 20:29 | PDOC ---
Exam Note: Junior Note: Please also refer to the separate dictated note~for this date of service dictated separately.~Patient seen individually. Discussed the patient with Nursing staff reviewed the chart.~Reviewed interim history and current functioning. Reviewed vital signs,~Labs/ Radiology~and current medications noted below. Continue current treatment with the changes noted in the dictated addendum note Assessment: Vital Signs: Vital Signs Date Time Temp Pulse Resp B/P (MAP) Pulse Ox O2 Delivery O2 Flow Rate FiO2 05/25/18 15:55 98.1 73 18 94/54 (67) 94 Room Air I&O Intake and Output 05/25/18 07:00 Intake Total 1680 ml Balance 1680 ml Intake Oral 1680 ml # Bowel Movements 1 Labs: Laboratory Tests Test 05/25/18 07:18 05/25/18 12:15 05/25/18 17:08 05/25/18 19:12 Glucose (Fingerstick) 126 mg/dL (70-99) H 138 mg/dL (70-99) H 119 mg/dL (70-99) H 182 mg/dL (70-99) H Current Medications: Meds: Current Medications Acetaminophen (Tylenol) 650 mg PRN Q6HRS PRN PO PAIN / TEMP; Start 05/12/18 at 21:45; Stop 05/12/18 at 22:47; Status DC Multi-Ingredient Ointment (Analgesic [place]) 1 mynor PRN QID PRN TP MUSCLE PAIN Last administered on 05/16/18at 02:53; Start 05/12/18 at 21:45 Al Hydroxide/Mg Hydroxide (Mylanta Plus Xs) 15 ml PRN AFTMEALHC PRN PO DYSPEPSIA; Start 05/12/18 at 21:45 Magnesium Hydroxide (Milk Of Magnesia) 2,400 mg PRN QHS PRN PO CONSTIPATION; Start 05/12/18 at 21:45 Sertraline HCl (Zoloft) 50 mg DAILY PO Last administered on 05/13/18at 08:08; Start 05/13/18 at 09:00; Stop 05/13/18 at 13:38; Status DC Acetaminophen (Tylenol) 650 mg PRN Q4HRS PRN PO PAIN / TEMP Last administered on 05/22/18at 18:13; Start 05/12/18 at 22:30 Ascorbic Acid (Vitamin C) 500 mg DAILY@1700 PO Last administered on 05/25/18at 17:56; Start 05/13/18 at 17:00 Carbidopa/Levodopa (Sinemet 25/100) 1.5 tab 0200,0530,1100,1700 PO Last administered on 05/25/18at 17:56; Start 05/13/18 at 02:00 Carbidopa/Levodopa (Sinemet 25/100) 1 tab 0845,1415,2000,2230 PO Last administered on 05/25/18at 13:41; Start 05/12/18 at 23:00 Cyanocobalamin (Vitamin B-12) 250 mcg DAILY@1700 PO Last administered on at 17:59; Start 05/13/18 at 17:00 Hydrocortisone (Proctosol-Hc) 1 mynor PRN QID PRN RC HEMORRHOIDS; Start 05/12/18 at 22:30 Baclofen (Lioresal) 10 mg QID PO Last administered on 05/25/18at 17:56; Start at 23:00 Entacapone (Comtan) 200 mg Q4HRS PO ; Start 05/13/18 at 00:00; Stop 05/14/18 at 12:26; Status DC Lisinopril (Prinivil) 20 mg DAILY PO Last administered on 05/25/18at 10:25; Start 05/13/18 at 09:00 Calcium/Vitamin D (Oscal D 500mg/ 200uts) 1 tab BID@0530,0845 PO Last administered on 05/25/18at 10:31; Start 05/13/18 at 05:30 Cefpodoxime Proxetil (Vantin) 200 mg BID PO Last administered on 05/19/18at 08: 06; Start 05/12/18 at 23:00; Stop 05/19/18 at 09:01; Status DC Fish Oil (Fish Oil) 1,000 mg DAILY@1700 PO Last administered on 05/25/18at 17:55 ; Start 05/13/18 at 17:00 Non-Formulary Medication (Levalbuterol Hcl (Xopenex)) 1.25 mg PRN Q6HRS PRN IH SHORTNESS OF BREATH; Start 05/12/18 at 22:45; Status UNV Levetiracetam (Keppra) 500 mg BID PO Last administered on 05/25/18 10:24; Start 05/12/18 at 23:00 Magnesium Oxide (Magnesium Oxide) 400 mg DAILY PO Last administered on 10:25; Start 05/13/18 at 09:00 Multivitamins/ Calcium (Thera-M Plus) 1 tab DAILY PO Last administered on 10:25; Start 05/13/18 at 09:00 Non-Formulary Medication ([place]-3 Acid Ethyl Esters (Lovaza)) 1 gm DAILY@1700 PO ; Start 05/13/18 at 17:00; Stop 05/13/18 at 17:00; Status DC Pantoprazole Sodium (Protonix) 20 mg BIDWMEALS PO Last administered on 17:56; Start 05/13/18 at 08:00 Potassium Chloride (Klor-Con) 20 meq DAILYWBKFT PO Last administered on 10:25; Start 05/13/18 at 08:00 Ropinirole HCl (Requip) 1.5 mg TID@0200,0530,1100 PO Last administered on 12:28; Start 05/13/18 at 02:00 Ropinirole HCl (Requip) 2 mg DAILY@1700 PO Last administered on 05/25/18 17:55 ; Start 05/13/18 at 17:00 Vitamin E 200 unit DAILY@1700 PO Last administered on 05/25/18at 17:59; Start at 17:00 Insulin Human Lispro (HumaLOG) 0-9 UNITS TIDWMEALS SQ Last administered on 05/23at 11:55; Start 05/13/18 at 08:00 Dextrose 12.5 gm PRN Q15MIN PRN IV SEE COMMENTS; Start 05/12/18 at 22:45 Albuterol Sulfate (Ventolin) 2.5 mg PRN Q6HRS PRN NEB SHORTNESS OF BREATH; Start 05/12/18 at 23:00 Lactobacillus Rhamnosus (Culturelle) 1 cap BID PO Last administered on at 10:25; Start 05/13/18 at 09:00 Clonazepam (KlonoPIN) 0.5 mg TID PO Last administered on 05/14/18at 07:28; Start 05/13/18 at 14:00; Stop 05/14/18 at 12:07; Status DC Oxycodone/ Acetaminophen (Percocet 10/325) 1 tab PRN QID PRN PO PAIN Last administered on 05/14/18at 07:28; Start 05/13/18 at 13:45; Stop 05/14/18 at 17:29 ; Status DC Metformin HCl (Glucophage) 1,000 mg DAILYWBKFT PO Last administered on at 10:23; Start 05/14/18 at 08:00 Metformin HCl (Glucophage) 500 mg DAILYWSUP PO Last administered on 05/25/18at 17:56; Start 05/13/18 at 17:00 Sertraline HCl (Zoloft) 25 mg DAILY PO Last administered on 05/16/18at 08:02; Start 05/14/18 at 09:00; Stop 05/16/18 at 18:02; Status DC Clonazepam (KlonoPIN) 0.5 mg BID PO Last administered on 05/16/18at 20:04; Start 05/14/18 at 21:00; Stop 05/16/18 at 21:01; Status DC Clonazepam (KlonoPIN) 0.25 mg DAILY@1400 PO Last administered on 05/16/18at 14: 42; Start 05/14/18 at 14:00; Stop 05/16/18 at 14:01; Status DC Non-Formulary Medication 1 ea Q4HRS PO Last administered on 05/24/18at 09:16; Start 05/14/18 at 16:00; Stop 05/24/18 at 12:04; Status DC Clonazepam (KlonoPIN) 0.25 mg Taper BID PO Last administered on 05/25/18at 10:32 ; Start 05/17/18 at 09:00; Stop 05/29/18 at 08:59 Clonazepam (KlonoPIN) 0.5 mg HS PO Last administered on 05/19/18at 20:03; Start 05/17/18 at 21:00; Stop 05/19/18 at 21:01; Status DC Olanzapine (ZyPREXA ZYDIS) 1.25 mg PRN Q2HR PRN PO PSYCHOSIS; Start 05/14/18 at 14:15 Oxycodone/ Acetaminophen (Percocet 10/325) 1 tab QID PRN PO PAIN; Start at 21:00; Stop 05/14/18 at 21:00; Status DC Oxycodone/ Acetaminophen (Percocet 10/325) 1 tab QID PO Last administered on at 17:56; Start 05/14/18 at 21:00 Sertraline HCl (Zoloft) 50 mg DAILY PO Last administered on 05/23/18at 08:37; Start 05/17/18 at 09:00; Stop 05/23/18 at 19:17; Status DC Nystatin (Nystop) 15 mynor STK-MED ONCE TP ; Start 05/19/18 at 22:19; Stop at 22:25; Status DC Nystatin (Nystop) 1 mynor PRN BID PRN TP SKIN BREAKDOWN; Start 05/19/18 at 22:30 Nystatin (Nystop) 1 mynor PRN BID PRN TP SKIN PROTECTION; Start 05/19/18 at 22:30 ; Status UNV Sertraline HCl (Zoloft) 75 mg DAILY PO Last administered on 05/25/18at 10:22; Start 05/24/18 at 09:00; Stop 05/26/18 at 23:50 Non-Formulary Medication 0.25 ea Q4HRS PO Last administered on 05/25/18at 17:57 ; Start 05/24/18 at 12:00 Sertraline HCl (Zoloft) 100 mg DAILY PO ; Start 05/27/18 at 09:00 Active Scripts Active Reported Oxycodone-Acetaminophen 10-325 (Oxycodone Hcl/Acetaminophen) 1 Each Tablet 1 Each PO PRN QID PRN Metformin Hcl 500 Mg Tablet 500 Mg PO DAILYWSUP Metformin Hcl 1,000 Mg Tablet 1,000 Mg PO DAILYWBKFT Clonazepam 0.5 Mg Tablet 0.5 Mg PO TID Zoloft (Sertraline Hcl) 25 Mg Tablet 25 Mg PO DAILY Requip (Ropinirole Hcl) 1 Mg Tablet 2 Mg PO DAILY@1700 Requip (Ropinirole Hcl) 1 Mg Tablet 1.5 Mg PO TID@0200,0530,1100 Keppra (Levetiracetam) 500 Mg Tablet 500 Mg PO BID Zoloft (Sertraline Hcl) 50 Mg Tablet 50 Mg PO DAILY Potassium Chloride 20 Meq Tablet.er 20 Meq PO DAILY Protonix (Pantoprazole Sodium) 20 Mg Tablet.dr 20 Mg PO BIDWMEALS Lovaza ([place]-3 Acid Ethyl Esters) 1 Gm Capsule 1 Gm PO DAILY@1700 Multivitamins (Multivitamin) 1 Each Tablet 1 Each PO DAILY Mag-Oxide (Magnesium Oxide) 400 Mg Tablet 400 Mg PO DAILY Xopenex (Levalbuterol Hcl) 1.25 Mg/3 Ml Vial.neb 1.25 Mg IH PRN Q6HRS PRN [place]-3 Krill Oil 300 Mg Sftg (Krill/[place]-3/Dha/Epa/Lipids) 1 Each Capsule 1 Each PO DAILY@1700 Anusol-Hc (Hydrocortisone) 30 Gm Cream..g. 1 Mynor RC PRN QID PRN Comtan (Entacapone) 200 Mg Tablet 50 Mg PO Q4HRS Vitamin E (Vitamin E Acetate) 200 Unit Capsule 200 Unit PO DAILY@1700 Vitamin B-12 (Cyanocobalamin (Vitamin B-12)) 100 Mcg Tablet 100 Mcg PO DAILY@ 1700 Cefdinir 300 Mg Capsule 300 Mg PO BID 7 Days Sinemet 25-100 Mg Tablet (Carbidopa/Levodopa) 1 Each Tablet 1 Each PO QID Sinemet 25-100 Mg Tablet (Carbidopa/Levodopa) 1 Each Tablet 1 Each PO QID Calcium 600 + Vit D 200 Tablet (Calcium Carbonate/Vitamin D3) 1 Each Tablet 1 Each PO BID@0530,0845 Lotensin (Benazepril Hcl) 20 Mg Tablet 20 Mg PO DAILY Baclofen 10 Mg Tablet 10 Mg PO QID Ascorbic Acid 500 Mg Tablet 500 Mg PO DAILY@1700 Tylenol (Acetaminophen) 325 Mg Tablet 650 Mg PO PRN Q4HRS PRN I have reviewed the current psychotropics carefully including drug interactions. Risk benefit ratio favors no change other than as noted in my dictated progress note. Diagnosis: Problems: (1) Anxiety disorder (2) Parkinson's disease (3) Impulse control disorder (4) Major depressive disorder, recurrent episode (5) Delirium due to general medical condition VIRY MCGRAW MD May 25, 2018 20:29
[2018-05-26] MEDS ORDERED: ALBU2.5V14 NEB (00:39)
[2018-05-26] MEDS ORDERED: LACT1CAP21 PO (00:40)
[2018-05-26] MEDS ORDERED: MAG-27 PO (00:41)
[2018-05-26] MEDS ORDERED: MAGN2400 PO (00:41)
[2018-05-26] MEDS ORDERED: METH29OI TP (00:42)
[2018-05-26] MEDS ORDERED: NYST15PO9 TP (00:42)
[2018-05-26] MEDS ORDERED: SERT100T PO (00:43)
[2018-05-26] MEDS ORDERED: OLAN5TAB7 PO (00:43)
[2018-05-26] MEDS ORDERED: INSU100V SQ (00:50)
[2018-05-26] MEDS: CARBIDOPA/LEVODOPA 25/100MG TABLET PO SCH ×3 (03:32→08:54)
[2018-05-26] MEDS: rOPINIRole 1 MG TABLET. PO SCH ×2 (03:32→05:18)
[2018-05-26] MEDS: NON FORMULARY ITEM PO SCH ×2 (03:38→08:59)
[2018-05-26] MEDS: CALCIUM CARB/VIT D3 500/200 TABLET PO SCH ×2 (05:18→08:58)
[2018-05-26 05:51] VITALS: BP 107/72
[2018-05-26] MEDS: INSULIN LISPRO 300 UNITS/3 ML INSULN.PEN. SQ SCH (08:00)
[2018-05-26] MEDS: metFORMIN 500 MG TABLET PO SCH (08:51)
[2018-05-26] MEDS: POTASSIUM CHLORIDE 20 MEQ TABLET.ER. PO SCH (08:51)
[2018-05-26] MEDS: MULTIVITAMIN with MINERAL TABLET. PO SCH (08:54)
[2018-05-26] MEDS: LACTOBACILLUS RHAMNOSUS GG 1 CAPSULE. PO SCH (08:54)
[2018-05-26] MEDS: levETIRAcetam 500 MG TABLET PO SCH (08:54)
[2018-05-26] MEDS: BACLOFEN 10 MG TABLET PO SCH (08:54)
[2018-05-26] MEDS: MAGNESIUM OXIDE 400 MG TABLET PO SCH (08:54)
[2018-05-26] MEDS: PANTOPRAZOLE 40 MG TABLET. PO SCH (08:54)
[2018-05-26] MEDS: SERTRALINE 50 MG TABLET. PO SCH (08:55)
[2018-05-26 08:56] VITALS: BP 107/72
[2018-05-26] MEDS: LISINOPRIL 20 MG TABLET PO SCH (08:56)
[2018-05-26] MEDS: clonazePAM 0.5 MG TABLET PO SCH (08:58)
[2018-05-26] MEDS: oxyCODONE/APAP 10/325 1 TAB TABLET PO SCH (08:59)
--- NOTE | 2018-05-26 20:41 | PDOC ---
Exam Note: Junior Note: Please also refer to the separate dictated note~for this date of service dictated separately.~Patient seen individually. Discussed the patient with Nursing staff reviewed the chart.~Reviewed interim history and current functioning. Reviewed vital signs,~Labs/ Radiology~and current medications noted below. Continue current treatment with the changes noted in the dictated addendum note Assessment: Vital Signs: Vital Signs Date Time Temp Pulse Resp B/P (MAP) Pulse Ox O2 Delivery O2 Flow Rate FiO2 05/26/18 08:56 86 107/72 05/26/18 05:51 97.4 21 97 05/25/18 15:55 Room Air I&O Intake and Output 05/26/18 07:00 Intake Total 960 ml Balance 960 ml Intake Oral 960 ml # Bowel Movements 2 Current Medications: Meds: Current Medications Acetaminophen (Tylenol) 650 mg PRN Q6HRS PRN PO PAIN / TEMP; Start 05/12/18 at 21:45; Stop 05/12/18 at 22:47; Status DC Multi-Ingredient Ointment (Analgesic [place]) 1 mynor PRN QID PRN TP MUSCLE PAIN Last administered on 05/16/18at 02:53; Start 05/12/18 at 21:45; Stop 05/26/18 at 11:14; Status DC Al Hydroxide/Mg Hydroxide (Mylanta Plus Xs) 15 ml PRN AFTMEALHC PRN PO DYSPEPSIA; Start 05/12/18 at 21:45; Stop 05/26/18 at 11:14; Status DC Magnesium Hydroxide (Milk Of Magnesia) 2,400 mg PRN QHS PRN PO CONSTIPATION; Start 05/12/18 at 21:45; Stop 05/26/18 at 11:14; Status DC Sertraline HCl (Zoloft) 50 mg DAILY PO Last administered on 05/13/18at 08:08; Start 05/13/18 at 09:00; Stop 05/13/18 at 13:38; Status DC Acetaminophen (Tylenol) 650 mg PRN Q4HRS PRN PO PAIN / TEMP Last administered on 05/22/18at 18:13; Start 05/12/18 at 22:30; Stop 05/26/18 at 11:14; Status DC Ascorbic Acid (Vitamin C) 500 mg DAILY@1700 PO Last administered on 05/25/18at 17:56; Start 05/13/18 at 17:00; Stop 05/26/18 at 11:14; Status DC Carbidopa/Levodopa (Sinemet 25/100) 1.5 tab 0200,0530,1100,1700 PO Last administered on 05/26/18at 05:16; Start 05/13/18 at 02:00; Stop 05/26/18 at 11:14 ; Status DC Carbidopa/Levodopa (Sinemet 25/100) 1 tab 0845,1415,2000,2230 PO Last administered on 05/26/18at 08:54; Start 05/12/18 at 23:00; Stop 05/26/18 at 11:14 ; Status DC Cyanocobalamin (Vitamin B-12) 250 mcg DAILY@1700 PO Last administered on at 17:59; Start 05/13/18 at 17:00; Stop 05/26/18 at 11:14; Status DC Hydrocortisone (Proctosol-Hc) 1 mynor PRN QID PRN RC HEMORRHOIDS; Start 05/12/18 at 22:30; Stop 05/26/18 at 11:14; Status DC Baclofen (Lioresal) 10 mg QID PO Last administered on 05/26/18at 08:54; Start at 23:00; Stop 05/26/18 at 11:14; Status DC Entacapone (Comtan) 200 mg Q4HRS PO ; Start 05/13/18 at 00:00; Stop 05/14/18 at 12:26; Status DC Lisinopril (Prinivil) 20 mg DAILY PO Last administered on 05/26/18at 08:56; Start 05/13/18 at 09:00; Stop 05/26/18 at 11:14; Status DC Calcium/Vitamin D (Oscal D 500mg/ 200uts) 1 tab BID@0530,0845 PO Last administered on 05/26/18at 08:58; Start 05/13/18 at 05:30; Stop 05/26/18 at 11:14 ; Status DC Cefpodoxime Proxetil (Vantin) 200 mg BID PO Last administered on 05/19/18at 08: 06; Start 05/12/18 at 23:00; Stop 05/19/18 at 09:01; Status DC Fish Oil (Fish Oil) 1,000 mg DAILY@1700 PO Last administered on 05/25/18at 17:55 ; Start 05/13/18 at 17:00; Stop 05/26/18 at 11:14; Status DC Non-Formulary Medication (Levalbuterol Hcl (Xopenex)) 1.25 mg PRN Q6HRS PRN IH SHORTNESS OF BREATH; Start 05/12/18 at 22:45; Status UNV Levetiracetam (Keppra) 500 mg BID PO Last administered on 05/26/18at 08:54; Start 05/12/18 at 23:00; Stop 05/26/18 at 11:14; Status DC Magnesium Oxide (Magnesium Oxide) 400 mg DAILY PO Last administered on at 08:54; Start 05/13/18 at 09:00; Stop 05/26/18 at 11:14; Status DC Multivitamins/ Calcium (Thera-M Plus) 1 tab DAILY PO Last administered on at 08:54; Start 05/13/18 at 09:00; Stop 05/26/18 at 11:14; Status DC Non-Formulary Medication ([place]-3 Acid Ethyl Esters (Lovaza)) 1 gm DAILY@1700 PO ; Start 05/13/18 at 17:00; Stop 05/13/18 at 17:00; Status DC Pantoprazole Sodium (Protonix) 20 mg BIDWMEALS PO Last administered on at 08:54; Start 05/13/18 at 08:00; Stop 05/26/18 at 11:14; Status DC Potassium Chloride (Klor-Con) 20 meq DAILYWBKFT PO Last administered on at 08:51; Start 05/13/18 at 08:00; Stop 05/26/18 at 11:14; Status DC Ropinirole HCl (Requip) 1.5 mg TID@0200,0530,1100 PO Last administered on at 05:18; Start 05/13/18 at 02:00; Stop 05/26/18 at 11:14; Status DC Ropinirole HCl (Requip) 2 mg DAILY@1700 PO Last administered on 05/25/18at 17:55 ; Start 05/13/18 at 17:00; Stop 05/26/18 at 11:14; Status DC Vitamin E 200 unit DAILY@1700 PO Last administered on 05/25/18at 17:59; Start at 17:00; Stop 05/26/18 at 11:14; Status DC Insulin Human Lispro (HumaLOG) 0-9 UNITS TIDWMEALS SQ Last administered on 05/23at 11:55; Start 05/13/18 at 08:00; Stop 05/26/18 at 11:14; Status DC Dextrose 12.5 gm PRN Q15MIN PRN IV SEE COMMENTS; Start 05/12/18 at 22:45; Stop 05/26/18 at 11:14; Status DC Albuterol Sulfate (Ventolin) 2.5 mg PRN Q6HRS PRN NEB SHORTNESS OF BREATH; Start 05/12/18 at 23:00; Stop 05/26/18 at 11:14; Status DC Lactobacillus Rhamnosus (Culturelle) 1 cap BID PO Last administered on at 08:54; Start 05/13/18 at 09:00; Stop 05/26/18 at 11:14; Status DC Clonazepam (KlonoPIN) 0.5 mg TID PO Last administered on 05/14/18at 07:28; Start 05/13/18 at 14:00; Stop 05/14/18 at 12:07; Status DC Oxycodone/ Acetaminophen (Percocet 10/325) 1 tab PRN QID PRN PO PAIN Last administered on 05/14/18at 07:28; Start 05/13/18 at 13:45; Stop 05/14/18 at 17:29 ; Status DC Metformin HCl (Glucophage) 1,000 mg DAILYWBKFT PO Last administered on at 08:51; Start 05/14/18 at 08:00; Stop 05/26/18 at 11:14; Status DC Metformin HCl (Glucophage) 500 mg DAILYWSUP PO Last administered on 05/25/18at 17:56; Start 05/13/18 at 17:00; Stop 05/26/18 at 11:14; Status DC Sertraline HCl (Zoloft) 25 mg DAILY PO Last administered on 05/16/18at 08:02; Start 05/14/18 at 09:00; Stop 05/16/18 at 18:02; Status DC Clonazepam (KlonoPIN) 0.5 mg BID PO Last administered on 05/16/18at 20:04; Start 05/14/18 at 21:00; Stop 05/16/18 at 21:01; Status DC Clonazepam (KlonoPIN) 0.25 mg DAILY@1400 PO Last administered on 05/16/18at 14: 42; Start 05/14/18 at 14:00; Stop 05/16/18 at 14:01; Status DC Non-Formulary Medication 1 ea Q4HRS PO Last administered on 05/24/18at 09:16; Start 05/14/18 at 16:00; Stop 05/24/18 at 12:04; Status DC Clonazepam (KlonoPIN) 0.25 mg Taper DAILY PO Last administered on 05/26/18at 08: 58; Start 05/17/18 at 09:00; Stop 05/26/18 at 11:14; Status DC Clonazepam (KlonoPIN) 0.5 mg HS PO Last administered on 05/19/18at 20:03; Start 05/17/18 at 21:00; Stop 05/19/18 at 21:01; Status DC Olanzapine (ZyPREXA ZYDIS) 1.25 mg PRN Q2HR PRN PO PSYCHOSIS; Start 05/14/18 at 14:15; Stop 05/26/18 at 11:14; Status DC Oxycodone/ Acetaminophen (Percocet 10/325) 1 tab QID PRN PO PAIN; Start at 21:00; Stop 05/14/18 at 21:00; Status DC Oxycodone/ Acetaminophen (Percocet 10/325) 1 tab QID PO Last administered on at 08:59; Start 05/14/18 at 21:00; Stop 05/26/18 at 11:14; Status DC Sertraline HCl (Zoloft) 50 mg DAILY PO Last administered on 05/23/18at 08:37; Start 05/17/18 at 09:00; Stop 05/23/18 at 19:17; Status DC Nystatin (Nystop) 15 mynor STK-MED ONCE TP ; Start 05/19/18 at 22:19; Stop at 22:25; Status DC Nystatin (Nystop) 1 mynor PRN BID PRN TP SKIN BREAKDOWN; Start 05/19/18 at 22:30 ; Stop 05/26/18 at 11:14; Status DC Nystatin (Nystop) 1 mynor PRN BID PRN TP SKIN PROTECTION; Start 05/19/18 at 22:30 ; Status UNV Sertraline HCl (Zoloft) 75 mg DAILY PO Last administered on 05/26/18at 08:55; Start 05/24/18 at 09:00; Stop 05/26/18 at 11:14; Status DC Non-Formulary Medication 0.25 ea Q4HRS PO Last administered on 05/26/18at 08:59 ; Start 05/24/18 at 12:00; Stop 05/26/18 at 11:14; Status DC Sertraline HCl (Zoloft) 100 mg DAILY PO ; Start 05/27/18 at 09:00; Stop at 09:00; Status DC Active Scripts Active Reported Humalog (Insulin Lispro) 100 Unit/1 Ml Vial 0-9 Unit SQ TIDWMEALS BS 70-150= 0 units if eating/ 0 units if not eating or bedtime BS 151-200= 4 units if eating/ 0 units if not eating or bedtime BS 201-250= 5 units if eating/ 3 units if not eating or bedtime BS 251-300= 7 units if eating/ 4 units if not eating or bedtime BS 301-350= 9 units if eating/ 5 units if not eating or bedtime BS >/= 351, call physician for insulin orders Zoloft (Sertraline Hcl) 100 Mg Tablet 100 Mg PO DAILY Start taking 100mg daily on 05/27. Olanzapine Odt (Olanzapine) 5 Mg Tab.rapdis 1.25 Mg PO PRN Q2HR PRN Nystatin 15 Gm Powder 1 Mynor TP PRN BID PRN Analgesic [place] (Methyl Salicylate/Menthol) 28 Gm Oint...g. 1 Mynor TP PRN QID PRN Milk Of Magnesia (Magnesium Hydroxide) 2,400 Mg/10 Ml Oral.susp 2,400 Mg PO PRN QHS PRN [place]-Lanta Liquid (Mag Hydrox/Al Hydrox/Simeth) 355 Ml Oral.susp 15 Ml PO PRN AFTMEALHC PRN Culturelle (Lactobacillus Rhamnosus Gg) 1 Each Capsule 1 Cap PO BID Albuterol Sulfate Conc Neb Soln (Albuterol Sulfate) 2.5 Mg/0.5 Ml Vial.neb 2.5 Mg NEB PRN Q6HRS PRN Oxycodone-Acetaminophen 10-325 (Oxycodone Hcl/Acetaminophen) 1 Each Tablet 1 Each PO QID Metformin Hcl 500 Mg Tablet 500 Mg PO DAILYWSUP Metformin Hcl 1,000 Mg Tablet 1,000 Mg PO DAILYWBKFT Clonazepam 0.5 Mg Tablet 0.25 Mg PO TID X3 DAYS Take 0.25mg twice daily for 3 days, then discontinue. Zoloft (Sertraline Hcl) 25 Mg Tablet 25 Mg PO DAILY 3 Days Take 75mg daily for 3 days, then on 05/27 increase dose to 100mg daily. Requip (Ropinirole Hcl) 1 Mg Tablet 2 Mg PO DAILY@1700 Requip (Ropinirole Hcl) 1 Mg Tablet 1.5 Mg PO TID@0200,0530,1100 Keppra (Levetiracetam) 500 Mg Tablet 500 Mg PO BID Zoloft (Sertraline Hcl) 50 Mg Tablet 50 Mg PO DAILY 3 Days Take 75mg for 3 days, then on 05/27 increase dosage to 100mg daily. Potassium Chloride 20 Meq Tablet.er 20 Meq PO DAILYWBKFT Protonix (Pantoprazole Sodium) 20 Mg Tablet.dr 20 Mg PO BIDWMEALS Lovaza ([place]-3 Acid Ethyl Esters) 1 Gm Capsule 1 Gm PO DAILY@1700 Multivitamins (Multivitamin) 1 Each Tablet 1 Each PO DAILY Mag-Oxide (Magnesium Oxide) 400 Mg Tablet 400 Mg PO DAILY Anusol-Hc (Hydrocortisone) 30 Gm Cream..g. 1 Mynor RC PRN QID PRN Comtan (Entacapone) 200 Mg Tablet 50 Mg PO Q4HRS Vitamin E (Vitamin E Acetate) 200 Unit Capsule 200 Unit PO DAILY@1700 Vitamin B-12 (Cyanocobalamin (Vitamin B-12)) 100 Mcg Tablet 100 Mcg PO DAILY@ 1700 Sinemet 25-100 Mg Tablet (Carbidopa/Levodopa) 1 Each Tablet 1.5 Tab PO QID Take 1.5 tabs by mouth @0200, 0530, 1100, 1700. Sinemet 25-100 Mg Tablet (Carbidopa/Levodopa) 1 Each Tablet 1 Each PO QID Take 1 tab by mouth @0845, 1415, 2000, and 2230. Calcium 600 + Vit D 200 Tablet (Calcium Carbonate/Vitamin D3) 1 Each Tablet 1 Each PO BID@0530,0845 Lotensin (Benazepril Hcl) 20 Mg Tablet 20 Mg PO DAILY Baclofen 10 Mg Tablet 10 Mg PO QID Ascorbic Acid 500 Mg Tablet 500 Mg PO DAILY@1700 Tylenol (Acetaminophen) 325 Mg Tablet 650 Mg PO PRN Q4HRS PRN I have reviewed the current psychotropics carefully including drug interactions. Risk benefit ratio favors no change other than as noted in my dictated progress note. Diagnosis: Problems: (1) Anxiety disorder (2) Parkinson's disease (3) Impulse control disorder (4) Major depressive disorder, recurrent episode (5) Delirium due to general medical condition VIRY MCGRAW MD May 26, 2018 20:41
--- NOTE | 2018-05-26 22:08 | PN ---
DATE: 05/24/2018 This is a late entry for 05/24/2018 covers elements not covered in my initial note. SUBJECTIVE: I met with the patient in the evening. The patient slept 5-1/4 hours previous evening, resistive to cares in the morning, withdrawn, complains of increased pain. REVIEW OF SYSTEMS: Ambulation impaired, in wheelchair. No CV, , pulmonary, eye, ENT system symptoms on review. MENTAL STATUS EXAM: Oriented to herself and situation. Speech has some latency, coherent. Abstraction fair, computation able to do one step in serial sevens, remembered 1/3 objects at 3 minutes. No suicidal or homicidal ideation. LABORATORY DATA: Reviewed. IMPRESSION: Major depressive disorder in partial remission; anxiety disorder, unspecified; cognitive disorder, unspecified. Rest unchanged from admission. PLAN: Increase Zoloft from 75 to 100 mg a day. We will defer management of her Parkinson's to Dr. Pulido/Dr.Habib. VIRY MCGRAW MD DR: JAIMIE/maverick JOB#: [id number] / [id number]
--- NOTE | 2018-05-27 00:35 | PN ---
DATE: 05/25/2018 This is a late entry for 05/25/2018 covers elements not covered in my initial note. SUBJECTIVE: I met with the patient in the evening, staffed at a treatment team meeting with the entire team in the morning with the patient's , Kike shea. The patient slept 6-1/4 hours, somewhat withdrawn, but much less confused. REVIEW OF SYSTEMS: Ambulation impaired with walker. No CV, , pulmonary, eye system symptoms on review. MENTAL STATUS EXAM: Oriented to herself and situation. Speech moderate latency, often responses monosyllabic. Abstraction fair. Computation able to do one step on serial sevens, remembered 2/3 objects at 3 minutes. No suicidal or homicidal ideation. Somewhat withdrawn. No clear psychotic symptoms. LABORATORY DATA: Reviewed. IMPRESSION: Major depressive disorder in partial remission, delirium due to general medical condition, in remission, anxiety disorder, unspecified. PLAN: Continue to taper the Klonopin. Maintain the rest unchanged. Discharge to outpatient treatment on 05/26/2018. MAN Radha MCGRAW MD DR: JAIMIE/maverick JOB#: [id number] / [id number]
[2018-05-27] MEDS ORDERED: SERTRALINE 100 MG TABLET. PO SCH (09:00)
--- NOTE | 2018-05-28 12:33 | DS ---
DATE OF DISCHARGE: 05/26/2018 DISCHARGE SUMMARY AND PSYCHIATRY PROGRESS NOTE This is a late entry for 05/26/2018 and covers elements not covered in my initial note. I met with the patient in the evening. REASON FOR ADMISSION: Please refer to the admission history for details. Briefly, the patient is a 73-year-old female, referred to us from [facility] where she presented from home consequent to increased confusion, seizure episode and after she put herself on the floor and would not get out for about 3 days. While at [facility], she remained withdrawn, depressed, but did not have any further seizures and appeared extremely confused and delirious despite medical stabilization. She was referred for inpatient psychiatric stabilization. SIGNIFICANT FINDINGS AND CLINICAL COURSE: Following admission, the patient was seen daily individually by myself, followed medically per Dr. Pulido/Dr. Crane. I also met with the patient's at regular intervals during the hospitalization. Close review of her history was reflective of a single seizure episode and we consulted Dr. Ponce, Neurology to make recommendations whether the Keppra should be continued and I will defer to Dr. Ponce for this and outpatient followup post-discharge with the neurologist. From a psychiatric standpoint, she was on rather high dosages of Klonopin, which were gradually tapered and discontinued as it was felt high dose benzodiazepines did not quite indicated. She was depressed, withdrawn, started on Zoloft, increased gradually to 75 mg a day, with further increase to 100 mg a day plan for 05/27/2018. Gradually, mood improved. She was much more interactive, appropriate and reasonably oriented. Mood and affect improved. No suicidal or homicidal ideation prior to discharge. REVIEW OF SYSTEMS: Impaired ambulation, in wheelchair. No CV, , pulmonary, eye, ENT system symptoms on review. MENTAL STATUS EXAM: Oriented to herself and situation. Speech has moderate latency, often responses monosyllabic. Abstraction fair. Computation, able to do two steps and serial 7's. Attention span short. Mood and affect improved, less anxious. No suicidal or homicidal ideation prior to discharge. LABORATORY DATA: Reviewed. FINAL DIAGNOSES: Major depressive disorder, recurrent, in partial remission; anxiety disorder, unspecified; seizure disorder; cognitive disorder, unspecified. Rest unchanged from admission. DISCHARGE MEDICATIONS: Please refer to the EMRAD. DISCHARGE INSTRUCTIONS: Outpatient psychiatric and medical followup at home as arranged. Time for discharge day management is greater than 30 minutes. VIRY MCGRAW MD DR: JAIMIE/maverick JOB#: [id number] / [id number]
== END 2018-05-26 11:13 | disposition home or self-care (01) | DRG 885 ==
LOC: GEROPSY 20:30
PROVIDERS: ADMIT Psychiatry & Neurology Psychiatry; ATTEND Psychiatry & Neurology Psychiatry
DX: F33.3 Major depressive disorder, recurrent, severe with psychotic symptoms (principal); F05 Delirium due to known physiological condition; N39.0 Urinary tract infection, site not specified; E66.9 Obesity, unspecified; E11.9 Type 2 diabetes mellitus without complications; F06.4 Anxiety disorder due to known physiological condition; F33.41 Major depressive disorder, recurrent, in partial remission; F63.9 Impulse disorder, unspecified; G20 Parkinson's disease; G40.909 Epilepsy, unspecified, not intractable, without status epilepticus; I48.91 Unspecified atrial fibrillation; I10 Essential (primary) hypertension; K21.9 Gastro-esophageal reflux disease without esophagitis; W18.39XA Other fall on same level, initial encounter; Y93.89 Activity, other specified; Z68.34 Body mass index [BMI] 34.0-34.9, adult; Y99.8 Other external cause status; Y92.098 Other place in other non-institutional residence as the place of occurrence of the external cause; Z79.899 Other long term (current) drug therapy; Z86.718 Personal history of other venous thrombosis and embolism; Z87.440 Personal history of urinary (tract) infections
CPT/HCPCS: 36415; 80053; 80061; 81001; 82306; 82607; 82728; 82947; 83036; 83540; 83550; 83735; 84436; 84443; 84480; 85025; 86592; 93005; J1815; 97110; 97530; 97535